=== PATIENT | male | born 1950 | race Caucasian/White ===

== ENCOUNTER 2016-12-11 09:03 | Inpatient (IN) | payer OTHER ==
[~2016-12-11] VITALS: Ht 185.4 cm; Wt 76.2 kg
[2016-12-11] VITALS (10 sets, daily range): BP systolic 154–172; BP diastolic 68–94; PULSE 69–83; TEMP 36.5–36.9; O2SAT 90–96; Ht 185.4 cm; Wt 76.2 kg
[~2016-12-11 09:03] MED LIST: ADVIN50050 INH; ALBUAER19 INH; ALBUAER2 INH; AMLO-114 PO; ASPI81TA25 PO; ATRIN INH; CARV25TA2 PO; CLON0.2T11 PO; CLR10 PO; IPRASOL4 INH; MELA3TAB PO; NITR0.4S SL; OXGN; PRAZ5CAP2 PO; PRED20TA2 PO; TIOTCAP INH; TRAZ100T29 PO
[2016-12-11] MEDS ORDERED: DXP/75 PO (09:18)
[2016-12-11] MEDS ORDERED: PRED10TA PO (09:18)
[2016-12-11] MEDS ORDERED: THEO400T PO (09:18)
[2016-12-11] MEDS ORDERED: DOCU1TAB6 PO (09:18)
[2016-12-11] MEDS ORDERED: SNQ/25 PO (09:18)
[2016-12-11] MEDS ORDERED: FIBER PO (09:18)
[2016-12-11] MEDS ORDERED: FLM4 PO (09:18)
[2016-12-11] MEDS ORDERED: DOXE100C4 PO (09:18)
[2016-12-11] MEDS ORDERED: PROMETHAZINE HCL INJ 12.5 MG in SODIUM CHLORIDE 0.9% 50ML 50 ML IV STA (09:40)
[2016-12-11] MEDS ORDERED: OPTIRAY 320 IV PRN (09:45)
--- NOTE | 2016-12-11 09:49 | EMERGENCY ROOM VISIT NOTE ---
History Report prepared by Soni: [facility] [place] Under the Supervision of: Dr. Dean Woods M.D. First contact with patient: 09:36 Chief Complaint: ABDOMINAL PAIN Stated Complaint: ABD PAIN/ [facility] Nursing Triage Summary: Pt. has not had a bowel movement since . He is nauseated. Today while waiting in the med line at [facility], he had a syncopal episode. He denies injury. He arrives via BLS with guards stating his pain is 9/10. He has some SOB. History of Present Illness The patient is a 66 year old male who presents to the Emergency Room with complaints of worsening generalized abdominal pain that started a couple days ago. The patient came to the ED via ambulance from [facility]. The patient was in the med line at [facility] today when he experienced a syncopal episode. He states that his abdominal pain worsened this morning and then he experienced syncope. The patient states that he has not had a bowel movement for the past 4 days. He states that he has experienced problems with constipation in the past. He is also experiencing abdominal bloating and nausea. The patient denies any other significant abdominal problems beside constipation. He also denies any previous abdominal surgeries. Source of History: patient Onset: a couple days ago Position: abdomen (generalized) Quality: other (abdominal pain) Timing: worsening Associated Symptoms: + LOC, + nausea Note: abdominal bloating Review of Systems All systems have been listed, reviewed, and are negative other than those previously mentioned. Please see Additional Medical History Sheet. Past Medical & Surgical Medical Problems: (1) Colitis (2) Coronary artery disease (3) History of anxiety (4) History of asthma (5) History of BPH (6) History of colon polyps (7) History of COPD (8) History of depression (9) History of hepatitis C (10) History of hypertension (11) History of PTSD (12) Pancreatic lesion (13) Tobacco use Surgical Problems: (1) Status post arthroscopic knee surgery (2) Status post hemorrhoidectomy (3) Status post hernia repair Family History Cancer Heart disease Hypertension Stroke Social History Smoking Status: Former Smoker Alcohol Use: none Housing Status: other Occupation Status: other Current/Historical Medications Scheduled Amlodipine (Norvasc), 10 MG PO DAILY Aspirin (Aspir-Low), 81 MG PO DAILY Carvedilol (Coreg), 50 MG PO BID Clonidine Hcl (Catapres), 0.4 MG PO BID Docusate Sodium (Docusate Sodium), 100 MG PO BID Doxepin (Sinequan), 25 MG PO QAM Doxepin Hcl (Doxepin), 75 MG PO QPM Doxepin Hcl (Doxepin), 100 MG PO QPM Fiber Laxative (Fiber Laxative), 1 TAB PO DAILY Nitroglycerin (Nitrostat), 0.4 MG UT PRN Prednisone Tab (Prednisone), 10 MG PO DIRECTED Tamsulosin HCl (Tamsulosin HCl), 0.4 MG PO HS Theophylline (Theophylline ER), 450 MG PO BID Tiotropium [place] (Spiriva Handihaler), 1 PUFF INH QAM [[id number]], 1 PUFF INH BID Scheduled PRN Albuterol (Ventolin), 2 PUFFS INH QID PRN for Wheezing Allergies Coded Allergies: No Known Allergies (Unverified , 12/11/16) Physical Exam Vital Signs Date Time Temp Pulse Resp B/P (MAP) Pulse Ox O2 Delivery O2 Flow Rate FiO2 12/11/16 12:42 96 Room Air 12/11/16 12:09 85 20 170/101 96 Room Air 12/11/16 10:34 80 16 145/79 98 Room Air 12/11/16 09:06 36.9 85 20 142/93 95 Room Air Physical Exam GENERAL: Patient awake, alert, oriented x 3. Patient follows commands. Patient does not appear toxic. Patient is adequately hydrated and well- nourished. SKIN: No erythema, pallor, cyanosis or rash HEENT: Normal head, pupils equal, reactive to light and accommodation. LUNGS: Clear to auscultation. Patient is tachypneic. No wheezes, no rales, no rhonchi. HEART: No murmurs. No gallops. No rubs ABDOMEN: Marked distention of abdomen. No bowel sounds to auscultation. Generalized abdominal tenderness. No masses, no rebound, no hepatomegaly or splenomegaly. EXTREMITIES: No signs of trauma or infection. RECTAL: External hemorrhoid. No fecal impaction. No masses. Prostate enlarged. NEUROLOGIC: Cranial nerves II-XII within normal limits. No gross motor sensory function deficits. Medical Decision & Procedures ER Provider Diagnostic Interpretation: CT results are interpretations by the radiologist and per my review. CT SCAN OF THE ABDOMEN AND PELVIS WITH IV CONTRAST FINDINGS: Lung bases: The heart is normal in size and there is trace pericardial fluid. Advanced emphysema is present at the lung bases. Foci of scarring versus atelectasis are seen at the right lung base. No airspace consolidation is seen typical for pneumonia and there is no pleural effusion. There is a tiny hiatal hernia. Liver: The contrast-enhanced liver is normal in size, contour, and attenuation. There is no intrahepatic biliary ductal dilatation. The hepatic veins and portal veins are patent. Gallbladder: Unremarkable. Spleen: Normal in size and attenuation. Pancreas: There is moderate glandular atrophy of the pancreas. There are numerous parenchymal calcifications consistent with chronic pancreatitis. There is a 2.0 x 1.8 cm cystic lesion seen in the pancreatic head on axial image #132. Adrenal glands: Unremarkable. Kidneys: The contrast enhanced kidneys are atrophic and without hydronephrosis. The kidneys enhance symmetrically. Renal cysts measure up to 2.9 cm. Additional subcentimeter cortical hypodensities also likely represent cysts but are too small for definitive characterization. Abdominal vasculature: The abdominal aorta is normal in course and caliber noting advanced atherosclerotic calcification. There is high-grade stenosis of the left common iliac artery. Bowel: There is severe constipation. There is wall thickening and pericolonic inflammation seen involving the descending colon and proximal sigmoid consistent with stercoral colitis. The cecum is located in the left lower quadrant and measures up to 9.5 cm in diameter. There is a focal change in caliber of the colon in the proximal sigmoid region on axial image #338. The distal sigmoid is decompressed. The small bowel loops are normal in caliber. The appendix is not identified. Peritoneum: There is no intraperitoneal free air. There is a small amount of free fluid in the left paracolic gutter and pelvis. Lymphadenopathy: None. Pelvic viscera: The prostate gland is enlarged and heterogeneous. This measures up to 5.2 cm in transverse diameter and there is median lobe hypertrophy. The bladder is distended and grossly unremarkable. There is a fat-containing left inguinal hernia. Skeletal structures: The skeletal structures are osteopenic. Mild to moderate lumbosacral spondylosis is observed. A large disc herniation is suggested at L3-L4. No lytic or blastic lesions are seen. IMPRESSION: 1. There is severe constipation, and the colon is markedly distended with stool. There is mild wall thickening and pericolonic inflammation seen involving the descending colon and sigmoid consistent with stercoral colitis. 2. The cecum is located in the left lower quadrant and measures up to 9.5 cm diameter. 3. There is a transition point identified in the proximal sigmoid colon, with the remainder of the rectosigmoid colon decompressed. Although no lesion is identified, a stricture or obstructing mass lesion would be impossible to exclude. Follow-up with colonoscopy when the patient is clinically able is recommended. 4. The small bowel loops are normal in caliber. 5. Advanced emphysema. 6. There is evidence of chronic pancreatitis. 7. There is a 2.0 cm lobulated water attenuation/cystic lesion in the pancreatic head. The appearance is most typical for a large IPMN or mucinous cystic neoplasm. Nonemergent GI follow-up is recommended. Endoscopic ultrasound could be considered for further assessment. A pancreatic protocol CT or MRI is unlikely to provide further information in this case. 8. Advanced atherosclerotic disease with high-grade stenosis of the left common iliac artery. 9. Prostatomegaly. 10. There is a small volume of free fluid in the left paracolic gutter and pelvis, likely on a reactive basis. 11. A large disc herniation is suggested at L3-L4. 12. Additional findings as above. Electronically signed by: Johann Peña M.D. 12/11/2016 10:43 AM Dictated Date/Time: 12/11/2016 10:28 AM Laboratory Results 12/11/16 09:15 Red Blood Count 5.42, Mean Corpuscular Volume 89.9, Mean Corpuscular Hemoglobin 32.7, Mean Corpuscular Hemoglobin Concent 36.3, Mean Platelet Volume 8.9, Neutrophils (%) (Auto) 81.0, Lymphocytes (%) (Auto) 9.7, Monocytes (%) (Auto) 8.1, Eosinophils (%) (Auto) 0.8, Basophils (%) (Auto) 0.0, Neutrophils # (Auto) 17.98, Lymphocytes # (Auto) 2.16, Monocytes # (Auto) 1.80, Eosinophils # (Auto) 0.18, Basophils # (Auto) 0.01 12/11/16 09:15 Test 12/11/16 09:15 12/11/16 10:30 White Blood Count 22.23 K/uL (4.8-10.8) Red Blood Count 5.42 M/uL (4.7-6.1) Hemoglobin 17.7 g/dL (14.0-18.0) Hematocrit 48.7 % (42-52) Mean Corpuscular Volume 89.9 fL (80-100) Mean Corpuscular Hemoglobin 32.7 pg (25-34) Mean Corpuscular Hemoglobin Concent 36.3 g/dl (32-36) Platelet Count 369 K/uL (130-400) Mean Platelet Volume 8.9 fL (7.4-10.4) Neutrophils (%) (Auto) 81.0 % Lymphocytes (%) (Auto) 9.7 % Monocytes (%) (Auto) 8.1 % Eosinophils (%) (Auto) 0.8 % Basophils (%) (Auto) 0.0 % Neutrophils # (Auto) 17.98 K/uL (1.4-6.5) Lymphocytes # (Auto) 2.16 K/uL (1.2-3.4) Monocytes # (Auto) 1.80 K/uL (0.11-0.59) Eosinophils # (Auto) 0.18 K/uL (0-0.5) Basophils # (Auto) 0.01 K/uL (0-0.2) RDW Standard Deviation 45.5 fL (36.4-46.3) RDW Coefficient of Variation 13.8 % (11.5-14.5) Immature Granulocyte % (Auto) 0.4 % Immature Granulocyte # (Auto) 0.10 K/uL (0.00-0.02) Prothrombin Time 10.8 SECONDS (9.0-12.0) Prothromb Time International Ratio 1.0 (0.9-1.1) Activated Partial Thromboplast Time 27.9 SECONDS (21.0-31.0) Partial Thromboplastin Ratio 1.1 Anion Gap 6.0 mmol/L (3-11) Est Creatinine Clear Calc Drug Dose 64.9 ml/min Estimated GFR () 66.8 Estimated GFR (Non- 57.7 BUN/Creatinine Ratio 14.1 (10-20) Calcium Level 8.8 mg/dl (8.5-10.1) Total Bilirubin 0.5 mg/dl (0.2-1) Aspartate Amino Transf (AST/SGOT) 22 U/L (15-37) Alanine Aminotransferase (ALT/SGPT) 35 U/L (12-78) Alkaline Phosphatase 63 U/L (45-117) Troponin I < 0.015 ng/ml (0-0.045) Total Protein 6.7 gm/dl (6.4-8.2) Albumin 3.6 gm/dl (3.4-5.0) Globulin 3.1 gm/dl (2.5-4.0) Albumin/Globulin Ratio 1.2 (0.9-2) Lipase 125 U/L (73-393) Urine Color DK YELLOW Urine Appearance CLEAR (CLEAR) Urine pH 5.5 (4.5-7.5) Urine Specific [place] 1.019 (1.000-1.030) Urine Protein NEG (NEG) Urine Glucose (UA) NEG (NEG) Urine Ketones TRACE (NEG) Urine Occult Blood NEG (NEG) Urine Nitrite NEG (NEG) Urine Bilirubin NEG (NEG) Urine Urobilinogen NEG (NEG) Urine Leukocyte Esterase TRACE (NEG) Urine WBC (Auto) 1-5 /hpf (0-5) Urine RBC (Auto) 0-4 /hpf (0-4) Urine Hyaline Casts (Auto) 1-5 /lpf (0-5) Urine Epithelial Cells (Auto) 5-10 /lpf (0-5) Urine Bacteria (Auto) NEG (NEG) Laboratory results as stated above per my review. Medications Administered Medications (Trade) Dose Ordered Sig/Uma Route Start Time Stop Time Status Last Admin Dose Admin Morphine Sulfate (MoRPHine SULFATE INJ) 8 mg Q1H PRN IV 12/11/16 09:45 12/11/16 13:47 DC 12/11/16 13:03 8 MG Promethazine HCl 12.5 mg/Sodium Chloride 50.5 ml @ 204 mls/hr NOW STAT IV 12/11/16 09:40 12/11/16 09:54 DC 12/11/16 10:02 204 MLS/HR Acetaminophen 100 ml @ 400 mls/hr Q8H PRN IV 12/11/16 12:15 01/10/17 12:14 12/11/16 15:16 400 MLS/HR ECG Indication: syncope Rate (beats per minute): 78 Rhythm: normal sinus Findings: nonspecific-ST abn, no ectopy, other (normal axis) ED Course 0935: Past medical records reviewed. The patient was evaluated in room B12. A complete history and physical examination was performed. 0940: Ordered Promethazine HCl 12.5 mg/Sodium Chloride 50.5 ml @ 204 mls/hr IV 0945: Ordered Morphine Sulfate 8 mg IV 1103: Discussed the patient's case with Dr. Izquierdo - General Surgery. She recommended doing a Gastrografin enema. 1111: Discussed the patient's case with Dr. Peña - Radiology. He felt the Gastrografin enema was not indicated and I explained that I will have him speak directly with Dr. Izquierdo. 1136: Dr. Izquierdo let me know that she evaluated the patient. She also discussed the patient's case with Dr. Peña. The patient had a barium enema in the past that was unremarkable as well as an unremarkable colonoscopy in April. She recommends a soap suds enema and having the patient admitted to medicine until the constipation has resolved. 1139: Dr. Deedee GREWAL was called, but I did not get to discuss the patient's case with him. 1144: Upon reevaluation, the patient is resting comfortably. I discussed today' s findings with him. He verbalized agreement of the treatment plan. The patient will be evaluated for further management. Medical Decision Nurses notes reviewed. Medical history sheet reviewed. Differential diagnosis includes but is not limited to: bowel obstruction, constipation, neoplastic disease. Multiple labs and imaging were obtained. Please see above. The patient is here with no bowel movement for the past 5-6 days. He has marked distention of his abdomen with significant tenderness. There are no bowel sounds auscultated. CT reveals severe constipation with questionable bowel obstruction. Case was discussed with surgery and with radiology. The patient's white count is elevated. Patient will require further evaluation in the hospital. The patient was given a soapsuds enema. Medication Reconciliation: I attest that I have personally reviewed the patient' s current medication list. Consults Time Called: 1059 Consulting Physician: Dr. Izquierdo - General Surgery Returned Call: 1103 Discussed the patient's case with Dr. Izquierdo - General Surgery. She recommended doing a Gastrografin enema. Additional Consults: Time Called: 1111 Consulted Physician: Dr. Peña - Radiology Returned Call: -- Additional Comments: Discussed the patient's case with Dr. Peña - Radiology. He felt the Gastrografin enema was not indicated and I explained that I will have him speak directly with Dr. Izquierdo. Time Called: 1139 Consulted Physician: Dr. Mark - [facility] [place] Impression Primary Impression: Constipation Additional Impressions: Dilatation of colon Leukocytosis Scribe Attestation The scribe's documentation has been prepared under my direction and personally reviewed by me in its entirety. I confirm that the note above accurately reflects all work, treatment, procedures, and medical decision making performed by me. Departure Information Dispostion Being Evaluated By Hospitalist Referrals [facility] (PCP) Patient Instructions My [facility] Problem Qualifiers Primary Impression: Constipation Constipation type: unspecified constipation type Qualified Codes: K59.00 - Constipation, unspecified Additional Impressions: Leukocytosis Leukocytosis type: unspecified Qualified Codes: D72.829 - Elevated white blood cell count, unspecified
[2016-12-11 09:55] LABS: BASO ABS # 0.01 K/uL (0-0.2); COMPLETE YES; EOS % 0.8 %; HEMATOCRIT 48.7 % (42-52); IG% 0.4 %; LYMPH % 9.7 %; LYMPH ABS # 2.16 K/uL (1.2-3.4); MEAN CELL VOLUME 89.9 fL (80-100); MEAN CORPUSCULAR HEMOGLOBIN 32.7 pg (25-34); MEAN CORPUSCULAR HGB CONC 36.3 g/dl (32-36); MEAN PLATELET VOLUME 8.9 fL (7.4-10.4); MONO % 8.1 %; PLATELET COUNT 369 K/uL (130-400); RED BLOOD COUNT 5.42 M/uL (4.7-6.1); WHITE BLOOD COUNT 22.23 K/uL (4.8-10.8)
[2016-12-11] MEDS: MoRPHine SULFATE 10 MG/ML CARP/VIAL IV PRN ×2 (09:57→13:03)
[2016-12-11 10:02] LABS: PARTIAL THROMBOPLASTIN RATIO 1.1; PROTHROMBIN TIME (PATIENT) 10.8 SECONDS (9.0-12.0)
[2016-12-11 10:03] LABS: ALT/SGPT 35 U/L (12-78); AST/SGOT 22 U/L (15-37); BLOOD UREA NITROGEN 18 mg/dl (7-18); BUN/CREATININE RATIO 14.1 (10-20); CALCIUM 8.8 mg/dl (8.5-10.1); CARBON DIOXIDE 28 mmol/L (21-32); CHLORIDE 105 mmol/L (98-107); GLUCOSE 131 mg/dl (70-99); POTASSIUM 3.5 mmol/L (3.5-5.1); SODIUM 139 mmol/L (136-145)
[2016-12-11 10:08] LABS: ALB/GLOB RATIO 1.2 (0.9-2); ALKALINE PHOSPHATASE 63 U/L (45-117)
[2016-12-11 10:42] LABS: URINE APPEARANCE CLEAR (CLEAR); URINE COLOR DK YELLOW; URINE NITRITE NEG (NEG); URINE PH 5.5 (4.5-7.5); URINE SPECIFIC GRAVITY 1.019 (1.000-1.030); UROBILINOGEN NEG (NEG); ZZUR CULT IF INDIC CLEAN CATCH NO
--- NOTE | 2016-12-11 10:44 | DIAGNOSTIC IMAGING REPORT ---
CT SCAN OF THE ABDOMEN AND PELVIS WITH IV CONTRAST CLINICAL HISTORY: Generalized abdominal pain. Constipation. Abdominal distention. COMPARISON STUDY: Barium enema dated 03/28/2016. TECHNIQUE: Following the IV administration of 116 cc of Optiray 320, CT scan of the abdomen and pelvis is performed from the lung bases to the proximal femora. Images are reviewed in the axial, sagittal, and coronal planes. IV contrast was administered without complication. Automated dose control exposure was utilized. CT DOSE: 335.69 mGy.cm FINDINGS: Lung bases: The heart is normal in size and there is trace pericardial fluid. Advanced emphysema is present at the lung bases. Foci of scarring versus atelectasis are seen at the right lung base. No airspace consolidation is seen typical for pneumonia and there is no pleural effusion. There is a tiny hiatal hernia. Liver: The contrast-enhanced liver is normal in size, contour, and attenuation. There is no intrahepatic biliary ductal dilatation. The hepatic veins and portal veins are patent. Gallbladder: Unremarkable. Spleen: Normal in size and attenuation. Pancreas: There is moderate glandular atrophy of the pancreas. There are numerous parenchymal calcifications consistent with chronic pancreatitis. There is a 2.0 x 1.8 cm cystic lesion seen in the pancreatic head on axial image #132. Adrenal glands: Unremarkable. Kidneys: The contrast enhanced kidneys are atrophic and without hydronephrosis. The kidneys enhance symmetrically. Renal cysts measure up to 2.9 cm. Additional subcentimeter cortical hypodensities also likely represent cysts but are too small for definitive characterization. Abdominal vasculature: The abdominal aorta is normal in course and caliber noting advanced atherosclerotic calcification. There is high-grade stenosis of the left common iliac artery. Bowel: There is severe constipation. There is wall thickening and pericolonic inflammation seen involving the descending colon and proximal sigmoid consistent with stercoral colitis. The cecum is located in the left lower quadrant and measures up to 9.5 cm in diameter. There is a focal change in caliber of the colon in the proximal sigmoid region on axial image #338. The distal sigmoid is decompressed. The small bowel loops are normal in caliber. The appendix is not identified. Peritoneum: There is no intraperitoneal free air. There is a small amount of free fluid in the left paracolic gutter and pelvis. Lymphadenopathy: None. Pelvic viscera: The prostate gland is enlarged and heterogeneous. This measures up to 5.2 cm in transverse diameter and there is median lobe hypertrophy. The bladder is distended and grossly unremarkable. There is a fat-containing left inguinal hernia. Skeletal structures: The skeletal structures are osteopenic. Mild to moderate lumbosacral spondylosis is observed. A large disc herniation is suggested at L3-L4. No lytic or blastic lesions are seen. IMPRESSION: 1. There is severe constipation, and the colon is markedly distended with stool. There is mild wall thickening and pericolonic inflammation seen involving the descending colon and sigmoid consistent with stercoral colitis. 2. The cecum is located in the left lower quadrant and measures up to 9.5 cm diameter. 3. There is a transition point identified in the proximal sigmoid colon, with the remainder of the rectosigmoid colon decompressed. Although no lesion is identified, a stricture or obstructing mass lesion would be impossible to exclude. Follow-up with colonoscopy when the patient is clinically able is recommended. 4. The small bowel loops are normal in caliber. 5. Advanced emphysema. 6. There is evidence of chronic pancreatitis. 7. There is a 2.0 cm lobulated water attenuation/cystic lesion in the pancreatic head. The appearance is most typical for a large IPMN or mucinous cystic neoplasm. Nonemergent GI follow-up is recommended. Endoscopic ultrasound could be considered for further assessment. A pancreatic protocol CT or MRI is unlikely to provide further information in this case. 8. Advanced atherosclerotic disease with high-grade stenosis of the left common iliac artery. 9. Prostatomegaly. 10. There is a small volume of free fluid in the left paracolic gutter and pelvis, likely on a reactive basis. 11. A large disc herniation is suggested at L3-L4. 12. Additional findings as above. Electronically signed by: Johann Peña M.D. 12/11/2016 10:43 AM Dictated Date/Time: 12/11/2016 10:28 AM
[2016-12-11 10:53] LABS: MANUAL MICROSCOPIC REQUIRED? NO; REVIEW REQ? NO; URINE BILIRUBIN NEG (NEG)
--- NOTE | 2016-12-11 12:11 | Pre-Operative Consultation ---
History General Date of Service: Dec 11, 2016. Chief Complaint: no bowel movement HPI HPI: The patient is a 66 year old male being seen at the request of Dr. Woods for severe constipation. He is incarcerated at [facility]. Notes that at four to five previous times, he has developed severe constipation similar to this episode which required treatment with laxatives. He has a family history of colon cancer in his father and other paternal relatives (father was diagnosed with metastatic disease when he presented with obstructing colon cancer around age 72 ). He has undergone a colonoscopy in June 2016 but is unsure where this was done. This time, he has been fighting constipation since his incarceration due to decreased cold water availability and his inability to use his typical fiber/ laxative regimen. Since , he has not had a bowel movement or passed flatus. His abdomen has become increasingly distended with waves of 10/10 crampy generalized non radiating abdominal pain. No relieving or exacerbating factors. No vomiting although he has just started to feel nauseated since last night. This was worsened when he was given lactulose last night. This episode feels the most severe to him. CT scan was done and showed stool filled colon with 9.5 cm cecum and a stool ball lodged in left side with stercoral colitis. Historian: patient Risk Assessment Daily beta katty use?: No Medical & Surgical History Past Medical History: Past Medical/Surgical History Medical Problems: (1) Coronary artery disease Status: Chronic (2) History of anxiety Status: Chronic (3) History of asthma Status: Chronic (4) History of BPH Status: Chronic (5) History of colon polyps Permanent Comment: family hx colon Ca + personal history colonic polyps Status: Chronic (6) History of COPD Status: Chronic (7) History of depression Status: Chronic (8) History of hepatitis C Status: Chronic (9) History of hypertension Status: Chronic (10) History of PTSD Status: Chronic (11) Tobacco use Status: Chronic Surgical Problems: (1) Status post arthroscopic knee surgery Status: Resolved (2) Status post hemorrhoidectomy Status: Resolved (3) Status post hernia repair Status: Resolved . . Past Surgical History: hernia repair (right groin), other (hemorrhoidectomy and arthroscopic surgery) Family History Family History: Family History Mother- hypertension, stroke. Father- colon Ca, [place]. Paternal grandfather and paternal aunt had colon cancer. Social History Hx Tobacco Use In Past Year?: Yes (QUIT FEB 2012) Smoking Status: Former Smoker Alcohol: none Housing status: other (incarcerated at [facility]) Occupation status: other Immunizations Have You Had Influenza Vaccine: No Have You Had Tetanus Vaccine: UTD History of Pneumococcal: Unknown History Hepatitis B Vaccine: Unknown Allergies Allergies: Coded Allergies: No Known Allergies (Unverified , 12/11/16) Medications Current Inpatient Medications Current Inpatient Medications Medications (Trade) Dose Ordered Sig/Uma Route Start Time Stop Time Status Last Admin Dose Admin Morphine Sulfate (MoRPHine SULFATE INJ) 8 mg Q1H PRN IV 12/11/16 09:45 12/25/16 09:44 12/11/16 09:57 8 MG Ioversol (Optiray 320) 100 ml UD PRN IV 12/11/16 09:45 12/15/16 09:44 Review of Systems Review of Systems Constitutional: no symptoms reported Eyes: reports: no symptoms ENT: reports: no symptoms reported Cardiovascular: reports: no symptoms reported Respiratory: reports: no symptoms reported Gastrointestinal: see HPI, other (pos for hemorrhoids) Genitourinary - Male: reports: no symptoms, other (h/o testicular surgery) Musculoskeletal: no symptoms reported Integumentary: no symptoms reported Neurologic: reports: no symptoms Endocrine: no symptoms Physical Exam Physical Exam General Appearance: + WD/WN, No distress Ears, Nose, Throat: + normal ENT inspection Neck: No abnormal inspection, No limited range of motion Respiratory: No chest tenderness, No accessory muscle use, No decreased breath sounds Cardiovascular: No abnormal rate, No diastolic murmur, No abnormal rhythm, No systolic murmur Abdomen: + abnormal bowel sounds (absent), + tenderness (diffuse, mild, no peritoneal signs), + distension (moderate), No guarding, No mass Extremities: No edema, No slow capillary refill Neurologic/Psychiatric: No decreased LOC, No motor deficit/weakness Skin Characteristics: No abnormal color Diagnostics Labs Labs Results Past 24 Hours Test 12/11/16 09:15 12/11/16 10:30 Range/Units White Blood Count 22.23 4.8-10.8 K/uL Red Blood Count 5.42 4.7-6.1 M/uL Hemoglobin 17.7 14.0-18.0 g/dL Hematocrit 48.7 42-52 % Mean Corpuscular Volume 89.9 80-100 fL Mean Corpuscular Hemoglobin 32.7 25-34 pg Mean Corpuscular Hemoglobin Concent 36.3 32-36 g/dl Platelet Count 369 130-400 K/uL Mean Platelet Volume 8.9 7.4-10.4 fL Neutrophils (%) (Auto) 81.0 % Lymphocytes (%) (Auto) 9.7 % Monocytes (%) (Auto) 8.1 % Eosinophils (%) (Auto) 0.8 % Basophils (%) (Auto) 0.0 % Neutrophils # (Auto) 17.98 1.4-6.5 K/uL Lymphocytes # (Auto) 2.16 1.2-3.4 K/uL Monocytes # (Auto) 1.80 0.11-0.59 K/uL Eosinophils # (Auto) 0.18 0-0.5 K/uL Basophils # (Auto) 0.01 0-0.2 K/uL RDW Standard Deviation 45.5 36.4-46.3 fL RDW Coefficient of Variation 13.8 11.5-14.5 % Immature Granulocyte % (Auto) 0.4 % Immature Granulocyte # (Auto) 0.10 0.00-0.02 K/uL Prothrombin Time 10.8 9.0-12.0 SECONDS Prothromb Time International Ratio 1.0 0.9-1.1 Activated Partial Thromboplast Time 27.9 21.0-31.0 SECONDS Partial Thromboplastin Ratio 1.1 Sodium Level 139 136-145 mmol/L Potassium Level 3.5 3.5-5.1 mmol/L Chloride Level 105 98-107 mmol/L Carbon Dioxide Level 28 21-32 mmol/L Anion Gap 6.0 3-11 mmol/L Blood Urea Nitrogen 18 7-18 mg/dl Creatinine 1.30 0.60-1.40 mg/dl Est Creatinine Clear Calc Drug Dose 64.9 ml/min Estimated GFR () 66.8 Estimated GFR (Non- 57.7 BUN/Creatinine Ratio 14.1 10-20 Random Glucose 131 70-99 mg/dl Calcium Level 8.8 8.5-10.1 mg/dl Total Bilirubin 0.5 0.2-1 mg/dl Aspartate Amino Transf (AST/SGOT) 22 15-37 U/L Alanine Aminotransferase (ALT/SGPT) 35 12-78 U/L Alkaline Phosphatase 63 45-117 U/L Troponin I < 0.015 0-0.045 ng/ml Total Protein 6.7 6.4-8.2 gm/dl Albumin 3.6 3.4-5.0 gm/dl Globulin 3.1 2.5-4.0 gm/dl Albumin/Globulin Ratio 1.2 0.9-2 Lipase 125 73-393 U/L Urine Color DK YELLOW Urine Appearance CLEAR CLEAR Urine pH 5.5 4.5-7.5 Urine Specific [place] 1.019 1.000-1.030 Urine Protein NEG NEG Urine Glucose (UA) NEG NEG Urine Ketones TRACE NEG Urine Occult Blood NEG NEG Urine Nitrite NEG NEG Urine Bilirubin NEG NEG Urine Urobilinogen NEG NEG Urine Leukocyte Esterase TRACE NEG Urine WBC (Auto) 1-5 0-5 /hpf Urine RBC (Auto) 0-4 0-4 /hpf Urine Hyaline Casts (Auto) 1-5 0-5 /lpf Urine Epithelial Cells (Auto) 5-10 0-5 /lpf Urine Bacteria (Auto) NEG NEG Lab Interpretation Lab Interpretation: labs were reviewed Diagnostic Radiology Diagnostic Radiology CT scan personally reviewed. Impression Assessment and Plan Assessment and Plan 66 yr old man with severe constipation due to stool ball lodged in left colon and stercoral colitis. Will need laxative/ enema regimen to help clean out his bowels. CT report mentions possible transition point - discussed with Dr. Peña of radiology who feels that this is due to a stool ball as opposed to a stricture (prior negative barium enema in March 2016, neg cscope by pt's report in Jun 2016, no mucosal finding on CT). Thus, it should be safe to try laxatives from above in addition to enemas. Would treat with IV abx given the stercoral colitis. NPO until able to clear the stool. All questions answered. Will follow.
[2016-12-11] MEDS ORDERED: ONDANSETRON INJ 2 MG/ML 2 ML VIAL IV PRN (12:15)
[2016-12-11] MEDS ORDERED: LEVALBUTEROL/IPRATROPIUM NEB INH PRN (12:15)
[2016-12-11] MEDS ORDERED: NITROGLYCERIN 0.4 MG SL PER TAB CHARGE UT PRN (12:15)
[2016-12-11] MEDS ORDERED: ACETAMINOPHEN IV 100 ML IV PRN (12:15)
[2016-12-11] MEDS ORDERED: ALBUTEROL HFA 8 GM INHALER INH PRN (12:15)
--- NOTE | 2016-12-11 12:41 | History and Physical ---
History & Physical Date & Time of Service: Dec 11, 2016 at 12:22 Chief Complaint: Abd Pain/ [facility] Primary Care Physician: Paresh LINDSEY History of Present Illness Source: patient, hospital records The patient is a 66-year-old male inmate of [facility] who presents to the emergency department after syncopal episode while on the medication line. He reports has not had a bowel movement in about 4-5 days, and began experiencing significant pain about 2 days ago. He says his syncopal episode occurred when his abdominal pain worsened suddenly. He has had issues with constipation past but nothing to this extent. His abdominal pain is accompanied by bloating and nausea but he has not vomited. He does not have any history of abdominal surgeries. Past Medical/Surgical History Medical Problems: (1) Coronary artery disease Status: Chronic (2) History of anxiety Status: Chronic (3) History of asthma Status: Chronic (4) History of BPH Status: Chronic (5) History of colon polyps Permanent Comment: family hx colon Ca + personal history colonic polyps Status: Chronic (6) History of COPD Status: Chronic (7) History of depression Status: Chronic (8) History of hepatitis C Status: Chronic (9) History of hypertension Status: Chronic (10) History of PTSD Status: Chronic (11) Tobacco use Status: Chronic Surgical Problems: (1) Status post arthroscopic knee surgery Status: Resolved (2) Status post hemorrhoidectomy Status: Resolved (3) Status post hernia repair Status: Resolved Family History Cancer Heart disease Hypertension Stroke Social History Smoking Status: Former Smoker Smokeless Tobacco Use: No Alcohol Use: none Housing status: other (incarcerated at [facility]) Occupational Status: other Immunizations History of Influenza Vaccine: No History of Tetanus Vaccine?: UTD History of Pneumococcal: Unknown History of Hepatitis B Vaccine: Unknown Multi-Drug Resistant Organisms History of MDRO: No Allergies Coded Allergies: No Known Allergies (Unverified , 12/11/16) Home Medications Scheduled Amlodipine (Norvasc), 10 MG PO DAILY Aspirin (Aspir-Low), 81 MG PO DAILY Carvedilol (Coreg), 50 MG PO BID Clonidine Hcl (Catapres), 0.4 MG PO BID Docusate Sodium (Docusate Sodium), 100 MG PO BID Doxepin (Sinequan), 25 MG PO QAM Doxepin Hcl (Doxepin), 75 MG PO QPM Doxepin Hcl (Doxepin), 100 MG PO QPM Fiber Laxative (Fiber Laxative), 1 TAB PO DAILY Nitroglycerin (Nitrostat), 0.4 MG UT PRN Prednisone Tab (Prednisone), 10 MG PO DIRECTED Tamsulosin HCl (Tamsulosin HCl), 0.4 MG PO HS Theophylline (Theophylline ER), 450 MG PO BID Tiotropium Mico (Spiriva Handihaler), 1 PUFF INH QAM [[id number]], 1 PUFF INH BID Scheduled PRN Albuterol (Ventolin), 2 PUFFS INH QID PRN for Wheezing Review of Systems The patient denies chest pain, palpitations, cough, lower extremity swelling, sore throat, fevers, chills, sweats, weight change, fatigue, vomiting, blood in urine or stool, dysuria, urinary frequency or urgency, memory loss, rash, abnormal bruising or bleeding, imbalance, focal or generalized weakness, numbness or tingling in arms or legs, arthralgias or myalgias, night sweats, or allergy symptoms. The review of systems is otherwise negative other than for that already noted above, and at least 10 systems have been reviewed. Physical Exam Vital Signs Date Time Temp Pulse Resp B/P (MAP) Pulse Ox O2 Delivery O2 Flow Rate FiO2 12/11/16 12:09 85 20 170/101 96 Room Air 12/11/16 10:34 80 16 145/79 98 Room Air 12/11/16 09:06 36.9 85 20 142/93 95 Room Air The patient is awake, alert and oriented 3, normocephalic and atraumatic, lying in bed and in no acute distress. HEENT--PERRL, EOMI, mucous membranes and oropharynx dry. Neck--supple, no JVD or bruits, thyroid normal, trachea midline, no adenopathy. Heart--normal S1 and S2, no extra beats, no murmurs, rubs or gallops. Lungs--few crackles at the bases bilaterally, no respiratory distress, no accessory muscle use. Abdomen--decreased bowel sounds, firm and distended, generalized tenderness. Extremities--no cyanosis, clubbing or edema. There are good distal pulses b/l. Dermatologic--normal skin turgor, normal color, warm and dry, no abnormal lymph nodes, no rash. Neurologic--cranial nerves II through XII grossly intact, motor and sensory examination normal. Rheumatologic--normal range of motion of joints. Psychiatric--normal affect. Diagnostics Laboratory Results Results Past 24 Hours Test 12/11/16 09:15 12/11/16 10:30 Range/Units White Blood Count 22.23 4.8-10.8 K/uL Red Blood Count 5.42 4.7-6.1 M/uL Hemoglobin 17.7 14.0-18.0 g/dL Hematocrit 48.7 42-52 % Mean Corpuscular Volume 89.9 80-100 fL Mean Corpuscular Hemoglobin 32.7 25-34 pg Mean Corpuscular Hemoglobin Concent 36.3 32-36 g/dl Platelet Count 369 130-400 K/uL Mean Platelet Volume 8.9 7.4-10.4 fL Neutrophils (%) (Auto) 81.0 % Lymphocytes (%) (Auto) 9.7 % Monocytes (%) (Auto) 8.1 % Eosinophils (%) (Auto) 0.8 % Basophils (%) (Auto) 0.0 % Neutrophils # (Auto) 17.98 1.4-6.5 K/uL Lymphocytes # (Auto) 2.16 1.2-3.4 K/uL Monocytes # (Auto) 1.80 0.11-0.59 K/uL Eosinophils # (Auto) 0.18 0-0.5 K/uL Basophils # (Auto) 0.01 0-0.2 K/uL RDW Standard Deviation 45.5 36.4-46.3 fL RDW Coefficient of Variation 13.8 11.5-14.5 % Immature Granulocyte % (Auto) 0.4 % Immature Granulocyte # (Auto) 0.10 0.00-0.02 K/uL Prothrombin Time 10.8 9.0-12.0 SECONDS Prothromb Time International Ratio 1.0 0.9-1.1 Activated Partial Thromboplast Time 27.9 21.0-31.0 SECONDS Partial Thromboplastin Ratio 1.1 Sodium Level 139 136-145 mmol/L Potassium Level 3.5 3.5-5.1 mmol/L Chloride Level 105 98-107 mmol/L Carbon Dioxide Level 28 21-32 mmol/L Anion Gap 6.0 3-11 mmol/L Blood Urea Nitrogen 18 7-18 mg/dl Creatinine 1.30 0.60-1.40 mg/dl Est Creatinine Clear Calc Drug Dose 64.9 ml/min Estimated GFR () 66.8 Estimated GFR (Non- 57.7 BUN/Creatinine Ratio 14.1 10-20 Random Glucose 131 70-99 mg/dl Calcium Level 8.8 8.5-10.1 mg/dl Total Bilirubin 0.5 0.2-1 mg/dl Aspartate Amino Transf (AST/SGOT) 22 15-37 U/L Alanine Aminotransferase (ALT/SGPT) 35 12-78 U/L Alkaline Phosphatase 63 45-117 U/L Troponin I < 0.015 0-0.045 ng/ml Total Protein 6.7 6.4-8.2 gm/dl Albumin 3.6 3.4-5.0 gm/dl Globulin 3.1 2.5-4.0 gm/dl Albumin/Globulin Ratio 1.2 0.9-2 Lipase 125 73-393 U/L Urine Color DK YELLOW Urine Appearance CLEAR CLEAR Urine pH 5.5 4.5-7.5 Urine Specific [place] 1.019 1.000-1.030 Urine Protein NEG NEG Urine Glucose (UA) NEG NEG Urine Ketones TRACE NEG Urine Occult Blood NEG NEG Urine Nitrite NEG NEG Urine Bilirubin NEG NEG Urine Urobilinogen NEG NEG Urine Leukocyte Esterase TRACE NEG Urine WBC (Auto) 1-5 0-5 /hpf Urine RBC (Auto) 0-4 0-4 /hpf Urine Hyaline Casts (Auto) 1-5 0-5 /lpf Urine Epithelial Cells (Auto) 5-10 0-5 /lpf Urine Bacteria (Auto) NEG NEG Diagnostic Radiology Patient Name: TUCKER BUREDN [id number] Unit Number : [id number] Dictated: 12/11/161027 Transcribed: 12/11/161027 EV Printed Date/Time: [~ rep prt dt]/[~ rep prt tm] [~ rep ct labl] - [~ rep ct ivnm] [facility] [place] [address] Dictated: 12/11/161027 Transcribed: 12/11/161027 EV Printed Date/Time: [~ rep prt dt]/[~ rep prt tm] [~ rep ct labl] - [~ rep ct ivnm] CT SCAN OF THE ABDOMEN AND PELVIS WITH IV CONTRAST CLINICAL HISTORY: Generalized abdominal pain. Constipation. Abdominal distention. COMPARISON STUDY: Barium enema dated 03/28/2016. TECHNIQUE: Following the IV administration of 116 cc of Optiray 320, CT scan of the abdomen and pelvis is performed from the lung bases to the proximal femora. Images are reviewed in the axial, sagittal, and coronal planes. IV contrast was administered without complication. Automated dose control exposure was utilized. CT DOSE: 335.69 mGy.cm FINDINGS: Lung bases: The heart is normal in size and there is trace pericardial fluid. Advanced emphysema is present at the lung bases. Foci of scarring versus atelectasis are seen at the right lung base. No airspace consolidation is seen typical for pneumonia and there is no pleural effusion. There is a tiny hiatal hernia. Liver: The contrast-enhanced liver is normal in size, contour, and attenuation. There is no intrahepatic biliary ductal dilatation. The hepatic veins and portal veins are patent. Gallbladder: Unremarkable. Spleen: Normal in size and attenuation. Pancreas: There is moderate glandular atrophy of the pancreas. There are numerous parenchymal calcifications consistent with chronic pancreatitis. There is a 2.0 x 1.8 cm cystic lesion seen in the pancreatic head on axial image #132. Adrenal glands: Unremarkable. Kidneys: The contrast enhanced kidneys are atrophic and without hydronephrosis. The kidneys enhance symmetrically. Renal cysts measure up to 2.9 cm. Additional subcentimeter cortical hypodensities also likely represent cysts but are too small for definitive characterization. Abdominal vasculature: The abdominal aorta is normal in course and caliber noting advanced atherosclerotic calcification. There is high-grade stenosis of the left common iliac artery. Bowel: There is severe constipation. There is wall thickening and pericolonic inflammation seen involving the descending colon and proximal sigmoid consistent with stercoral colitis. The cecum is located in the left lower quadrant and measures up to 9.5 cm in diameter. There is a focal change in caliber of the colon in the proximal sigmoid region on axial image #338. The distal sigmoid is decompressed. The small bowel loops are normal in caliber. The appendix is not identified. Peritoneum: There is no intraperitoneal free air. There is a small amount of free fluid in the left paracolic gutter and pelvis. Lymphadenopathy: None. Pelvic viscera: The prostate gland is enlarged and heterogeneous. This measures up to 5.2 cm in transverse diameter and there is median lobe hypertrophy. The bladder is distended and grossly unremarkable. There is a fat-containing left inguinal hernia. Skeletal structures: The skeletal structures are osteopenic. Mild to moderate lumbosacral spondylosis is observed. A large disc herniation is suggested at L3-L4. No lytic or blastic lesions are seen. IMPRESSION: 1. There is severe constipation, and the colon is markedly distended with stool. There is mild wall thickening and pericolonic inflammation seen involving the descending colon and sigmoid consistent with stercoral colitis. 2. The cecum is located in the left lower quadrant and measures up to 9.5 cm diameter. 3. There is a transition point identified in the proximal sigmoid colon, with the remainder of the rectosigmoid colon decompressed. Although no lesion is identified, a stricture or obstructing mass lesion would be impossible to exclude. Follow-up with colonoscopy when the patient is clinically able is recommended. 4. The small bowel loops are normal in caliber. 5. Advanced emphysema. 6. There is evidence of chronic pancreatitis. 7. There is a 2.0 cm lobulated water attenuation/cystic lesion in the pancreatic head. The appearance is most typical for a large IPMN or mucinous cystic neoplasm. Nonemergent GI follow-up is recommended. Endoscopic ultrasound could be considered for further assessment. A pancreatic protocol CT or MRI is unlikely to provide further information in this case. 8. Advanced atherosclerotic disease with high-grade stenosis of the left common iliac artery. 9. Prostatomegaly. 10. There is a small volume of free fluid in the left paracolic gutter and pelvis, likely on a reactive basis. 11. A large disc herniation is suggested at L3-L4. 12. Additional findings as above. Electronically signed by: Johann Peña M.D. 12/11/2016 10:43 AM Dictated Date/Time: 12/11/2016 10:28 AM The status of this report is Signed. Draft = Not yet reviewed or approved by Radiologist. Signed = Reviewed and approved by Radiologist. <AttendingPhy></AttendingPhy> <FamilyPhy>SCIParesh</FamilyPhy> <PrimaryPhy> SCIParesh</PrimaryPhy> <UnitNumber>[id number]</UnitNumber> <VisitNumber> [id number]</VisitNumber> <PatientName>TUCKER BURDEN [id number]</PatientName> < DateOfBirth>1950</DateOfBirth> <Location>C.EDB</Location> <ServiceDate>09/24</ServiceDate> <MNE>ESINDI</MNE> <OrderingPhy>Dean Woods M.D.</ OrderingPhy> <OrderingPhyMNE>f rep ord dr isidro</OrderingPhyMNE> <DictatingPhyMNE> f rep dict dr isidro</DictatingPhyMNE> <CCListMNE>f rep ct sanna</CCListMNE> < AdmittingPhyMNE>f pt admit dr isidro</AdmittingPhyMNE> <AttendingPhyMNE>f pt attend dr isidro</AttendingPhyMNE> <ConsultingPhyMNE>f pt consult dr isidro</ConsultingPhyMNE> <FamilyPhyMNE>f pt fam dr isidro</FamilyPhyMNE> <OtherPhyMNE>f pt other dr isidro</OtherPhyMNE> < PrimaryPhyMNE>f pt prim care dr isidro</PrimaryPhyMNE> <ReferringPhyMNE>f pt referring dr isidro</ReferringPhyMNE> EKG EKG shows normal sinus rhythm at 78 bpm, nonspecific ST changes inferiorly, diffuse nonspecific T-wave changes. Impression Assessment and Plan Stercoral colitis--the patient will be admitted to the hospital. He is receiving enema emergency department due to a functional obstruction likely due to a fecal ball in the proximal sigmoid colon. He will be placed on Zosyn 3.375 mg IV every 6 hours. Nothing by mouth status. Normal saline with KCl 20 mEq at 125 ML's per hour. He is been seen by Dr. Britany Izquierdo in the emergency department and will be consulted. CAD/hypertension--since patient will be nothing by mouth, he will be admitted to telemetry to administer IV medications. We will hold amlodipine 10 mg by mouth daily, aspirin 81 mg by mouth daily, carvedilol 50 mg by mouth twice a day , and clonidine 0.4 mg by mouth twice a day. We'll place him on Lopressor 5 mg IV every 4 hours, and Cardizem 10 mg IV every 4 hours when necessary systolic blood pressure greater than 150 after Lopressor IV and given. 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 BPH--hold tamsulosin 0.4 mg by mouth at bedtime. Orders for bladder scan and straight cath rhythm. COPD--continue Spiriva HandiHaler 1 puff every morning, and Advair discus 500/ 50 one inhalation twice a day. We'll have available Xopenex/Atrovent nebulizer every 2 hours when necessary. PTSD-old doxepin while nothing by mouth, will have IV Ativan 0.5 mg to 4 hours when necessary available. High-grade left common iliac artery stenosis--noted incidentally on CT, we will order lower extremity arterial Dopplers for further investigation. Fat-containing left inguinal hernia--noted, no symptoms. Level of Care Telemetry Advanced Directives Existing Advance Directive: No Existing Living Will: No Existing Power of Application Packaging Specialist: No Resuscitation Status FULL RESUSCITATION VTE Prophylaxis VTE Risk Assessment Done? Y/N: Yes Risk Level: Moderate Given or contraindicated: SCD's
[2016-12-11] MEDS ORDERED: PIPERACILL/TAZOBAC IV 3.375 GM in DEXTROSE 5% 100ML IV STA (13:02)
[2016-12-11] MEDS ORDERED: PIPERACILL/TAZOBAC CONSULT ACTIVE PRN (13:15)
[2016-12-11] MEDS ORDERED: LEVALBUTEROL 1.25MG/0.5ML NEB INH PRN (14:00)
[2016-12-11] MEDS ORDERED: IPRATROPIUM BROMIDE NEB SOLN 0.02% 2.5 ML VIAL INH PRN (14:00)
[2016-12-11] MEDS: NSS + 20MEQ KCL 1000ML 1,000 ML IV SCH ×2 (14:07→22:17)
[2016-12-11] MEDS: NITROGLYCERIN OINT 2% 1GM PACKET EXT SCH ×2 (15:17→20:08)
[2016-12-11] MEDS: METOPROLOL TARTRATE 1 MG/ML VIAL IV. SCH ×2 (15:58→20:08)
[2016-12-11] MEDS: DILTIAZEM HCL 5 MG/ML 5 ML VIAL IV PRN ×2 (17:44→23:08)
[2016-12-11] MEDS: KETOROLAC TROMETHAMINE 30 MG/ML VIAL IV PRN (18:07)
[2016-12-11] MEDS: FAMOTIDINE IV INJ 20 MG in DEXTROSE 5% 100ML 100 ML IV SCH (18:17)
[2016-12-11] MEDS: PIPERACILL/TAZOBAC IV 3.375 GM in DEXTROSE 5% 100ML 100 ML IV SCH (18:59)
[2016-12-11] MEDS: FLUTICASONE/SALMETEROL (ADVAIR) 500/50 INH 14 PUFF INH SCH (22:05)
--- NOTE | 2016-12-11 22:22 | DIAGNOSTIC IMAGING REPORT ---
ULTRASOUND BILATERAL LOWER EXTREMITY ARTERIAL; ANKLE-BRACHIAL INDICES CLINICAL HISTORY: Left iliac artery stenosis seen by CT. COMPARISON STUDY: Abdominal CT performed the same day 12/11/2016. TECHNIQUE: Real-time, grayscale, and color Doppler sonography of the arteries of the right and left lower extremity is performed from the inguinal crease to the foot. Ankle-brachial indices are calculated. FINDINGS: Ankle-brachial indices: Right brachial pressure measures 157. Pressures in the right posterior tibial artery measure 171 for an DELIA of 1.09 and pressures in the right dorsalis pedis artery measure 161 for an DELIA of 1.03. Left brachial pressure measures 156. Pressures in the left posterior tibial artery measure 165 for an DELIA of 1.02, and pressures in the left dorsalis pedis measure 140 for an DELIA of 0.89. Right lower extremity: There is atherosclerotic calcification and plaque seen throughout the arteries of the right lower extremity. There are triphasic arterial waveforms in the right common femoral artery with velocities measuring 149 cm/s. The right profundus femoris artery is patent with velocities measuring up to 80 cm/s. There are biphasic to triphasic waveforms seen in the superficial femoral artery with velocities measuring up to 138 cm/s. There are biphasic arterial waveforms in the popliteal artery with velocities measuring up to 74 cm/s. There is three-vessel runoff to the foot. Velocities within the calf vessels measure up to 80 cm/s. The dorsalis pedis artery is patent with velocities measuring up to 55 cm/s. Left lower extremity: There is atherosclerotic calcification and plaque seen throughout the arteries of the left lower extremity. There are triphasic arterial waveforms in the left common femoral artery with velocities measuring 153 cm/s. The left profundus femoris artery is patent with velocities measuring up to 138 cm/s. There are biphasic to triphasic waveforms seen in the superficial femoral artery with velocities measuring up to 158 cm/s. There are biphasic arterial waveforms in the popliteal artery with velocities measuring up to 58 cm/s. There is three-vessel runoff to the foot. Velocities within the calf vessels measure up to 75 cm/s. The dorsalis pedis artery is patent with velocities measuring up to 66 cm/s. IMPRESSION: 1. Atherosclerotic plaque with no sonographic evidence of high-grade stenosis or focal vessel cut off seen throughout the arteries of the right or left lower extremity 2. Ankle brachial indices as above. Electronically signed by: Johann Peña M.D. 12/11/2016 10:20 PM Dictated Date/Time: 12/11/2016 10:15 PM
[2016-12-12] VITALS (14 sets, daily range): BP systolic 122–191; BP diastolic 70–105; PULSE 73–92; TEMP 36.5–37; O2SAT 90–96
[2016-12-12] MEDS: METOPROLOL TARTRATE 1 MG/ML VIAL IV. SCH ×4 (00:11→12:02)
[2016-12-12] MEDS: KETOROLAC TROMETHAMINE 30 MG/ML VIAL IV PRN ×2 (00:11→07:01)
[2016-12-12] MEDS: PIPERACILL/TAZOBAC IV 3.375 GM in DEXTROSE 5% 100ML 100 ML IV SCH ×3 (02:03→18:05)
[2016-12-12] MEDS: NITROGLYCERIN OINT 2% 1GM PACKET EXT SCH ×4 (02:04→20:00)
[2016-12-12] MEDS: DILTIAZEM HCL 5 MG/ML 5 ML VIAL IV PRN ×2 (04:09→13:05)
[2016-12-12] MEDS: FAMOTIDINE IV INJ 20 MG in DEXTROSE 5% 100ML 100 ML IV SCH ×2 (05:45→17:28)
[2016-12-12] MEDS: NSS + 20MEQ KCL 1000ML 1,000 ML IV SCH ×2 (05:45→14:09)
[2016-12-12] MEDS: POLYETHYLENE (MIRALAX) 17 GM PACK PO SCH (07:43)
[2016-12-12] MEDS: FLUTICASONE/SALMETEROL (ADVAIR) 500/50 INH 14 PUFF INH SCH ×2 (07:56→20:02)
[2016-12-12] MEDS: TIOTROPIUM BROMIDE 5 PUFF/90 MCG INH INH SCH (07:57)
[2016-12-12] MEDS: MINERAL OIL ENEMA 133 ML BTL PR SCH (08:02)
[2016-12-12 08:31] LABS: BASO % 0.1 %; BASO ABS # 0.01 K/uL (0-0.2); COMPLETE YES; HEMATOCRIT 43.5 % (42-52); IG% 0.3 %; LYMPH % 8.8 %; LYMPH ABS # 1.32 K/uL (1.2-3.4); MEAN CELL VOLUME 90.4 fL (80-100); MEAN CORPUSCULAR HEMOGLOBIN 32.4 pg (25-34); MEAN CORPUSCULAR HGB CONC 35.9 g/dl (32-36); MEAN PLATELET VOLUME 8.2 fL (7.4-10.4); MONO % 6.1 %; NEUT % 81.7 %; PLATELET COUNT 257 K/uL (130-400); RED BLOOD COUNT 4.81 M/uL (4.7-6.1); WHITE BLOOD COUNT 15.01 K/uL (4.8-10.8)
[2016-12-12 09:03] LABS: BUN/CREATININE RATIO 18.5 (10-20); CALCIUM 8.3 mg/dl (8.5-10.1); CREATININE 0.92 mg/dl (0.60-1.40); MAGNESIUM 1.9 mg/dl (1.8-2.4); POTASSIUM 3.7 mmol/L (3.5-5.1)
--- NOTE | 2016-12-12 10:34 | Hospitalist Progress Note ---
Hospitalist Progress Note Date of Service Dec 12, 2016. (Swapna Bautista PA-C) Subjective Pt evaluation today including: conversation w/ patient, physical exam, chart review, lab review, review of studies Pain: Mild lower abd pain Voiding: no voiding problems The patient was seen and examined this morning. Pt reports lower abdominal soreness this morning but that he feels significantly improved compared to earlier. He had 3 large bowel movements with aggressive regimen to help remove sigmoid fecal ball. Pt denies nausea, vomiting, and is requesting a diet. Pt reports being seen by gen surg and they are agreeable to clears. Constitutional: No fever, No chills, No sweats Eyes: No diplopia ENT: No nasal symptoms, No trouble swallowing Respiratory: No wheezing, No shortness of breath, No dyspnea on exertion, No dyspnea at rest Cardiovascular: No chest pain, No palpitations Abdomen: + see HPI Musculoskeletal: No muscle pain, No swelling Male : + problem reported (hard to start stream) Neurologic: No weakness, No numbness/tingling Endo: No fatigue Skin: No rash, No itch (Swapna Bautista PA-C) Objective Vital Signs Date Time Temp Pulse Resp B/P (MAP) Pulse Ox O2 Delivery O2 Flow Rate FiO2 12/12/16 09:17 36.5 83 18 151/87 (108) 96 Room Air 12/12/16 08:45 Room Air 12/12/16 07:56 79 161/85 12/12/16 07:07 36.8 79 20 161/85 (110) 94 Room Air 12/12/16 04:19 75 16 174/90 (118) 12/12/16 04:14 73 17 165/87 (113) 12/12/16 04:10 73 16 179/95 (123) 12/12/16 04:00 Room Air 12/12/16 03:44 73 180/88 12/12/16 02:07 73 16 171/85 (113) 12/12/16 00:11 73 162/79 12/12/16 00:00 Room Air 12/11/16 23:29 36.7 72 18 172/94 (120) 90 Room Air 12/11/16 23:19 69 18 171/79 (109) 90 Room Air 12/11/16 23:14 75 162/76 (104) 90 Room Air 12/11/16 23:10 72 18 163/81 (108) 90 Room Air 12/11/16 20:20 36.9 73 18 156/68 (97) 94 Room Air 12/11/16 20:08 71 162/86 12/11/16 20:00 Room Air 12/11/16 17:10 74 168/80 (109) 12/11/16 16:00 Room Air 12/11/16 15:58 77 168/89 12/11/16 15:47 36.9 79 18 167/71 (103) 91 Room Air 12/11/16 15:26 78 16 92 Room Air 12/11/16 14:00 36.5 83 20 154/90 (111) 92 Room Air 12/11/16 13:02 84 20 172/101 96 Room Air 12/11/16 12:42 96 Room Air 12/11/16 12:09 85 20 170/101 96 Room Air 12/11/16 10:34 80 16 145/79 98 Room Air (Swapna Bautista PA-C) Physical Exam General Appearance: WD/WN, no apparent distress, + pertinent finding Eyes: PERRL, EOMI ENT: hearing grossly normal, pharynx normal Neck: supple, no JVD Respiratory/Chest: lungs clear, normal breath sounds, no respiratory distress, no accessory muscle use Cardiovascular: regular rate, rhythm, no edema, no murmur Abdomen: normal bowel sounds, non tender, soft, no organomegaly Extremities: non-tender, no pedal edema, no calf tenderness Neurologic/Psychiatric: alert, normal mood/affect, oriented x 3 Skin: normal color, warm/dry (Swapna Bautista, PA-C) Laboratory Results Last 24 Hours Test 12/11/16 10:30 12/12/16 08:13 Urine Color DK YELLOW Urine Appearance CLEAR Urine pH 5.5 Urine Specific [place] 1.019 Urine Protein NEG Urine Glucose (UA) NEG Urine Ketones TRACE Urine Occult Blood NEG Urine Nitrite NEG Urine Bilirubin NEG Urine Urobilinogen NEG Urine Leukocyte Esterase TRACE Urine WBC (Auto) 1-5 /hpf Urine RBC (Auto) 0-4 /hpf Urine Hyaline Casts (Auto) 1-5 /lpf Urine Epithelial Cells (Auto) 5-10 /lpf Urine Bacteria (Auto) NEG White Blood Count 15.01 K/uL Red Blood Count 4.81 M/uL Hemoglobin 15.6 g/dL Hematocrit 43.5 % Mean Corpuscular Volume 90.4 fL Mean Corpuscular Hemoglobin 32.4 pg Mean Corpuscular Hemoglobin Concent 35.9 g/dl Platelet Count 257 K/uL Mean Platelet Volume 8.2 fL Neutrophils (%) (Auto) 81.7 % Lymphocytes (%) (Auto) 8.8 % Monocytes (%) (Auto) 6.1 % Eosinophils (%) (Auto) 3.0 % Basophils (%) (Auto) 0.1 % Neutrophils # (Auto) 12.28 K/uL Lymphocytes # (Auto) 1.32 K/uL Monocytes # (Auto) 0.91 K/uL Eosinophils # (Auto) 0.45 K/uL Basophils # (Auto) 0.01 K/uL RDW Standard Deviation 46.0 fL RDW Coefficient of Variation 13.9 % Immature Granulocyte % (Auto) 0.3 % Immature Granulocyte # (Auto) 0.04 K/uL Sodium Level 139 mmol/L Potassium Level 3.7 mmol/L Chloride Level 106 mmol/L Carbon Dioxide Level 26 mmol/L Anion Gap 7.0 mmol/L Blood Urea Nitrogen 17 mg/dl Creatinine 0.92 mg/dl Est Creatinine Clear Calc Drug Dose 90.2 ml/min Estimated GFR () 101.5 Estimated GFR (Non- 87.6 BUN/Creatinine Ratio 18.5 Random Glucose 82 mg/dl Calcium Level 8.3 mg/dl Magnesium Level 1.9 mg/dl (Swapna Bautista, PA-C) Assessment and Plan Stercoral colitis - functional obstruction likely due to a fecal ball in the proximal sigmoid colon. - Cont Zosyn 3.375 mg IV every 6 hours. - Transitioned to clears, advance as tolerated - Can stop IVFs with NSS + Kcl at 125 ml/hr if pt tolerating a diet - Gen surg on board- appreciate recs: Dr. Britany Izquierdo saw in the ER yesterday - Will consult GI, PSH - pt had colonoscopy in Jun 2016 with no tumor or stricture seen per Dr. Del Rio. recommending EUS of the panc cyst as an outpatient. CAD/hypertension- - Restart amlodipine 10 mg by mouth daily, aspirin 81 mg by mouth daily, carvedilol 50 mg by mouth twice a day, and clonidine 0.4 mg by mouth twice a day. - Lopressor 5 mg IV every 4 hours, and Cardizem 10 mg IV every 4 hours when necessary systolic blood pressure greater than 150 after Lopressor IV and given. 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 BPH- - resume tamsulosin 0.4 mg QHS - pt has enlarged prostate on imaging. - Orders for bladder scan and straight cath prn - he has not required COPD- - continue Spiriva HandiHaler 1 puff QAM and Advair discus 500/50 one inhalation BID - Cont Xopenex/Atrovent nebulizer Q2H prn PTSD - resume doxepin now - will have IV Ativan 0.5 mg to 4 hours when necessary available. High-grade left common iliac artery stenosis- -noted incidentally on CT, we will order lower extremity arterial Dopplers for further investigation. - U/S completed 1. Atherosclerotic plaque with no sonographic evidence of high-grade stenosis or focal vessel cut off seen throughout the arteries of the right or left lower extremity 2. Ankle brachial indices as above. Ankle-brachial indices: Right brachial pressure measures 157. Pressures in the right posterior tibial artery measure 171 for an DELIA of 1.09 and pressures in the right dorsalis pedis artery measure 161 for an DELIA of 1.03. Left brachial pressure measures 156. Pressures in the left posterior tibial artery measure 165 for an DELIA of 1.02, and pressures in the left dorsalis pedis measure 140 for an DELIA of 0.89. - Vascular surgery consulted for stenosis Fat-containing left inguinal hernia--noted, no symptoms. DVT ppx: FULL CODE STATUS: FULL CODE Disposition: From [facility], planned release from [facility] in 1.5 years, possible discharge tomorrow. 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 Discussed with DENISE Bauitsta and agree with findings and plan as documented in the note. Any exceptions or clarifications are listed here: Pt feeling much better. Has had several BMs since admission. VSS, hypertensive RRR no mge Lungs with scattered rhonchi, diminished BS throughout, no wheezes or crackles Abd +BS, soft, NT ND Ext no mar[place],a 66 yo male with severe constipation and stercoral colitis, leukocytosis, now improving -recommend continuing daily Miralax upon discharge along with colace bid -EUS for pancreatic cyst as outpt -Vascular SUrgery opinion on left common iliac high grade stenosis appreciated. DELIA abnormal left dorsalis pedis -likely discharge tomorrow Documented By: Elizabeth Pepper (Elizabeth Pepper MD)
--- NOTE | 2016-12-12 11:39 | Surgery Progress Note ---
Surgery Progress Note Date of Service Dec 12, 2016. Subjective Post OP Day: HD # + feeling well abdominal pain improved + bowel movement and passing gas feeling better Objective Vital Signs: Date Time Temp Pulse Resp B/P (MAP) Pulse Ox O2 Delivery O2 Flow Rate FiO2 12/12/16 09:17 36.5 83 18 151/87 (108) 96 Room Air 12/12/16 08:45 Room Air 12/12/16 07:56 79 161/85 12/12/16 07:07 36.8 79 20 161/85 (110) 94 Room Air 12/12/16 04:19 75 16 174/90 (118) 12/12/16 04:14 73 17 165/87 (113) 12/12/16 04:10 73 16 179/95 (123) 12/12/16 04:00 Room Air 12/12/16 03:44 73 180/88 12/12/16 02:07 73 16 171/85 (113) 12/12/16 00:11 73 162/79 12/12/16 00:00 Room Air 12/11/16 23:29 36.7 72 18 172/94 (120) 90 Room Air 12/11/16 23:19 69 18 171/79 (109) 90 Room Air 12/11/16 23:14 75 162/76 (104) 90 Room Air 12/11/16 23:10 72 18 163/81 (108) 90 Room Air 12/11/16 20:20 36.9 73 18 156/68 (97) 94 Room Air 12/11/16 20:08 71 162/86 12/11/16 20:00 Room Air 12/11/16 17:10 74 168/80 (109) 12/11/16 16:00 Room Air 12/11/16 15:58 77 168/89 12/11/16 15:47 36.9 79 18 167/71 (103) 91 Room Air 12/11/16 15:26 78 16 92 Room Air 12/11/16 14:00 36.5 83 20 154/90 (111) 92 Room Air 12/11/16 13:02 84 20 172/101 96 Room Air 12/11/16 12:42 96 Room Air 12/11/16 12:09 85 20 170/101 96 Room Air General Appearance: WD/WN, no apparent distress Head: normocephalic, atraumatic Neck: trachea midline Respiratory/Chest: no respiratory distress, no accessory muscle use Abdomen: non tender, soft, + distended Laboratory Results: Results Past 24 Hours Test 12/12/16 08:13 Range/Units White Blood Count 15.01 4.8-10.8 K/uL Red Blood Count 4.81 4.7-6.1 M/uL Hemoglobin 15.6 14.0-18.0 g/dL Hematocrit 43.5 42-52 % Mean Corpuscular Volume 90.4 80-100 fL Mean Corpuscular Hemoglobin 32.4 25-34 pg Mean Corpuscular Hemoglobin Concent 35.9 32-36 g/dl Platelet Count 257 130-400 K/uL Mean Platelet Volume 8.2 7.4-10.4 fL Neutrophils (%) (Auto) 81.7 % Lymphocytes (%) (Auto) 8.8 % Monocytes (%) (Auto) 6.1 % Eosinophils (%) (Auto) 3.0 % Basophils (%) (Auto) 0.1 % Neutrophils # (Auto) 12.28 1.4-6.5 K/uL Lymphocytes # (Auto) 1.32 1.2-3.4 K/uL Monocytes # (Auto) 0.91 0.11-0.59 K/uL Eosinophils # (Auto) 0.45 0-0.5 K/uL Basophils # (Auto) 0.01 0-0.2 K/uL RDW Standard Deviation 46.0 36.4-46.3 fL RDW Coefficient of Variation 13.9 11.5-14.5 % Immature Granulocyte % (Auto) 0.3 % Immature Granulocyte # (Auto) 0.04 0.00-0.02 K/uL Sodium Level 139 136-145 mmol/L Potassium Level 3.7 3.5-5.1 mmol/L Chloride Level 106 98-107 mmol/L Carbon Dioxide Level 26 21-32 mmol/L Anion Gap 7.0 3-11 mmol/L Blood Urea Nitrogen 17 7-18 mg/dl Creatinine 0.92 0.60-1.40 mg/dl Est Creatinine Clear Calc Drug Dose 90.2 ml/min Estimated GFR () 101.5 Estimated GFR (Non- 87.6 BUN/Creatinine Ratio 18.5 10-20 Random Glucose 82 70-99 mg/dl Calcium Level 8.3 8.5-10.1 mg/dl Magnesium Level 1.9 1.8-2.4 mg/dl Assessment & Plan Severe Constipation with Cecal Dilatation and Stercoral Colitis of sigmoid colon - vitals stable - Leukocytosis improved to 15k today - abdomen soft, still distended, pain improved per patient - + bowel movement Plan: Advance diet to clears Recommend GI consultation , sigmoidoscopy vs colonoscopy? No surgical intervention is required at this time continue medical management continue IV antibiotics repeat am labs will follow along Dr. Cesar has seen and examined patient , agrees with above
--- NOTE | 2016-12-12 14:25 | Gastrointestinal Consultation ---
Gastrointestinal Consultation Date of Consultation: Dec 12, 2016 Attending Physician: Michele Consulting Physician: Quang Reason for Consultation: Constipation, panc cyst History of Present Illness Patient is a 66 year old male with 4 days of constipation and a panc cyst on CT. Past Medical/Surgical History Medical Problems: (1) Constipation Status: Acute (2) Dilatation of colon Status: Acute (3) Leukocytosis Status: Acute Family History Cancer Heart disease Hypertension Stroke Social History Smoking Status: Former Smoker Alcohol Use: none Housing Status: other Occupation Status: other Allergies Coded Allergies: No Known Allergies (Unverified , 12/11/16) Current Medications Home Meds and Scripts Medications Dose Route/Sig Max Daily Dose Days Date Category Theophylline ER (Theophylline) 400 Mg Tabcr 450 Mg PO BID 12/11/16 Reported Tamsulosin HCl 0.4 Mg Cap 0.4 Mg PO HS 12/11/16 Reported Prednisone 10 Mg Tab 10 Mg PO DIRECTED 12/11/16 Reported Fiber Laxative (Fiber) Ea 1 Tab PO DAILY 12/11/16 Reported [place] (Doxepin HCl) 25 Mg Cap 25 Mg PO QAM 12/11/16 Reported Doxepin (Doxepin Hcl) 100 Mg Cap 100 Mg PO QPM 12/11/16 Reported Doxepin (Doxepin Hcl) 75 Mg Cap 75 Mg PO QPM 12/11/16 Reported Docusate Sodium 100 Mg Tab 100 Mg PO BID 12/11/16 Reported Spiriva Handihaler (Tiotropium [place]) 18 Mcg/ Aerp 1 Puff INH QAM 30 06/29/13 Rx [[id number]] 14 PUFF/1 INHALER Inh 1 Puff INH BID 30 06/29/13 Rx Ventolin (Albuterol) Inh 2 Puffs INH QID PRN 5 06/22/13 Reported Nitrostat (Nitroglycerin) 0.4 Mg Sub 0.4 Mg UT PRN 06/22/13 Reported Catapres (Clonidine Hcl) 0.2 Mg Tab 0.4 Mg PO BID 06/22/13 Reported Coreg (Carvedilol) 25 Mg Tab 50 Mg PO BID 06/22/13 Reported Aspir-Low (Aspirin) 81 Mg Tab 81 Mg PO DAILY 06/22/13 Reported Norvasc (Amlodipine Besylate) 10 Mg Tab 10 Mg PO DAILY 06/22/13 Reported Physical Exam Date Time Temp Pulse Resp B/P (MAP) Pulse Ox O2 Delivery O2 Flow Rate FiO2 12/12/16 14:04 87 169/81 (110) 12/12/16 12:57 37.0 86 18 173/90 (117) 92 Room Air 12/12/16 12:30 Room Air 12/12/16 12:02 92 191/105 12/12/16 11:57 92 191/105 (133) 12/12/16 09:17 36.5 83 18 151/87 (108) 96 Room Air 12/12/16 08:45 Room Air 12/12/16 07:56 79 161/85 12/12/16 07:07 36.8 79 20 161/85 (110) 94 Room Air 12/12/16 04:19 75 16 174/90 (118) 12/12/16 04:14 73 17 165/87 (113) 12/12/16 04:10 73 16 179/95 (123) 12/12/16 04:00 Room Air 12/12/16 03:44 73 180/88 12/12/16 02:07 73 16 171/85 (113) 12/12/16 00:11 73 162/79 12/12/16 00:00 Room Air 12/11/16 23:29 36.7 72 18 172/94 (120) 90 Room Air 12/11/16 23:19 69 18 171/79 (109) 90 Room Air 12/11/16 23:14 75 162/76 (104) 90 Room Air 12/11/16 23:10 72 18 163/81 (108) 90 Room Air 12/11/16 20:20 36.9 73 18 156/68 (97) 94 Room Air 12/11/16 20:08 71 162/86 12/11/16 20:00 Room Air 12/11/16 17:10 74 168/80 (109) 12/11/16 16:00 Room Air 12/11/16 15:58 77 168/89 12/11/16 15:47 36.9 79 18 167/71 (103) 91 Room Air 12/11/16 15:26 78 16 92 Room Air General Appearance: no apparent distress Eyes: normal inspection ENT: normal ENT inspection Abdomen: normal bowel sounds, non tender, + pertinent finding (Right inguinal scar) Skin: normal color Laboratory Results Last 24 Hours Test 12/12/16 08:13 White Blood Count 15.01 K/uL Red Blood Count 4.81 M/uL Hemoglobin 15.6 g/dL Hematocrit 43.5 % Mean Corpuscular Volume 90.4 fL Mean Corpuscular Hemoglobin 32.4 pg Mean Corpuscular Hemoglobin Concent 35.9 g/dl Platelet Count 257 K/uL Mean Platelet Volume 8.2 fL Neutrophils (%) (Auto) 81.7 % Lymphocytes (%) (Auto) 8.8 % Monocytes (%) (Auto) 6.1 % Eosinophils (%) (Auto) 3.0 % Basophils (%) (Auto) 0.1 % Neutrophils # (Auto) 12.28 K/uL Lymphocytes # (Auto) 1.32 K/uL Monocytes # (Auto) 0.91 K/uL Eosinophils # (Auto) 0.45 K/uL Basophils # (Auto) 0.01 K/uL RDW Standard Deviation 46.0 fL RDW Coefficient of Variation 13.9 % Immature Granulocyte % (Auto) 0.3 % Immature Granulocyte # (Auto) 0.04 K/uL Sodium Level 139 mmol/L Potassium Level 3.7 mmol/L Chloride Level 106 mmol/L Carbon Dioxide Level 26 mmol/L Anion Gap 7.0 mmol/L Blood Urea Nitrogen 17 mg/dl Creatinine 0.92 mg/dl Est Creatinine Clear Calc Drug Dose 90.2 ml/min Estimated GFR () 101.5 Estimated GFR (Non- 87.6 BUN/Creatinine Ratio 18.5 Random Glucose 82 mg/dl Calcium Level 8.3 mg/dl Magnesium Level 1.9 mg/dl Impression Patient is a 66 year old male with multiple BM since admission. Currently on Miralax. He had a colonoscopy 6 months ago at an outside facility with no tumor or stricture seen. He will need an EUS of the panc cyst as an outpatient. Plan Cont Miralax. EUS as an outpt
[2016-12-12] MEDS ORDERED: THEO1TAB14 PO (15:51)
[2016-12-12] MEDS ORDERED: NURSING VERBAL MED ORDER ONE ×2 (16:00→17:15)
[2016-12-12] MEDS ORDERED: METOPROLOL TARTRATE 1 MG/ML VIAL IV PRN (16:00)
[2016-12-12] MEDS: CARVEDILOL 25 MG TAB PO SCH (20:03)
[2016-12-12] MEDS: CLONIDINE HCL 0.1 MG TAB PO SCH (20:04)
[2016-12-12] MEDS: THEOPHYLLINE 300MG EXTENDED REL TAB PO SCH (20:08)
[2016-12-12] MEDS ORDERED: TAMSULOSIN HCL 0.4 MG CAP PO SCH (21:00)
[2016-12-12] MEDS ORDERED: DOXEPIN HCL 75 MG CAP PO SCH (21:00)
[2016-12-12] MEDS ORDERED: DOXEPIN HCL 50 MG CAP PO SCH (21:00)
[2016-12-13] MEDS: NITROGLYCERIN OINT 2% 1GM PACKET EXT SCH ×3 (01:59→13:40)
[2016-12-13] MEDS: PIPERACILL/TAZOBAC IV 3.375 GM in DEXTROSE 5% 100ML 100 ML IV SCH ×3 (02:02→17:56)
[2016-12-13 04:00] VITALS: BP 146/73; PULSE 75; TEMP 36.9; O2SAT 93
[2016-12-13] MEDS: FAMOTIDINE IV INJ 20 MG in DEXTROSE 5% 100ML 100 ML IV SCH ×2 (06:23→17:56)
[2016-12-13 07:58] LABS: BASO % 0.1 %; BASO ABS # 0.01 K/uL (0-0.2); COMPLETE YES; EOS % 4.1 %; HEMATOCRIT 39.6 % (42-52); IG% 0.2 %; LYMPH % 12.8 %; LYMPH ABS # 1.09 K/uL (1.2-3.4); MEAN CORPUSCULAR HEMOGLOBIN 32.5 pg (25-34); MEAN CORPUSCULAR HGB CONC 36.1 g/dl (32-36); MEAN PLATELET VOLUME 8.3 fL (7.4-10.4); MONO % 7.8 %; PLATELET COUNT 217 K/uL (130-400); WHITE BLOOD COUNT 8.49 K/uL (4.8-10.8)
[2016-12-13 08:05] VITALS: BP 150/81; PULSE 71; TEMP 36.8; O2SAT 95
[2016-12-13] MEDS: FLUTICASONE/SALMETEROL (ADVAIR) 500/50 INH 14 PUFF INH SCH (08:11)
[2016-12-13] MEDS: TIOTROPIUM BROMIDE 5 PUFF/90 MCG INH INH SCH (08:11)
[2016-12-13] MEDS: CLONIDINE HCL 0.1 MG TAB PO SCH (08:12)
[2016-12-13] MEDS: THEOPHYLLINE 300MG EXTENDED REL TAB PO SCH (08:12)
[2016-12-13] MEDS: MINERAL OIL ENEMA 133 ML BTL PR SCH (08:13)
[2016-12-13] MEDS: POLYETHYLENE (MIRALAX) 17 GM PACK PO SCH (08:13)
[2016-12-13] MEDS: CARVEDILOL 25 MG TAB PO SCH (08:14)
[2016-12-13 08:17] LABS: BUN/CREATININE RATIO 12.7 (10-20); CALCIUM 8.2 mg/dl (8.5-10.1); POTASSIUM 3.2 mmol/L (3.5-5.1)
[2016-12-13] MEDS ORDERED: ASPIRIN 81 MG ECTAB PO SCH (09:00)
[2016-12-13] MEDS ORDERED: AMLODIPINE BESYLATE 5 MG TAB PO SCH (09:00)
[2016-12-13] MEDS ORDERED: DOXEPIN HCL 25 MG CAP PO SCH (09:00)
--- NOTE | 2016-12-13 09:54 | Surgery Progress Note ---
Surgery Progress Note Date of Service Dec 13, 2016. Subjective Post OP Day: HD # 2 + feeling well, + bowel movement, + flatus, + pain controlled, + diet (soft diet ), No complaints, No nausea, No vomiting Objective Vital Signs: Date Time Temp Pulse Resp B/P (MAP) Pulse Ox O2 Delivery O2 Flow Rate FiO2 12/13/16 08:05 36.8 71 18 150/81 (104) 95 Room Air 12/13/16 04:00 36.9 75 16 146/73 (97) 93 Room Air 12/13/16 04:00 Room Air 12/13/16 00:00 Room Air 12/12/16 23:47 36.6 89 18 122/72 (89) 90 Room Air 12/12/16 21:51 123/70 (87) 12/12/16 20:07 36.8 80 20 169/79 (109) 92 Room Air 12/12/16 20:00 Room Air 12/12/16 16:56 160/82 (108) 12/12/16 16:07 77 175/94 12/12/16 16:00 Room Air 12/12/16 15:41 36.9 77 20 175/94 (121) 94 Room Air 12/12/16 14:04 87 169/81 (110) 12/12/16 12:57 37.0 86 18 173/90 (117) 92 Room Air 12/12/16 12:30 Room Air 12/12/16 12:02 92 191/105 12/12/16 11:57 92 191/105 (133) General Appearance: WD/WN, no apparent distress Head: normocephalic, atraumatic Neck: trachea midline Respiratory/Chest: lungs clear, normal breath sounds, no respiratory distress, no accessory muscle use, + crackles Cardiovascular: regular rate, rhythm Abdomen: normal bowel sounds, non tender (no rebound, rigidity, guarding, or peritonitis), soft, + distended (mild distention) Laboratory Results: Results Past 24 Hours Test 12/13/16 07:35 Range/Units White Blood Count 8.49 4.8-10.8 K/uL Red Blood Count 4.40 4.7-6.1 M/uL Hemoglobin 14.3 14.0-18.0 g/dL Hematocrit 39.6 42-52 % Mean Corpuscular Volume 90.0 80-100 fL Mean Corpuscular Hemoglobin 32.5 25-34 pg Mean Corpuscular Hemoglobin Concent 36.1 32-36 g/dl Platelet Count 217 130-400 K/uL Mean Platelet Volume 8.3 7.4-10.4 fL Neutrophils (%) (Auto) 75.0 % Lymphocytes (%) (Auto) 12.8 % Monocytes (%) (Auto) 7.8 % Eosinophils (%) (Auto) 4.1 % Basophils (%) (Auto) 0.1 % Neutrophils # (Auto) 6.36 1.4-6.5 K/uL Lymphocytes # (Auto) 1.09 1.2-3.4 K/uL Monocytes # (Auto) 0.66 0.11-0.59 K/uL Eosinophils # (Auto) 0.35 0-0.5 K/uL Basophils # (Auto) 0.01 0-0.2 K/uL RDW Standard Deviation 45.6 36.4-46.3 fL RDW Coefficient of Variation 13.9 11.5-14.5 % Immature Granulocyte % (Auto) 0.2 % Immature Granulocyte # (Auto) 0.02 0.00-0.02 K/uL Sodium Level 142 136-145 mmol/L Potassium Level 3.2 3.5-5.1 mmol/L Chloride Level 108 98-107 mmol/L Carbon Dioxide Level 27 21-32 mmol/L Anion Gap 7.0 3-11 mmol/L Blood Urea Nitrogen 13 7-18 mg/dl Creatinine 1.00 0.60-1.40 mg/dl Est Creatinine Clear Calc Drug Dose 80.4 ml/min Estimated GFR () 91.8 Estimated GFR (Non- 79.2 BUN/Creatinine Ratio 12.7 10-20 Random Glucose 98 70-99 mg/dl Calcium Level 8.2 8.5-10.1 mg/dl Magnesium Level 2.0 1.8-2.4 mg/dl Assessment & Plan Severe Constipation with Cecal Dilatation and Stercoral Colitis of sigmoid colon - vitals stable - Leukocytosis resolved - abdomen soft, still distended, pain resolved per patient - + bowel movement and flatus - tolerating soft diet Plan: advance diet as tolerated Gi consult- recommend Miralax and EUS as an outpatient for pancreatic pseudocyst evaluation No surgical intervention is required at this time Continue bowel regimen continue medical management may switch to oral antibiotics since tolerating PO intake our services signing off, please call with any questions
[2016-12-13] MEDS: POTASSIUM CHLORIDE 10 MEQ TABCR PO SCH ×2 (09:56→11:21)
[2016-12-13] MEDS ORDERED: POLY335019 PO (10:06)
[2016-12-13] MEDS ORDERED: AMOX875T PO (10:06)
--- NOTE | 2016-12-13 10:14 | Discharge Instructions ---
Discharge Instructions Date of Service Dec 13, 2016. Admission Reason for Admission: Colitis,Pancreatic Lesion Discharge Discharge Diagnosis / Problem: Stercoral colitis Discharge Goals Goal(s): Decrease discomfort, Improve function, Increase independence, Improve disease control, Diagnostic testing Activity Recommendations Activity Limitations: resume your previous activity Lifting Limitations: none Shower/Bathe: no limitations . Instructions / Follow-Up Instructions / Follow-Up You were admitted to [facility] with abdominal pain and constipation and diagnosed with Stercoral colitis. During your stay here you were treated with fleets enema and an aggressive bowel regimen to move your bowels which was quite successful Imaging studies which were completed include CT of the abdomen and pelvis, and were abnormal: A mucinous cyst was found incidentally on the pancreatic head - This needs to be evaluated as an outpatient with an Endoscopic Ultrasound ( EUS). - [facility] should schedule an outpatient appointment with Gastroenterology with Dr. Del Rio within 2-4 weeks for evaluation. - The prostate was enlarged on CT as well - this should be followed up with PCP/[facility] for possible evaluation. You were also found to have narrowing of one of the arteries that supplies blood to your left lower extremity. This is not causing you any symptoms. You were seen by the Vascular Surgeon and no treatment is indicated at this time. Medications: Continue taking miralax daily to help with constipation Follow up: Please follow up with GI as an outpatient Follow up with PCP within [address] [facility] Diet Patient's current hospital diet: Low Fiber Diet Discharge Diet Recommended Diet: AHA Diet (Heart Healthy) Procedures Procedures Performed: CT abdomen/pelvis Arterial ultrasound of lower extremities Pending Studies Studies pending at discharge: no Medical Emergencies . Who to Call and When: Medical Emergencies: If at any time you feel your situation is an emergency, please call 911 immediately. . Non-Emergent Contact Non-Emergency issues call your: Primary Care Provider Call Non-Emergent contact if: you have a fever, temperature is above 100.5, your pain is not controlled, your pain is worsening, your pain is unusual for you, your pain is concerning you, you have any medication questions Chest pain, shortness of breath, abdominal pain, constipation, nausea, vomiting , diarrhea, lightheadedness, dizziness or if you have other concerns with your health. . Past History Medical & Surgical History: (1) stercoral colitis (2) Colitis (3) Pancreatic lesion (4) Constipation (5) COPD exacerbation (6) History of hypertension (7) History of BPH (8) History of hepatitis C (9) History of COPD (10) History of asthma . "Provider Documentation" section prepared by Cassandra Bautista. . VTE Core Measure Inpt VTE Proph given/why not?: Tay Moise, [facility]
[2016-12-13 11:26] VITALS: BP 114/71; PULSE 63; TEMP 36.6; O2SAT 90
--- NOTE | 2016-12-13 14:48 | Discharge Summary ---
Discharge Summary Date of Service Dec 13, 2016. 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 Constipation. Abdominal distention. COMPARISON STUDY: Barium enema dated 03/28/2016. TECHNIQUE: Following the IV administration of 116 cc of Optiray 320, CT scan of the abdomen and pelvis is performed from the lung bases to the proximal femora. Images are reviewed in the axial, sagittal, and coronal planes. IV contrast was administered without complication. Automated dose control exposure was utilized. CT DOSE: 335.69 mGy.cm FINDINGS: Lung bases: The heart is normal in size and there is trace pericardial fluid. Advanced emphysema is present at the lung bases. Foci of scarring versus atelectasis are seen at the right lung base. No airspace consolidation is seen typical for pneumonia and there is no pleural effusion. There is a tiny hiatal hernia. Liver: The contrast-enhanced liver is normal in size, contour, and attenuation. There is no intrahepatic biliary ductal dilatation. The hepatic veins and portal veins are patent. Gallbladder: Unremarkable. Spleen: Normal in size and attenuation. Pancreas: There is moderate glandular atrophy of the pancreas. There are numerous parenchymal calcifications consistent with chronic pancreatitis. There is a 2.0 x 1.8 cm cystic lesion seen in the pancreatic head on axial image #132. Adrenal glands: Unremarkable. Kidneys: The contrast enhanced kidneys are atrophic and without hydronephrosis. The kidneys enhance symmetrically. Renal cysts measure up to 2.9 cm. Additional subcentimeter cortical hypodensities also likely represent cysts but are too small for definitive characterization. Abdominal vasculature: The abdominal aorta is normal in course and caliber noting advanced atherosclerotic calcification. There is high-grade stenosis of the left common iliac artery. Bowel: There is severe constipation. There is wall thickening and pericolonic inflammation seen involving the descending colon and proximal sigmoid consistent with stercoral colitis. The cecum is located in the left lower quadrant and measures up to 9.5 cm in diameter. There is a focal change in caliber of the colon in the proximal sigmoid region on axial image #338. The distal sigmoid is decompressed. The small bowel loops are normal in caliber. The appendix is not identified. Peritoneum: There is no intraperitoneal free air. There is a small amount of free fluid in the left paracolic gutter and pelvis. Lymphadenopathy: None. Pelvic viscera: The prostate gland is enlarged and heterogeneous. This measures up to 5.2 cm in transverse diameter and there is median lobe hypertrophy. The bladder is distended and grossly unremarkable. There is a fat-containing left inguinal hernia. Skeletal structures: The skeletal structures are osteopenic. Mild to moderate lumbosacral spondylosis is observed. A large disc herniation is suggested at L3-L4. No lytic or blastic lesions are seen. IMPRESSION: 1. There is severe constipation, and the colon is markedly distended with stool. There is mild wall thickening and pericolonic inflammation seen involving the descending colon and sigmoid consistent with stercoral colitis. 2. The cecum is located in the left lower quadrant and measures up to 9.5 cm diameter. 3. There is a transition point identified in the proximal sigmoid colon, with the remainder of the rectosigmoid colon decompressed. Although no lesion is identified, a stricture or obstructing mass lesion would be impossible to exclude. Follow-up with colonoscopy when the patient is clinically able is recommended. 4. The small bowel loops are normal in caliber. 5. Advanced emphysema. 6. There is evidence of chronic pancreatitis. 7. There is a 2.0 cm lobulated water attenuation/cystic lesion in the pancreatic head. The appearance is most typical for a large IPMN or mucinous cystic neoplasm. Nonemergent GI follow-up is recommended. Endoscopic ultrasound could be considered for further assessment. A pancreatic protocol CT or MRI is unlikely to provide further information in this case. 8. Advanced atherosclerotic disease with high-grade stenosis of the left common iliac artery. 9. Prostatomegaly. 10. There is a small volume of free fluid in the left paracolic gutter and pelvis, likely on a reactive basis. 11. A large disc herniation is suggested at L3-L4. 12. Additional findings as above. Electronically signed by: Johann Peña M.D. 12/11/2016 10:43 AM Dictated Date/Time: 12/11/2016 10:28 AM The status of this report is Signed. ULTRASOUND BILATERAL LOWER EXTREMITY ARTERIAL; ANKLE-BRACHIAL INDICES CLINICAL HISTORY: Left iliac artery stenosis seen by CT. COMPARISON STUDY: Abdominal CT performed the same day 12/11/2016. TECHNIQUE: Real-time, grayscale, and color Doppler sonography of the arteries of the right and left lower extremity is performed from the inguinal crease to the foot. Ankle-brachial indices are calculated. FINDINGS: Ankle-brachial indices: Right brachial pressure measures 157. Pressures in the right posterior tibial artery measure 171 for an DELIA of 1.09 and pressures in the right dorsalis pedis artery measure 161 for an DELIA of 1.03. Left brachial pressure measures 156. Pressures in the left posterior tibial artery measure 165 for an DELIA of 1.02, and pressures in the left dorsalis pedis measure 140 for an DELIA of 0.89. Right lower extremity: There is atherosclerotic calcification and plaque seen throughout the arteries of the right lower extremity. There are triphasic arterial waveforms in the right common femoral artery with velocities measuring 149 cm/s. The right profundus femoris artery is patent with velocities measuring up to 80 cm/s. There are biphasic to triphasic waveforms seen in the superficial femoral artery with velocities measuring up to 138 cm/s. There are biphasic arterial waveforms in the popliteal artery with velocities measuring up to 74 cm/s. There is three-vessel runoff to the foot. Velocities within the calf vessels measure up to 80 cm/s. The dorsalis pedis artery is patent with velocities measuring up to 55 cm/s. Left lower extremity: There is atherosclerotic calcification and plaque seen throughout the arteries of the left lower extremity. There are triphasic arterial waveforms in the left common femoral artery with velocities measuring 153 cm/s. The left profundus femoris artery is patent with velocities measuring up to 138 cm/s. There are biphasic to triphasic waveforms seen in the superficial femoral artery with velocities measuring up to 158 cm/s. There are biphasic arterial waveforms in the popliteal artery with velocities measuring up to 58 cm/s. There is three-vessel runoff to the foot. Velocities within the calf vessels measure up to 75 cm/s. The dorsalis pedis artery is patent with velocities measuring up to 66 cm/s. IMPRESSION: 1. Atherosclerotic plaque with no sonographic evidence of high-grade stenosis or focal vessel cut off seen throughout the arteries of the right or left lower extremity 2. Ankle brachial indices as above. Electronically signed by: Johann Peña M.D. 12/11/2016 10:20 PM Dictated Date/Time: 12/11/2016 10:15 PM The status of this report is Signed. Consultations: Vascular Gastroenterology (Swapna Bautista PA-C) Problems/Secondary Diagnoses: Severe constipation (Elizabeth Pepper MD) Medication Reconciliation New Medications: Amoxicillin & Pot Clavulanate (Augmentin 875-125 mg) 1 Tab Tab 1 TAB PO BID for 4 Days, #8 TAB Polyethylene Glycol 3350 (Miralax) 1 Pow Pow 17 GM PO DAILY for 30 Days, #30 DOSE Continued Medications: Albuterol (Ventolin) Inh 2 PUFFS INH QID PRN for Wheezing for 5 Days, INHALER Amlodipine (Norvasc) 10 Mg Tab 10 MG PO DAILY, TAB Aspirin (Aspir-Low) 81 Mg Tab 81 MG PO DAILY Carvedilol (Coreg) 25 Mg Tab 50 MG PO BID, TAB Clonidine Hcl (Catapres) 0.2 Mg Tab 0.4 MG PO BID, TAB Docusate Sodium (Docusate Sodium) 100 Mg Tab 100 MG PO BID Doxepin (Sinequan) 25 Mg Cap 25 MG PO QAM, CAP Doxepin Hcl (Doxepin) 75 Mg Cap 75 MG PO QPM, CAP Doxepin Hcl (Doxepin) 100 Mg Cap 100 MG PO QPM, CAP Nitroglycerin (Nitrostat) 0.4 Mg Sub 0.4 MG UT PRN, BTL Tamsulosin HCl (Tamsulosin HCl) 0.4 Mg Cap 0.4 MG PO HS Theophylline (Theophylline ER) 400 Mg Tabcr 450 MG PO BID Tiotropium [place] (Spiriva Handihaler) 18 Mcg/ Aerp 1 PUFF INH QAM for 30 Days [[id number]] () 14 PUFF/1 INHALER INH 1 PUFF INH BID for 30 Days, INH Discontinued Medications: Fiber Laxative (Fiber Laxative) Ea 1 TAB PO DAILY Prednisone Tab (Prednisone) 10 Mg Tab 10 MG PO DIRECTED, TAB Discharge Exam The patient was seen and examined this morning. Patient reports feeling well. He has had multiple bowel movements since yesterday morning, even more than 5. He reports his abdominal pain is mostly resolved, but still has some residual soreness. He denies any distention, nausea, vomiting, acute abdominal pain. He has been tolerating a low fiber diet without any difficulty. The patient denies any other acute complaints including chest pain, shortness of breath, fever, chills, sweats, lightheadedness, dizziness. ROS: Constitutional: No fever, sweats or chills Eyes: No diplopia, no worsening or blurred vision ENT: normal hearing, no trouble swallowing Respiratory: No cough, sputum, dyspnea at rest or on exertion Cardiovascular: No chest pain, tightness or palpitations Abdomen: No pain, nausea, vomiting, diarrhea or constipation Musculoskeletal: No joint pain, calf pain, swelling Neurologic: No weakness, numbness/tingling, or balance problems Psychiatric: No anxiety or depression Skin: No rash or itch PE: General: awake, alert, no apparent distress Head: Normocephalic, atraumatic ENT: PERRL, EOMI, no pharyngeal exudate, mucous membranes moist Chest: Clear to auscultation, on room air, no adventitious breath sounds Cardiac: Regular rate and rhythm, no murmur, no JVD, normal peripheral pulses, good capillary refill Abdominal: NABS x 4 quadrants, soft, nontender to palpation, no rebound, guarding or tenderness Extremities: Normal inspection, no peripheral edema or erythema, calfs nontender to palpation Psych: Normal mood and affect Neuro: AAO x 3, strength intact bilaterally and related 5/5, no motor deficits, speech is clear, no peripheral sensory deficits (Swapna Bautista PA-C) Hospital Course H&P per Rishi Mark M.D. History of Present Illness Source: patient, hospital records The patient is a 66-year-old male inmate of [facility] who presents to the emergency department after syncopal episode while on the medication line. He reports has not had a bowel movement in about 4-5 days, and began experiencing significant pain about 2 days ago. He says his syncopal episode occurred when his abdominal pain worsened suddenly. He has had issues with constipation past but nothing to this extent. His abdominal pain is accompanied by bloating and nausea but he has not vomited. He does not have any history of abdominal surgeries. Physical Exam Vital Signs Date Time Temp Pulse Resp B/P (MAP) Pulse Ox O2 Delivery O2 Flow Rate FiO2 12/11/16 12:09 85 20 170/101 96 Room Air 12/11/16 10:34 80 16 145/79 98 Room Air 12/11/16 09:06 36.9 85 20 142/93 95 Room Air The patient is awake, alert and oriented 3, normocephalic and atraumatic, lying in bed and in no acute distress. HEENT--PERRL, EOMI, mucous membranes and oropharynx dry. Neck--supple, no JVD or bruits, thyroid normal, trachea midline, no adenopathy. Heart--normal S1 and S2, no extra beats, no murmurs, rubs or gallops. Lungs--few crackles at the bases bilaterally, no respiratory distress, no accessory muscle use. Abdomen--decreased bowel sounds, firm and distended, generalized tenderness. Extremities--no cyanosis, clubbing or edema. There are good distal pulses b/l. Dermatologic--normal skin turgor, normal color, warm and dry, no abnormal lymph nodes, no rash. Neurologic--cranial nerves II through XII grossly intact, motor and sensory examination normal. Rheumatologic--normal range of motion of joints. Psychiatric--normal affect. Hospital course: Stercoral colitis - functional obstruction due to a fecal ball in the proximal sigmoid colon. - Pt was on Zosyn 3.375 mg IV every 6 hours while admitted x 3 days, he will continue Augmentin 875 mg twice a day 4 more days to complete a seven-day course. - Transitioned to low fiber diet, transitioned back to regular upon discharge. - IVF's were stopped as the patient was tolerating an oral intake. - Gen surg on board- appreciate recs: Dr. Britany Izquierdo saw in the ER yesterday - Gi consulted - pt had colonoscopy in Jun 2016 with no tumor or stricture seen per Dr. Del Rio. - Appreciate recommendations recommending EUS of the panc cyst as an outpatient- discharge instructions have information regarding the need to see GI within 1 month after discharge for biopsy of the pancreatic cyst. CAD/hypertension- - Restart amlodipine 10 mg by mouth daily, aspirin 81 mg by mouth daily, carvedilol 50 mg by mouth twice a day, and clonidine 0.4 mg by mouth twice a day. - Lopressor 5 mg IV every 4 hours, and Cardizem 10 mg IV every 4 hours when necessary systolic blood pressure greater than 150 after Lopressor IV and given. 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 BPH- - resume tamsulosin 0.4 mg QHS - pt has enlarged prostate on imaging. - Orders for bladder scan and straight cath prn - he has not required COPD- - continue Spiriva HandiHaler 1 puff QAM and Advair discus 500/50 one inhalation BID - Cont Xopenex/Atrovent nebulizer Q2H prn PTSD - resume doxepin now - will have IV Ativan 0.5 mg to 4 hours when necessary available. High-grade left common iliac artery stenosis- -noted incidentally on CT, we will order lower extremity arterial Dopplers for further investigation. - U/S completed 1. Atherosclerotic plaque with no sonographic evidence of high-grade stenosis or focal vessel cut off seen throughout the arteries of the right or left lower extremity 2. Ankle brachial indices as above. Ankle-brachial indices: Right brachial pressure measures 157. Pressures in the right posterior tibial artery measure 171 for an DELIA of 1.09 and pressures in the right dorsalis pedis artery measure 161 for an DELIA of 1.03. Left brachial pressure measures 156. Pressures in the left posterior tibial artery measure 165 for an DELIA of 1.02, and pressures in the left dorsalis pedis measure 140 for an DELIA of 0.89. - Vascular surgery consulted for stenosis - no acute intervention required Fat-containing left inguinal hernia--noted, no symptoms. DVT ppx: FULL CODE STATUS: FULL CODE Disposition: From [facility], planned release from [facility] in 1.5 years, discharge back to [facility] today Total Time Spent: Greater than 30 minutes This includes examination of the patient, discharge planning, medication reconciliation, and communication with other providers. (Swapna Bautista PA-C) Discharge Instructions Please refer to the electronic Patient Visit Report (Discharge Instructions) for additional information. (Swapna Bautista PA-C) Follow-Up Follow-up with PCP within 24-48 hours [facility] Follow-up with GI within 1 month for outpatient EUS/ERCP for biopsy of pancreatic cyst. 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 Discussed with DENISE Bautista and agree with findings and plan as documented in the note. Any exceptions or clarifications are listed here: Pt has no complaints, no abd pain , is moving bowels multiple times since admission. VSS, hypertensive RRR no mge Lungs with diminished BS throughout, no wcr Abd +BS, soft, NT ND Ext no edema 66 yo male with severe constipation and stercoral colitis, leukocytosis, now improving -recommend continuing daily Miralax upon discharge along with colace bid -EUS for pancreatic cyst as outpt -Vascular SUrgery opinion on left common iliac high grade stenosis appreciated. DELIA abnormal left dorsalis pedis--> asymptomatic so no Surgery needed at this time -discharge to home Documented By: Elizabeth Pepper (Elizabeth Pepper MD)
[2016-12-13 15:17] VITALS: BP 130/73; PULSE 64; TEMP 36.8; O2SAT 94
--- NOTE | 2016-12-13 16:15 | Surgery Consultation ---
Consultation Date of Service Dec 13, 2016. 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 Pt states no prior knowledge. Denies hip or calf claudication, rest pain , ulcerations. Admits ZUNIGA d/t COPD, which limits his ambulation. Denies CHISHOLM, fever, chills, chest pain, abd pain, N/V, other complaints. Arterial US demonstrates triphasic femoral art flow and good runoff. Vitals Vital Signs Past 12 Hours Date Time Temp Pulse Resp B/P (MAP) Pulse Ox O2 Delivery O2 Flow Rate FiO2 12/13/16 15:36 Room Air 12/13/16 15:17 36.8 64 18 130/73 (92) 94 Room Air 12/13/16 12:00 Room Air 12/13/16 11:26 36.6 63 15 114/71 (85) 90 Room Air 12/13/16 08:05 36.8 71 18 150/81 (104) 95 Room Air 12/13/16 08:00 Room Air Allergies Coded Allergies: No Known Allergies (Unverified , 12/11/16) Home Medications Scheduled Amlodipine (Norvasc), 10 MG PO DAILY Amoxicillin & Pot Clavulanate (Augmentin 875-125 mg), 1 TAB PO BID Aspirin (Aspir-Low), 81 MG PO DAILY Carvedilol (Coreg), 50 MG PO BID Clonidine Hcl (Catapres), 0.4 MG PO BID Docusate Sodium (Docusate Sodium), 100 MG PO BID Doxepin (Sinequan), 25 MG PO QAM Doxepin Hcl (Doxepin), 75 MG PO QPM Doxepin Hcl (Doxepin), 100 MG PO QPM Fiber Laxative (Fiber Laxative), 1 TAB PO DAILY Nitroglycerin (Nitrostat), 0.4 MG UT PRN Polyethylene Glycol 3350 (Miralax), 17 GM PO DAILY Prednisone Tab (Prednisone), 10 MG PO DIRECTED Tamsulosin HCl (Tamsulosin HCl), 0.4 MG PO HS Theophylline (Theophylline ER), 450 MG PO BID Tiotropium [place] (Spiriva Handihaler), 1 PUFF INH QAM [[id number]], 1 PUFF INH BID Scheduled PRN Albuterol (Ventolin), 2 PUFFS INH QID PRN for Wheezing Problem List Medical Problems: (1) Colitis (2) Coronary artery disease (3) History of anxiety (4) History of asthma (5) History of BPH (6) History of colon polyps (7) History of COPD (8) History of depression (9) History of hepatitis C (10) History of hypertension (11) History of PTSD (12) Pancreatic lesion (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 (14) Tobacco use Surgical Problems: (1) Status post arthroscopic knee surgery (2) Status post hemorrhoidectomy (3) Status post hernia repair Surgical / Medical History Hx Cardiac Surgery: No Hx Abdominal Surgery: Yes (HERNIA) Hx Cancer Surgery: No Hx Thoracic Surgery: Yes (COLLAPSED RT LUNG) Hx Orthopedic: Yes (BOTH KNEES ARTHROSCOPY) Hx Urinary Tract Surgery: No HX Other Surgery: No Past Medical/Surgical History: COPD, Hypertension Family History Cancer Heart disease Hypertension Stroke Social History Smoking Status: Former Smoker Hx Tobacco Use In Past Year?: Yes (QUIT FEB 2012) Hx Alcohol Use - Type & Amnt: No Hx Substance Use -Type & Amnt: No Review of Systems Constitutional: No chills, No fever, No malaise Skin: No change in color Eyes: No visual changes ENMT: No sore throat Respiratory: + cough, + ZUNIGA, No hemoptysis, No orthopnea, No short of breath Cardiovascular: No chest pain, No palpitations, No syncope, No edema, No intermittent claudication Gastrointestinal: No abdominal pain, No nausea, No vomiting Neurologic: No dizziness, No headache, No lethargy, No numbness, No tingling Physical Exam Constitutional: General Apperance: well-nourished, well-developed Level of Distress: NAD, chronically ill Psychiatric: Mental Status: active & alert, normal mood, normal affect Orientation: oriented except where noted, to time, to place, to person Memory: recent memory normal, remote memory normal Head: normocephalic, atraumatic Eyes: EOM: EOMI ENMT: normal ENT inspection, hearing grossly normal Neck: supple, trachea midline Lungs: Respiratory effort: no dyspnea Auscultation: no rhonchi, decreased breath sounds, expiratory wheezing Cardiovascular: Apical Impulse: not displaced Heart Auscultation: RRR, no murmurs, no rubs, no gallops Peripheral Pulses: Pulses: full and equal, in all extremities except if noted Bruits: none appreciated Carotid Pulse: normal on the left, normal on the right Brachial Pulses: normal on the left, normal on the right Radial Pulse: normal on the left, normal on the right Femoral Pulse: normal on the right, decreased on the left Posterior Tibialis Pulse: pertinent finding (+2 LLE, +2 RLE) Dorsalis Pedis Pulse: pertinent finding (+2LLE, +1 RLE) Abdomen: Bowel Sounds: normal Inspection & Palpation: soft, non-distended, no tenderness, guarding & rebound Musculoskeletal: normal strength (5/5 throughout), normal tone Extremities: Upper Right: no cyanosis, no edema, no varicosities Upper Left: no cyanosis, no edema, no varicosities Lower Right: no cyanosis, no edema, no varicosities, pertinent finding (of note, significant hair growth to BLE feet/toes present) Lower Left: no cyanosis, no edema, no varicosities Neurologic: Cranial Nerves: grossly intact Sensation: grossly intact Assessment and Plan ASSESSMENT and PLAN: L GINA stenosis, asymptomatic Pt asymptomatic from L GINA stenosis. No vascular surgical intervention warranted at this time. Pt advised on sx of claudication, ulcerations, or rest pain. Will be happy to see pt in f/u if any of these sx develop.
[2016-12-13 18:01] VITALS: BP 130/73; PULSE 64; TEMP 36.8; O2SAT 94
[2016-12-20] MEDS ORDERED: ADVIN50/60 INH (15:37)
[2016-12-20] MEDS ORDERED: SPRIN/30 INH (15:43)
[2016-12-20] MEDS ORDERED: CALC625T PO (15:43)
[2016-12-20] MEDS ORDERED: POLY335019 PO (15:43)
[2016-12-20] MEDS ORDERED: IPRASOL4 INH (15:46)
== END 2016-12-13 18:57 | DRG 392 ==
LOC: EDBD 09:03 → C.EDB 09:06 → ENRESERV 12:29 → CANRESERV 12:29 → CANBEDREQ 12:45 → C.MED 12:45 → ENRESERV 13:16
PROVIDERS: ADMIT Hospitalist; ATTEND Family Medicine
DX: K52.89 Other specified noninfective gastroenteritis and colitis (principal); K86.2 Cyst of pancreas; K40.90 Unilateral inguinal hernia, without obstruction or gangrene, not specified as recurrent; B18.2 Chronic viral hepatitis C; I77.1 Stricture of artery; F43.10 Post-traumatic stress disorder, unspecified; I25.10 Atherosclerotic heart disease of native coronary artery without angina pectoris; F41.9 Anxiety disorder, unspecified; N40.0 Benign prostatic hyperplasia without lower urinary tract symptoms; Z86.010 Personal history of colon polyps; F32.9 Major depressive disorder, single episode, unspecified; I10 Essential (primary) hypertension; J44.9 Chronic obstructive pulmonary disease, unspecified; Z79.82 Long term (current) use of aspirin; Z79.899 Other long term (current) drug therapy; Z79.52 Long term (current) use of systemic steroids; Z80.9 Family history of malignant neoplasm, unspecified; Z82.49 Family history of ischemic heart disease and other diseases of the circulatory system; Z87.891 Personal history of nicotine dependence; Z82.3 Family history of stroke

== ENCOUNTER 2016-12-28 09:49 | Day surgery (SDC) | payer OTHER ==
[2016-12-20 15:59] VITALS: BMI 24.0
[2016-12-20 16:16] VITALS: Ht 185.4 cm; Wt 83.1 kg
[~2016-12-28] VITALS: Ht 185.4 cm; Wt 83.1 kg
[~2016-12-28 09:49] MED LIST changes: +ADVIN50/60 INH; -ADVIN50050 INH; -ALBUAER19 INH; -ATRIN INH; +CALC625T PO; -CLR10 PO; +DEXAMETHASONE SOD INJ 4 MG/ML VIAL ONE; +DOCU1TAB6 PO; +DOXE100C4 PO; +DXP/75 PO; +FENTANYL CITRATE INJ 50 MCG/1 ML 2 ML VIAL ONE; +FLM4 PO; +GLYCOPYRROLATE INJ 0.2 MG/ML VIAL ONE; +LACTATED RINGER'S 1000ML 1,000 ML IV SCH; +LIDOCAINE HCL 2% 2 ML VIAL (20MG/ML) ONE; -MELA3TAB PO; +MIDAZOLAM HCL 1 MG/ML 2ML VIAL ONE; +NEOSTIGMINE METHYLSULFATE 5 MG/5 ML SYR ONE; +ONDANSETRON INJ 2 MG/ML 2 ML VIAL ONE; -OXGN; +POLY335019 PO; -PRAZ5CAP2 PO; -PRED20TA2 PO; +PROPOFOL IV EMULSION 10 MG/ML 20 ML VIAL IV ONE; +ROCURONIUM BROMIDE 10 MG/ML 5 ML VIAL ONE; +SNQ/25 PO; +SPRIN/30 INH; +THEO400T PO; -TIOTCAP INH; -TRAZ100T29 PO
[2016-12-28 10:18] VITALS: BP 147/67; PULSE 69; TEMP 36.5; O2SAT 98
[2016-12-28] MEDS ORDERED: MIDAZOLAM HCL 1 MG/ML 2ML VIAL ONE (11:14)
[2016-12-28] MEDS ORDERED: FENTANYL CITRATE INJ 50 MCG/1 ML 2 ML VIAL ONE (11:14)
[2016-12-28] MEDS ORDERED: PROPOFOL IV EMULSION 10 MG/ML 20 ML VIAL IV ONE (11:14)
[2016-12-28] MEDS ORDERED: ROCURONIUM BROMIDE 10 MG/ML 5 ML VIAL ONE (11:14)
[2016-12-28] MEDS ORDERED: LIDOCAINE HCL 2% 2 ML VIAL (20MG/ML) ONE (11:14)
[2016-12-28] MEDS ORDERED: ONDANSETRON INJ 2 MG/ML 2 ML VIAL ONE (11:14)
--- NOTE | 2016-12-28 11:38 | Endo History and Physical ---
History & Physical Date of Service: Dec 28, 2016. Chief Complaint: cyst on pancreas; chronic pancreatitis for EUS possible FNA Referring Physician: History of Present Illness incidential finding on recet inpt CT scan. No prior hx of pancreatitis Past Surgical History Hx Cardiac Surgery: Yes (CARDIAC CATH 2012 STENT) Hx Abdominal Surgery: Yes (HERNIA) Hx Post-Op Nausea and Vomiting: No Hx Cancer Surgery: No Hx Thoracic Surgery: Yes (COLLAPSED RT LUNG) Hx Orthopedic: Yes (BOTH KNEES ARTHROSCOPY) Hx Urinary Tract Surgery: No Social History Smoking Status: Former Smoker Hx Substance Use: No Hx Alcohol Use: No Allergies Coded Allergies: No Known Allergies (Unverified , 12/28/16) Current Medications Reported Home Medications Medications Dose Route/Sig Max Daily Dose Days Date Category Dose Instructions Duoneb (Ipratropium-Albuterol) 3 Ml Nebu 1 Treatment INH QID PRN 12/20/16 Reported Spiriva Handihaler (Tiotropium [place]) 30 Puff/540 Mcg Aerp 1 Cap INH QAM 12/20/16 Reported Miralax (Polyethylene Glycol 3350) 1 Pow Pow 17 Gm PO QAM 12/20/16 Reported Fibercon (Calcium Polycarbophil) 625 Mg Tab 625 Mg PO QAM 12/20/16 Reported Advair Diskus 500/50 60 Dose (Fluticasone Prop/Salmeterol) 1 Ea Aerp 1 Puff INH BID 12/20/16 Reported Theophylline ER (Theophylline) 400 Mg Tabcr 450 Mg PO BID 12/11/16 Reported Tamsulosin HCl 0.4 Mg Cap 0.4 Mg PO QPM 12/11/16 Reported Sinequan (Doxepin HCl) 25 Mg Cap 25 Mg PO QAM 12/11/16 Reported Doxepin (Doxepin Hcl) 100 Mg Cap 100 Mg PO QPM 12/11/16 Reported TAKE WITH 75 MG TAB Doxepin (Doxepin Hcl) 75 Mg Cap 75 Mg PO QPM 12/11/16 Reported TAKE WITH 100 MG TAB Docusate Sodium 100 Mg Tab 100 Mg PO BID 12/11/16 Reported Ventolin (Albuterol) Inh 2 Puffs INH QID PRN 5 06/22/13 Reported Nitrostat (Nitroglycerin) 0.4 Mg Sub 0.4 Mg SL PRN 06/22/13 Reported Catapres (Clonidine Hcl) 0.2 Mg Tab 0.4 Mg PO BID 1/13/14 Reported Coreg (Carvedilol) 25 Mg Tab 50 Mg PO BID 06/22/13 Reported Aspir-Low (Aspirin) 81 Mg Tab 81 Mg PO QAM 06/22/13 Reported Norvasc (Amlodipine Besylate) 10 Mg Tab 10 Mg PO QAM 06/22/13 Reported Vital Signs Weight (Kilograms): 83.10 Height (Feet): 6 Height (Inches): 1 Date Time Temp Pulse Resp B/P (MAP) Pulse Ox O2 Delivery O2 Flow Rate FiO2 12/28/16 10:18 36.5 69 22 147/67 (93) 98 Room Air Physical Exam AAOx3 Nl s1s2 lungs CTA Abd soft NT/ND + BS - CCe CT reviewed Assessment and Plan EUS with possible FNA /cyst aspiration. no allergies to antibiotics per pt consent obtain after risks/benefits alternatives discussed with pt including bit not limited to pancreatitis(5%), bleeding, infection and perforation; pt agrees to proceed. All questions answered hamlet
[2016-12-28] MEDS ORDERED: ONDANSETRON INJ 2 MG/ML 2 ML VIAL IV PRN (12:45)
[2016-12-28] MEDS ORDERED: FENTANYL CITRATE INJ 50 MCG/1 ML 2 ML VIAL IV PRN (12:45)
[2016-12-28] MEDS ORDERED: ATROPINE SULFATE 0.1 MG/ML 5ML SYR IV PRN (12:45)
[2016-12-28] MEDS ORDERED: CIPROFLOXACIN 400MG / 200ML D5W ONE (13:14)
--- NOTE | 2016-12-28 14:11 | GI REPORT ---
Procedure Date: 12/28/2016 11:54 AM Procedure: Upper EUS Indications: Dilated pancreatic duct on CT scan, Pancreatic cyst on CT scan, Abnormal abdominal/pelvic CT scan Medicines: General Anesthesia, Cipro 400 mg IV Complications: No immediate complications. Estimated blood loss: None. Estimated Blood Loss: Estimated blood loss: none. Procedure: Pre-Anesthesia Assessment: - Prior to the procedure, a History and Physical was performed, and patient medications and allergies were reviewed. The patient's tolerance of previous anesthesia was also reviewed. The risks and benefits of the procedure and the sedation options and risks were discussed with the patient. All questions were answered, and informed consent was obtained. Prior Anticoagulants: The patient has taken no previous anticoagulant or antiplatelet agents. ASA Grade Assessment: III - A patient with severe systemic disease. After reviewing the risks and benefits, the patient was deemed in satisfactory condition to undergo the procedure. After obtaining informed consent, the endoscope was passed under direct vision. Throughout the procedure, the patient's blood pressure, pulse, and oxygen saturations were monitored continuously. The Endosonoscope was introduced through the mouth, and advanced to the third part of duodenum. The upper EUS was accomplished without difficulty. The patient tolerated the procedure well. Findings: Endoscopic Finding : The examined esophagus was normal. The entire examined stomach was normal. The examined duodenum was normal. Radial scope insertion: 12:11pm / removal 12:41PM Linear scope insertion: 12:55 PM- removal 1:35 PM Endosonographic Finding : The esophagus, stomach and duodenum and adjacent structures were visualized endosonographically. There was no sign of significant endosonographic abnormality in the esophagus. No pathologic lymphadenopathy was identified. Endosonographic images of the stomach were unremarkable. No pathologic lymphadenopathy was identified. There was no sign of significant endosonographic abnormality in the area of major papilla, within the duodenum and in the examined duodenum. No pathologic lymphadenopathy and no masses were identified. One stone was visualized endosonographically in the gallbladder body. The stone was oval. It was hyperechoic and characterized by shadowing. There was no sign of significant endosonographic abnormality in the common bile duct. The maximum diameter of the duct was 3 mm. No biliary sludge and ducts of normal caliber were identified. There was no sign of significant endosonographic abnormality in the visualized portion of the liver. Homogeneous parenchyma, no focal pathology and no pathologic lymphadenopathy were identified. Endosonographic imaging of the pancreas showed sonographic changes indicative of mild-moderate chronic pancreatitis in the entire pancreas. The parenchyma had calcifications, hyperechoic strands and shadowing foci. The pancreatic duct had duct dilation, intraductal stones and a tortuous/ectatic appearance. The pancreatic duct measured up to 4 mm in diameter. An anechoic lesion suggestive of a cyst was identified in the pancreatic head. It communicates with the pancreatic duct. The lesion measured 18 mm by 15 mm in maximal cross-sectional diameter. There was a single compartment without septae. The outer wall of the lesion was thin. There was no associated mass. There was internal debris within the fluid-filled cavity. Diagnostic and therapeutic needle aspiration for fluid was performed. Color Doppler imaging was utilized prior to needle puncture to confirm a lack of significant vascular structures within the needle path. One pass was made with the 25 gauge needle using a transduodenal approach. No stylet was used. The amount of fluid collected was 2 mL. The fluid was clear and watery. Sample(s) were sent for amylase concentration, cytology and CEA. Pancreatic parenchymal abnormalities were noted in the pancreatic head. These consisted of diffuse echogenicity. Fine needle aspiration for cytology was performed. Color Doppler imaging was utilized prior to needle puncture to confirm a lack of significant vascular structures within the needle path. One pass was made with the 25 gauge needle using a transduodenal approach. A stylet was used. A client services director was present to evaluate the adequacy of the specimen. The cellularity of the specimen was adequate. Final cytology results are pending. There was no sign of significant endosonographic abnormality in the left adrenal gland. No abnormal echogenicity was identified. An anechoic lesion suggestive of a cyst was identified in the lower pole of the left kidney. There was a single compartment without septae. The outer wall of the lesion was thin. There was no associated mass. There was no internal debris within the fluid-filled cavity. Impression: - Normal esophagus. - Normal stomach. - Normal examined duodenum. - There was no sign of significant pathology in the esophagus. - Endosonographic images of the stomach were unremarkable. - There was no sign of significant pathology in the area of major papilla, within the duodenum and in the examined duodenum. - One stone was visualized endosonographically in the gallbladder body. - There was no sign of significant pathology in the common bile duct. - There was no evidence of significant pathology in the visualized portion of the liver. - Endosonographic imaging of the pancreas showed sonographic changes consistent with mild-moderate chronic pancreatitis. - A cystic lesion was seen in the pancreatic head. Fine needle aspiration for fluid performed. - Pancreatic parenchymal abnormalities consisting of diffuse echogenicity were noted in the pancreatic head. Fine needle aspiration performed. - Endosonographic images of the left adrenal gland were unremarkable. - A cystic lesion was identified in the left kidney. Recommendation: - Discharge patient to home (ambulatory). - Advance diet as tolerated. - Continue present medications. - Cipro (ciprofloxacin) 500 mg PO BID for 5 days. - Await cytology results and await tumor markers. - Return to GI clinic in 2 months. MD Laron Iqbal MD 12/28/2016 2:10:32 PM This report has been signed electronically. Note Initiated On: 12/28/2016 11:54 AM I attest to the content of the Intraoperative Record and orders documented therein, exceptions below
--- NOTE | 2016-12-28 14:17 | Discharge Instructions ---
Endoscopy Patient Instructions Date / Procedure(s) Performed Dec 28, 2016. Other Allergy Information Coded Allergies: No Known Allergies (Unverified , 12/28/16) Discharge Date / Findings Dec 28, 2016. changes of chronic pancreatitis pancreatic cyst aspirated Medication Instructions Restart Stopped Medication(s): Reported Home Medications Medications Dose Route/Sig Max Daily Dose Days Date Category Dose Instructions Duoneb (Ipratropium-Albuterol) 3 Ml Nebu 1 Treatment INH QID PRN 12/20/16 Reported Spiriva Handihaler (Tiotropium [place]) 30 Puff/540 Mcg Aerp 1 Cap INH QAM 12/20/16 Reported Miralax (Polyethylene Glycol 3350) 1 Pow Pow 17 Gm PO QAM 12/20/16 Reported Fibercon (Calcium Polycarbophil) 625 Mg Tab 625 Mg PO QAM 12/20/16 Reported Advair Diskus 500/50 60 Dose (Fluticasone Prop/Salmeterol) 1 Ea Aerp 1 Puff INH BID 12/20/16 Reported Theophylline ER (Theophylline) 400 Mg Tabcr 450 Mg PO BID 12/11/16 Reported Tamsulosin HCl 0.4 Mg Cap 0.4 Mg PO QPM 12/11/16 Reported Sinequan (Doxepin HCl) 25 Mg Cap 25 Mg PO QAM 12/11/16 Reported Doxepin (Doxepin Hcl) 100 Mg Cap 100 Mg PO QPM 12/11/16 Reported TAKE WITH 75 MG TAB Doxepin (Doxepin Hcl) 75 Mg Cap 75 Mg PO QPM 12/11/16 Reported TAKE WITH 100 MG TAB Docusate Sodium 100 Mg Tab 100 Mg PO BID 12/11/16 Reported Ventolin (Albuterol) Inh 2 Puffs INH QID PRN 5 06/22/13 Reported Nitrostat (Nitroglycerin) 0.4 Mg Sub 0.4 Mg SL PRN 06/22/13 Reported Catapres (Clonidine Hcl) 0.2 Mg Tab 0.4 Mg PO BID 06/22/13 Reported Coreg (Carvedilol) 25 Mg Tab 50 Mg PO BID 06/22/13 Reported Aspir-Low (Aspirin) 81 Mg Tab 81 Mg PO QAM 06/22/13 Reported Norvasc (Amlodipine Besylate) 10 Mg Tab 10 Mg PO QAM 06/22/13 Reported Cipro 500mg twice daily for 5 days- finish meds Reported Home Medications Medications Dose Route/Sig Max Daily Dose Days Date Category Dose Instructions Duoneb (Ipratropium-Albuterol) 3 Ml Nebu 1 Treatment INH QID PRN 12/20/16 Reported Spiriva Handihaler (Tiotropium [place]) 30 Puff/540 Mcg Aerp 1 Cap INH QAM 12/20/16 Reported Miralax (Polyethylene Glycol 3350) 1 Pow Pow 17 Gm PO QAM 12/20/16 Reported Fibercon (Calcium Polycarbophil) 625 Mg Tab 625 Mg PO QAM 12/20/16 Reported Advair Diskus 500/50 60 Dose (Fluticasone Prop/Salmeterol) 1 Ea Aerp 1 Puff INH BID 12/20/16 Reported Theophylline ER (Theophylline) 400 Mg Tabcr 450 Mg PO BID 12/11/16 Reported Tamsulosin HCl 0.4 Mg Cap 0.4 Mg PO QPM 12/11/16 Reported Sinequan (Doxepin HCl) 25 Mg Cap 25 Mg PO QAM 12/11/16 Reported Doxepin (Doxepin Hcl) 100 Mg Cap 100 Mg PO QPM 12/11/16 Reported TAKE WITH 75 MG TAB Doxepin (Doxepin Hcl) 75 Mg Cap 75 Mg PO QPM 12/11/16 Reported TAKE WITH 100 MG TAB Docusate Sodium 100 Mg Tab 100 Mg PO BID 12/11/16 Reported Ventolin (Albuterol) Inh 2 Puffs INH QID PRN 5 06/22/13 Reported Nitrostat (Nitroglycerin) 0.4 Mg Sub 0.4 Mg SL PRN 06/22/13 Reported Catapres (Clonidine Hcl) 0.2 Mg Tab 0.4 Mg PO BID 06/22/13 Reported Coreg (Carvedilol) 25 Mg Tab 50 Mg PO BID 06/22/13 Reported Aspir-Low (Aspirin) 81 Mg Tab 81 Mg PO QAM 06/22/13 Reported Norvasc (Amlodipine Besylate) 10 Mg Tab 10 Mg PO QAM 06/22/13 Reported Cipro 500mg twice daily for 5 days- finish meds Provider Instructions Activity Restrictions - No exercising or heavy lifting for 24 hours. - Do not drink alcohol the day of the procedure. - Do not drive a car or operate machinery until the day after the procedure. - Do not make any important decisions or sign important papers in 24 hours after the procedure. Following Day: - Return to full activity which may include returning to work/school. Diet Start your diet with liquids and light foods (jello, soup, juice, toast). Then eat your usual diet if not nauseated. Treatment For Common After Affects For mild abdominal pain, bloating, or excessive gas: - Rest - Eat lightly - Lie on right side Follow-Up Information Follow-up with as scheduled Anesthesia Information What You Should Know You have had a procedure that required some medicine to reduce anxiety and discomfort. This treatment is called moderate sedation. After receiving the treatment, you may be sleepy, but you will be able to breathe on your own. The effects of the treatment may last for several hours. Follow these instructions along with Activity/Diet recommendations noted above: * Do NOT do anything where dizziness or clumsiness would be dangerous. * Rest quietly at home today, then you can be up and about tomorrow. * Have a responsible person stay with you the rest of today. * You may have had an I.V. today. If so, you may take the dressing off later today. Recommendations Call your doctor if: * Trouble breathing * Continuous vomiting for more than 24 hours * Temperature above 101 degrees * Severe abdominal pain or bloating * Pain not relieved by pain medicine ordered * There is increased drainage or redness from any incision * A large amount of rectal bleeding greater than 2-3 tablespoons. (If you had a polyp/s removed or have hemorrhoids, a small amount of blood - from the rectum is to be expected.) * You have any unanswered questions or concerns. IN THE EVENT OF A SERIOUS EMERGENCY, GO TO THE NEAREST EMERGENCY ROOM Your discharge instructions were prepared by provider Laron Trinh. Patient Instructions Signature Page Thien Lawrence Patient (or Guardian) Signature/Date: I have read and understand the instructions given to me by my caregivers. Caregiver/RN/Doctor Signature/Date: The above-named patient and/or guardian has received patient instructions on this date. + Original Patient Signature Page (only) stays with chart. Please make copy for patient.
--- NOTE | 2016-12-28 14:26 | Anesthesiology Progress Note ---
Anesthesia Post Op Note Date & Time Dec 28, 2016 at 14:26 Vital Signs Pain Intensity: 0 Vital Signs Past 12 Hours Date Time Temp Pulse Resp B/P (MAP) Pulse Ox O2 Delivery O2 Flow Rate FiO2 12/28/16 14:17 65 15 100 12/28/16 14:17 66 15 12/28/16 14:16 145/87 12/28/16 14:12 36.6 65 22 145/87 (100) 100 Room Air 12/28/16 14:12 66 15 100 12/28/16 14:12 66 15 12/28/16 14:11 141/84 12/28/16 14:07 67 17 100 12/28/16 14:07 67 17 12/28/16 14:06 152/85 12/28/16 14:05 67 17 12/28/16 14:05 67 17 100 12/28/16 14:01 145/82 12/28/16 14:00 68 18 100 12/28/16 14:00 68 18 12/28/16 13:57 36.2 71 18 157/94 100 Mask 10 12/28/16 13:56 152/82 12/28/16 13:55 70 21 100 12/28/16 13:55 70 21 12/28/16 13:50 71 157/94 100 12/28/16 13:50 71 12/28/16 10:18 36.5 69 22 147/67 (93) 98 Room Air Notes Mental Status: alert / awake / arousable, participated in evaluation Pt Amnestic to Procedure: Yes Nausea / Vomiting: adequately controlled Pain: adequately controlled Airway Patency, RR, SpO2: stable & adequate BP & HR: stable & adequate Hydration State: stable & adequate Anesthetic Complications: no major complications apparent
[2016-12-28 14:30] VITALS: BP 150/79; PULSE 68; TEMP 36.8; O2SAT 94
[2016-12-28 15:00] VITALS: BP 162/86; PULSE 76; O2SAT 95
[2016-12-28 15:30] VITALS: BP 140/80; PULSE 70; TEMP 36.6; O2SAT 96
== END 2016-12-28 15:35 | disposition home or self-care (01) ==
LOC: C.ACU 09:49
PROVIDERS: ATTEND Internal Medicine Gastroenterology
DX: K86.2 Cyst of pancreas (principal); K86.89 Other specified diseases of pancreas; N28.1 Cyst of kidney, acquired; Z87.891 Personal history of nicotine dependence; Z79.899 Other long term (current) drug therapy

== ENCOUNTER 2017-04-08 08:23 | Emergency (ER) | payer OTHER ==
[~2017-04-08] VITALS: Ht 185.4 cm; Wt 81.8 kg
[~2017-04-08 08:23] MED LIST changes: -DEXAMETHASONE SOD INJ 4 MG/ML VIAL ONE; -FENTANYL CITRATE INJ 50 MCG/1 ML 2 ML VIAL ONE; -GLYCOPYRROLATE INJ 0.2 MG/ML VIAL ONE; -LACTATED RINGER'S 1000ML 1,000 ML IV SCH; -LIDOCAINE HCL 2% 2 ML VIAL (20MG/ML) ONE; -MIDAZOLAM HCL 1 MG/ML 2ML VIAL ONE; -NEOSTIGMINE METHYLSULFATE 5 MG/5 ML SYR ONE; -ONDANSETRON INJ 2 MG/ML 2 ML VIAL ONE; -PROPOFOL IV EMULSION 10 MG/ML 20 ML VIAL IV ONE; -ROCURONIUM BROMIDE 10 MG/ML 5 ML VIAL ONE
[2017-04-08 08:32] VITALS: TEMP 36.8; O2SAT 97; Ht 185.4 cm; Wt 81.8 kg
--- NOTE | 2017-04-08 09:21 | EMERGENCY ROOM VISIT NOTE ---
History Report prepared by Soni: Anaya Bailon Under the Supervision of: Dr. Shelley Dawson M.D. First contact with patient: 08:50 Chief Complaint: SHORTNESS OF BREATH Stated Complaint: SOB Nursing Triage Summary: Patient presents via ALS ambulance to [facility] from [facility] with c/o SOB Patient reports that onset was sudden while walking this morning Pulse oximetry on room air at [facility] was reported at 80% Patient reported chest pain with the shortness of breath, was given 2 SL nitroglycerin at [facility] with relief of symptoms He received one duoneb nebulizer treatment at [facility] He now reports "I felt like I was drowning" History of Present Illness The patient is a 67 year old male who presents to the Emergency Room with complaints of persistent shortness of breath that began this morning prior to arrival. He currently rates his discomfort as a 2/10 in severity. The patient states that he was walking to breakfast this morning when he became short of breath and states that he could not make it to breakfast and states that he went to medical. Per nursing notes, the patient had an oxygen saturation of 80 % at [facility]. Nursing notes report that the patient was given 2 sublingual nitroglycerin for his chest pain and shortness of breath that alleviated his symptoms. Nursing notes report that the patient was given a DuoNeb nebulizer treatment prior to arrival as well. The patient denies wearing nasal cannula oxygen at home. He states that he is a previous smoker of 40-50 years, but states that he quit three years ago. The patient denies any fever but states that he has been feeling chilled. He denies any history of COPD. Source of History: patient Onset: this morning prior to arrival Position: other (global) Symptom Intensity: 2/10 Quality: other (shortness of breath) Timing: other (persistent) Associated Symptoms: + chills, + chest pain, No fevers Review of Systems See HPI for pertinent positives & negatives. A total of 10 systems reviewed and were otherwise negative. 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 (14) Tobacco use Surgical Problems: (1) Status post arthroscopic knee surgery (2) Status post hemorrhoidectomy (3) Status post hernia repair Family History Cancer Heart disease Hypertension Stroke Social History Smoking Status: Former Smoker Alcohol Use: none Housing Status: other Occupation Status: other Current/Historical Medications Scheduled Amlodipine (Norvasc), 10 MG PO QAM Aspirin (Aspir-Low), 81 MG PO QAM Calcium Polycarbophil (Fibercon), 625 MG PO QAM Carvedilol (Coreg), 50 MG PO BID Clonidine Hcl (Catapres), 0.4 MG PO BID Docusate Sodium (Docusate Sodium), 100 MG PO BID Doxepin (Sinequan), 25 MG PO QAM Doxepin Hcl (Doxepin), 75 MG PO QPM Doxepin Hcl (Doxepin), 100 MG PO QPM Fluticasone Prop/Salmeterol (Advair Diskus 500/50 60 Dose), 1 PUFF INH BID Nitroglycerin (Nitrostat), 0.4 MG SL PRN Prednisone (Prednisone), 20 MG PO DAILY Tamsulosin HCl (Tamsulosin HCl), 0.4 MG PO QPM Theophylline (Theophylline ER), 450 MG PO BID Umeclidinium [place] (Incruse Ellipta), 1 PUFF PO DAILY Scheduled PRN Albuterol Hfa (Ventolin Hfa), 2 PUFFS INH Q6H PRN for SOB/Wheezing Ipratropium-Albuterol (Duoneb), 1 TREATMENT INH QID PRN for RN Allergies Coded Allergies: No Known Allergies (Unverified , 04/08/17) Physical Exam Vital Signs Date Time Temp Pulse Resp B/P (MAP) Pulse Ox O2 Delivery O2 Flow Rate FiO2 04/08/17 12:48 97 24 172/95 92 04/08/17 12:02 110 04/08/17 11:29 90 20 166/88 92 Nasal Cannula 2.0 04/08/17 10:01 90 24 183/99 92 Nebulizer 04/08/17 09:44 87 24 93 Room Air 04/08/17 08:32 97 Nasal Cannula 04/08/17 08:32 97 Nasal Cannula 2.0 04/08/17 08:32 36.8 89 28 153/93 97 Nasal Cannula 2.0 04/08/17 08:32 93 Room Air 04/08/17 08:29 94 Physical Exam Vital signs reviewed. General: Well-appearing male, in no significant distress. HEENT: No scleral icterus, PERRLA, neck supple. Atraumatic. Cardiovascular: Regular rate and rhythm, no extra sounds. Pulmonary: Coarse breath sounds bilaterally, increased work of breathing, moist cough. Abdomen: Soft, nontender, nondistended, positive bowel sounds. Musculoskeletal: Atraumatic, no peripheral edema. Neurologic: Patient awake alert and oriented x 3 Skin: Warm, dry, no rash Medical Decision & Procedures ER Provider Diagnostic Interpretation: X-ray results as stated below per interpretation by me and the radiologist: CHEST ONE VIEW PORTABLE CLINICAL HISTORY: COPD COMPARISON STUDY: 06/22/2013 FINDINGS: There is severe pulmonary emphysema. There is an ill-defined 3 cm right lower lung zone airspace opacity, equivocally present on the prior June 2013 study. There are small bilateral pleural effusions.[ IMPRESSION: 1. Indeterminate 3 cm right lower lung zone airspace opacity 2. Pulmonary emphysema 3. Suspected small pleural effusions Electronically signed by: Antonio Hallman M.D. 04/08/2017 10:08 AM Dictated Date/Time: 04/08/2017 10:05 AM Laboratory Results 04/08/17 09:42 Red Blood Count 4.93, Mean Corpuscular Volume 90.9, Mean Corpuscular Hemoglobin 31.8, Mean Corpuscular Hemoglobin Concent 35.0, Mean Platelet Volume 8.7, Neutrophils (%) (Auto) 88.2, Lymphocytes (%) (Auto) 6.1, Monocytes (%) (Auto) 4.4, Eosinophils (%) (Auto) 0.9, Basophils (%) (Auto) 0.1, Neutrophils # (Auto) 13.80, Lymphocytes # (Auto) 0.95, Monocytes # (Auto) 0.68, Eosinophils # (Auto) 0.14, Basophils # (Auto) 0.01 04/08/17 09:42 Test 04/08/17 09:35 04/08/17 09:42 04/08/17 09:59 Influenza Type A (RT-PCR) Neg for Influ A (NEG) Influenza Type A Antigen Neg for Influ A (NEG) Influenza Type B Antigen Neg for Influ B (NEG) Influenza Type B (RT-PCR) Neg for Influ B (NEG) White Blood Count 15.62 K/uL (4.8-10.8) Red Blood Count 4.93 M/uL (4.7-6.1) Hemoglobin 15.7 g/dL (14.0-18.0) Hematocrit 44.8 % (42-52) Mean Corpuscular Volume 90.9 fL (80-100) Mean Corpuscular Hemoglobin 31.8 pg (25-34) Mean Corpuscular Hemoglobin Concent 35.0 g/dl (32-36) Platelet Count 219 K/uL (130-400) Mean Platelet Volume 8.7 fL (7.4-10.4) Neutrophils (%) (Auto) 88.2 % Lymphocytes (%) (Auto) 6.1 % Monocytes (%) (Auto) 4.4 % Eosinophils (%) (Auto) 0.9 % Basophils (%) (Auto) 0.1 % Neutrophils # (Auto) 13.80 K/uL (1.4-6.5) Lymphocytes # (Auto) 0.95 K/uL (1.2-3.4) Monocytes # (Auto) 0.68 K/uL (0.11-0.59) Eosinophils # (Auto) 0.14 K/uL (0-0.5) Basophils # (Auto) 0.01 K/uL (0-0.2) RDW Standard Deviation 45.9 fL (36.4-46.3) RDW Coefficient of Variation 13.9 % (11.5-14.5) Immature Granulocyte % (Auto) 0.3 % Immature Granulocyte # (Auto) 0.04 K/uL (0.00-0.02) Anion Gap 7.0 mmol/L (3-11) Est Creatinine Clear Calc Drug Dose 81.6 ml/min Estimated GFR () 89.0 Estimated GFR (Non- 76.8 BUN/Creatinine Ratio 10.8 (10-20) Calcium Level 9.2 mg/dl (8.5-10.1) Total Bilirubin 0.5 mg/dl (0.2-1) Direct Bilirubin 0.2 mg/dl (0-0.2) Aspartate Amino Transf (AST/SGOT) 23 U/L (15-37) Alanine Aminotransferase (ALT/SGPT) 33 U/L (12-78) Alkaline Phosphatase 59 U/L (45-117) Total Protein 6.7 gm/dl (6.4-8.2) Albumin 3.5 gm/dl (3.4-5.0) Bedside Troponin I 0.030 ng/ml (0-0.045) Laboratory results per my review. Medications Administered Medications (Trade) Dose Ordered Sig/Uma Route Start Time Stop Time Status Last Admin Dose Admin Albuterol/ Ipratropium (Duoneb) 12 ml ONE ONCE INH 04/08/17 09:30 04/08/17 09:31 DC 04/08/17 09:42 12 ML Levofloxacin (Levaquin / D5W) 750 mg NOW STAT IV 04/08/17 10:07 04/08/17 10:08 DC 04/08/17 10:36 750 MG Amlodipine Besylate (Norvasc Tab) 10 mg NOW ONCE PO 04/08/17 11:00 04/08/17 11:01 DC 04/08/17 12:11 10 MG Carvedilol (Coreg Tab) 50 mg NOW ONCE PO 04/08/17 11:00 04/08/17 11:01 DC 04/08/17 12:14 50 MG Clonidine HCl (Catapres Tab) 0.4 mg NOW ONCE PO 04/08/17 11:00 04/08/17 11:01 DC 04/08/17 12:13 0.4 MG Doxepin HCl (Sinequan Cap) 25 mg NOW STAT PO 04/08/17 10:50 04/08/17 10:53 DC 04/08/17 12:14 25 MG Theophylline (Uniphyl Controlled Rel 24hr Tab) 400 mg NOW STAT PO 04/08/17 10:53 04/08/17 10:54 DC 04/08/17 12:15 400 MG ECG Indication: chest pain, SOB/dyspnea Rate (beats per minute): 92 Rhythm: normal sinus Findings: nonspecific-ST abn (Inferior), no ectopy, other (poor quality baseline for interpreation, previous septal infarct) Comparison ECG Date: 12/13/16 Change: no significant change ED Course 0916: Past medical records reviewed. The patient was evaluated in room B6. A complete history and physical examination was performed. 0930: Ordered DuoNeb 12 ml INH. 1007: Ordered Levofloxacin 750 mg IV. 1050: Ordered Doxepin HCl 25 mg PO. 1053: Ordered Theophylline 400 mg PO. 1100: Ordered Clonidine HCl 0.4 mg PO, Carvedilol 50 mg PO, Norvasc Tab 10 mg PO. 1213: I reevaluated the patient and he is resting comfortably. I discussed the exam findings with him and I discussed the treatment plan. He verbalized complete understanding and agreement. He is ready for discharge shortly. Medical Decision Differential diagnosis: Etiologies such as infections, reactive airway disease, pneumonia, pneumothorax , COPD, CHF, cardiac ischemia, pulmonary embolism, musculoskeletal, gastrointestinal, as well as others were entertained. This patient was evaluated and appeared to be in no significant distress. The patient has a borderline oxygenation but has a history of severe emphysema. Patient has been given 2 DuoNeb times in route and was given one more here in the ER. He was given IV site and Medrol. Chest x-ray was performed and reveals a right lower lung field opacity that has been visualized previously. I suspect the patient is suffering from a COPD exacerbation/bronchitis. He was given IV Levaquin. His oxygenation has improved. Patient will be discharged with a prednisone taper and Levaquin 6 more days. He will continue the nebulizer treatments at skilled nursing. Patient will return to the ER for worsening of symptoms or any medical concerns. Medication Reconcilliation Current Medication List: was personally reviewed by me Impression Primary Impression: COPD with acute exacerbation Additional Impression: Acute bronchitis Scribe Attestation The scribe's documentation has been prepared under my direction and personally reviewed by me in its entirety. I confirm that the note above accurately reflects all work, treatment, procedures, and medical decision making performed by me. Departure Information Dispostion Home / Self-Care Referrals Omar De Luna M.D. (PCP) [facility] Forms HOME CARE DOCUMENTATION FORM, IMPORTANT VISIT INFORMATION Patient Instructions My [facility] Additional Instructions Diagnosis: Bronchitis, COPD exacerbation Continue nebulizers every 4 hours as needed for wheezing, cough Prednisone 40 mg for 4 days, 30 mg for 3 days, 20 mg for 2 days, 10 mg for 2 days. Start tomorrow. Levaquin 750 mg daily for 6 more days, start tomorrow. Follow up with skilled nursing medical staff this week for reevaluation. Return to the ED for worsening of symptoms or any medical concerns. Problem Qualifiers
[2017-04-08] MEDS ORDERED: ALBUT/IPRATROP 3MG/0.5MG NEB 3 ML VIAL INH ONE (09:30)
[2017-04-08] MEDS ORDERED: UMEC1INH PO (09:41)
[2017-04-08] MEDS ORDERED: PRED10TA PO (09:42)
[2017-04-08 09:44] VITALS: PULSE 87; O2SAT 93
[2017-04-08] MEDS ORDERED: VNTHFA/IN INH (09:44)
[2017-04-08 10:03] LABS: BASO % 0.1 %; BASO ABS # 0.01 K/uL (0-0.2); COMPLETE YES; EOS % 0.9 %; HEMATOCRIT 44.8 % (42-52); IG% 0.3 %; LYMPH % 6.1 %; LYMPH ABS # 0.95 K/uL (1.2-3.4); MEAN CELL VOLUME 90.9 fL (80-100); MEAN CORPUSCULAR HEMOGLOBIN 31.8 pg (25-34); MEAN PLATELET VOLUME 8.7 fL (7.4-10.4); MONO % 4.4 %; NEUT % 88.2 %; PLATELET COUNT 219 K/uL (130-400); RED BLOOD COUNT 4.93 M/uL (4.7-6.1); WHITE BLOOD COUNT 15.62 K/uL (4.8-10.8)
[2017-04-08] MEDS ORDERED: LEVAQUIN 750MG / 150ML D5W IV STA (10:07)
--- NOTE | 2017-04-08 10:09 | DIAGNOSTIC IMAGING REPORT ---
CHEST ONE VIEW PORTABLE CLINICAL HISTORY: COPD COMPARISON STUDY: 06/22/2013 FINDINGS: There is severe pulmonary emphysema. There is an ill-defined 3 cm right lower lung zone airspace opacity, equivocally present on the prior June 2013 study. There are small bilateral pleural effusions.[ IMPRESSION: 1. Indeterminate 3 cm right lower lung zone airspace opacity 2. Pulmonary emphysema 3. Suspected small pleural effusions Electronically signed by: Antonio Hallman M.D. 04/08/2017 10:08 AM Dictated Date/Time: 04/08/2017 10:05 AM
[2017-04-08 10:24] LABS: BUN/CREATININE RATIO 10.8 (10-20); CALCIUM 9.2 mg/dl (8.5-10.1); CREATININE 1.02 mg/dl (0.60-1.40); POTASSIUM 3.5 mmol/L (3.5-5.1)
[2017-04-08] MEDS ORDERED: DOXEPIN HCL 25 MG CAP PO STA (10:50)
[2017-04-08] MEDS ORDERED: THEOPHYLLINE 400MG CONTROLLED REL TAB PO STA (10:53)
[2017-04-08] MEDS ORDERED: CLONIDINE HCL 0.1 MG TAB PO ONE (11:00)
[2017-04-08] MEDS ORDERED: AMLODIPINE BESYLATE 5 MG TAB PO ONE (11:00)
[2017-04-08] MEDS ORDERED: CARVEDILOL 25 MG TAB PO ONE (11:00)
[2017-04-08 11:56] LABS: INFLUENZA A PCR Neg for Influ A (NEG); INFLUENZA B PCR Neg for Influ B (NEG)
[2017-04-08 12:48] VITALS: BP 172/95; PULSE 97; O2SAT 92
== END 2017-04-08 12:48 | disposition home or self-care (01) ==
LOC: EDBD 08:23 → C.EDB 08:24
DX: J44.1 Chronic obstructive pulmonary disease with (acute) exacerbation (principal); J20.9 Acute bronchitis, unspecified; R06.02 Shortness of breath; Z79.899 Other long term (current) drug therapy; I25.10 Atherosclerotic heart disease of native coronary artery without angina pectoris; F17.210 Nicotine dependence, cigarettes, uncomplicated

== ENCOUNTER 2017-05-07 14:32 | Inpatient (IN) | payer OTHER ==
[~2017-05-07] VITALS: Ht 185.4 cm; Wt 78.0 kg
[~2017-05-07 14:32] MED LIST changes: -ALBUAER2 INH; -POLY335019 PO; +PRED10TA PO; -SPRIN/30 INH; +UMEC1INH PO; +VNTHFA/IN INH
[2017-05-07] MEDS ORDERED: ONDANSETRON INJ 2 MG/ML 2 ML VIAL IV STA (14:53)
[2017-05-07] MEDS ORDERED: MoRPHine SULFATE 10 MG/ML CARP/VIAL IV STA (14:53)
[2017-05-07] MEDS ORDERED: OPTIRAY 320 IV PRN (15:00)
[2017-05-07] MEDS ORDERED: PRED20TA PO (15:22)
[2017-05-07] MEDS ORDERED: AMOX875T PO (15:22)
[2017-05-07 15:39] LABS: BASO % 0.1 %; BASO ABS # 0.01 K/uL (0-0.2); COMPLETE YES; HEMATOCRIT 46.6 % (42-52); IG% 0.3 %; LYMPH % 6.7 %; LYMPH ABS # 0.86 K/uL (1.2-3.4); MEAN CELL VOLUME 90.3 fL (80-100); MEAN CORPUSCULAR HGB CONC 34.3 g/dl (32-36); MEAN PLATELET VOLUME 8.5 fL (7.4-10.4); MONO % 2.1 %; NEUT % 90.8 %; PLATELET COUNT 420 K/uL (130-400); RED BLOOD COUNT 5.16 M/uL (4.7-6.1)
[2017-05-07 15:50] LABS: BUN/CREATININE RATIO 17.2 (10-20); CALCIUM 9.3 mg/dl (8.5-10.1); CREATININE 1.41 mg/dl (0.60-1.40); POTASSIUM 4.4 mmol/L (3.5-5.1)
--- NOTE | 2017-05-07 16:15 | DIAGNOSTIC IMAGING REPORT ---
ABD/PELVIS IV CONTRAST ONLY CLINICAL HISTORY: 67 years-old Male presenting with abd pain ? sbo, bloating, decreased bowel sounds. TECHNIQUE: Multidetector CT of the abdomen and pelvis was performed after the administration of intravenous contrast. IV contrast: 95 mL of Optiray 320. A dose lowering technique was used consistent with the principles of ALARA (as low as reasonably achievable). COMPARISON: 12/11/2016. CT DOSE (mGy.cm): The estimated cumulative dose is 280.68 mGy.cm. FINDINGS: Inpatient Services Director topogram: Marked gaseous distention of colon as on prior exam. Lung bases: Emphysema. Bandlike opacities at the right lung base likely scarring. Solid 4 mm nodule at the right lower lobe (series 3 image 7). Multifocal subsegmental bronchial filling defects likely mucous plugging. Normal heart size. No pericardial or pleural effusion. Liver: Normal morphology. No liver lesion. Patent hepatic vasculature. Biliary: Mild diffuse intrahepatic biliary ductal dilatation similar to prior exam, which affects the right lobe to the greatest degree. No convincing evidence of extrahepatic biliary ductal dilatation. Normal gallbladder. Pancreas: Multifocal coarse parenchymal calcifications suggest a history of chronic pancreatitis. Mild pancreatic ductal dilatation unchanged from prior. Focal cystic lesion in the uncinate process/pancreatic head now measures 1.8 x 1.4 cm, previously 2.0 x 1.8 cm, essentially unchanged from prior. Spleen: Normal. Adrenal glands: Normal. Kidneys and ureters: Multiple hypodensities in the kidneys bilaterally likely simple cysts. No hydronephrosis. Renal vascular calcification noted. No nephrolithiasis. Ureters normal. Bladder: Normal. Pelvic organs: Prostate enlargement likely secondary to benign prostatic hyperplasia. Bowel: Marked distention of colon with gas and stool similar to prior exam. This primarily affects the cecum through the transverse colon. Wall thickening of the splenic flexure extends through the sigmoid colon. This is associated with mild pericolonic inflammatory change. This is fairly similar to the prior exam although this segment of colon is not as distended as on prior. Small bowel unremarkable. Peritoneal cavity: Small amount of free fluid in the pelvis. No free intraperitoneal gas. Lymph nodes: No enlarged lymph nodes in the abdomen or pelvis. Vasculature: Atherosclerosis of the normal caliber abdominal aorta. IVC patent. Abdominal wall: Fat-containing left inguinal hernia. Postsurgical changes of right inguinal hernia repair. Musculoskeletal: Degenerative changes of the spine. IMPRESSION: 1. Colonic wall thickening and mild pericolonic inflammatory changes extending from the splenic flexure through the sigmoid colon most consistent with stercoral colitis. Chronic marked distention of cecum through the transverse colon with gas and stool. 2. Emphysema. 3. Solid 4 mm pulmonary nodule in the right lower lobe. Follow-up per [place] [employer] 2017 recommendations. 4. 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 Persistent mild hepatic ductal dilatation. One-year follow-up MRI is recommended to ensure stability of this lesion. 5. Stable mild intrahepatic biliary ductal dilatation, which may be secondary to the presence of the pancreatic head lesion. 6. Small amount of pelvic ascites may be reactive to the patient's presumed stercoral colitis. Please refer to below summary of Fleischner Society 2017 recommendations for follow-up of incidental CT nodules (Sima Garcia et al. Guidelines for management of incidental pulmonary nodules detected on CT images: From the Fleischner Society 2017. Radiology 2017; 284: 228-243.) SOLID NODULES Single nodule; size < 6 mm * Low risk patients: No routine follow-up * High risk patients: Optional CT at 12 months Single nodule; size 6-8 mm * Low risk patients: CT at 6-12 months, then consider CT at 18-24 months * High risk patients: CT at 6-12 months, then at 18-24 months Single nodule; size > 8 mm * Either low or high risk patients: Considered CT at 3 months, PET/CT, or tissue sampling Multiple nodules; size < 6 mm * Low risk patients: No routine follow up * High risk patients: Optional CT at 12 months Multiple nodules; size 6-8 mm * Low risk patients: CT at 3-6 months, then consider CT at 18-24 months * High risk patients: CT at 3-6 months, then at 18-24 months Multiple nodules; size > 8 mm * Low risk patients: CT at 3-6 months, then consider at 18-24 months * High risk patients: CT at 3-6 months, then at 18-24 months Note: These guidelines apply to incidental nodules. These guidelines do not apply to patients younger than 35 years, immunocompromised patients, or patients with cancer. * Low risk patients: Minimal or absent history of smoking and/or other known risk factors * High risk patients: History of smoking, exposure to other carcinogens, emphysema, fibrosis, upper lobe location, family history of lung cancer, etc. * If a nodule up to 8 mm is partly solid or is ground glass, further follow-up is required after 24 months to exclude possible slow growing adenocarcinoma. SUBSOLID NODULES Single ground-glass nodule * Nodule size < 6 mm: No routine follow-up * Nodule size > or = 6 mm: CT at 6-12 months to confirm persistence, then CT every 2 years until 5 years Single part-solid nodule * Nodule size < 6 mm: No routine follow-up * Nodules size > or = 6 mm: CT at 3-6 months to confirm persistence. If unchanged and solid component remains < 6 mm, annual CT should be performed for 5 years Multiple nodules * Nodule size < 6 mm: CT at 3-6 months. If stable, consider CT at 2 and 4 years. * Nodules size > or = 6 mm: CT at 3-6 months. Subsequent management based on the most suspicious nodule(s) Electronically signed by: Darius Cade M.D. 05/07/2017 4:14 PM Dictated Date/Time: 05/07/2017 4:03 PM
[2017-05-07 16:26] LABS: MANUAL MICROSCOPIC REQUIRED? NO; REVIEW REQ? YES; URINE APPEARANCE CLEAR (CLEAR); URINE COLOR DK YELLOW; URINE EPITHELIAL CELL AUTO 0-5 /lpf (0-5); URINE NITRITE NEG (NEG); URINE PH 5.5 (4.5-7.5); URINE SPECIFIC GRAVITY 1.024 (1.000-1.030); UROBILINOGEN NEG (NEG); ZZUR CULT IF INDIC CLEAN CATCH NO
[2017-05-07 16:28] LABS: URINE BILIRUBIN NEG (NEG)
[2017-05-07 16:42] LABS: ISTAT CREATININE 1.3 mg/dl (0.6-1.3); ISTAT HEMOGLOBIN 15.3 g/dl (14.0-18.0); ISTAT IONIZED CALCIUM 1.19 mmol/l (1.12-1.32)
[2017-05-07 16:44] VITALS: O2SAT 95
--- NOTE | 2017-05-07 17:25 | EMERGENCY ROOM VISIT NOTE ---
History Report prepared by Soni: Marsha Shrestha Under the Supervision of: Dr. Richard Mendez D.O. First contact with patient: 14:41 Chief Complaint: ABDOMINAL PAIN Stated Complaint: ABD. PAIN, BLOATING, DECREASED BOWEL SOUNDS Nursing Triage Summary: pt to the ED with c/o nausea, constipation, abd pain and difficulty voiding pt sent in from nursing home History of Present Illness The patient is a 67 year old male who presents to the Emergency Room with complaints of worsening diffuse abdominal pain for the past few days. The patient has not had a bowel movement for the past 4 days. He reports that he is no longer able to pass gas. He has a history of multiple bowel obstructions and states that his current symptoms feel similar to his previous obstructions. The patient rates his current pain as a 10/10 in severity. He is also complaining of nausea and abdominal distention. He denies any previous abdominal surgeries. Pt denies headache, change in vision, fevers, cough, chest pain, shortness of breath, vomiting, diarrhea, urinary symptoms, and melena. 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 No BM or gas in 4 days. Review of Systems See HPI for pertinent positives & negatives. A total of 10 systems reviewed and were otherwise negative. 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 (14) Tobacco use Surgical Problems: (1) Status post arthroscopic knee surgery (2) Status post hemorrhoidectomy (3) Status post hernia repair Family History Cancer Heart disease Hypertension Stroke Social History Smoking Status: Current Every Day Smoker Alcohol Use: none Housing Status: other (incarcerated) Occupation Status: other (incarcerated) Current/Historical Medications Scheduled Amlodipine (Norvasc), 10 MG PO QAM Amoxicillin & Pot Clavulanate (Augmentin 875-125 mg), 1 TAB PO BID Aspirin (Aspir-Low), 81 MG PO QAM Calcium Polycarbophil (Fibercon), 625 MG PO QAM Carvedilol (Coreg), 50 MG PO BID Clonidine Hcl (Catapres), 0.4 MG PO BID Docusate Sodium (Docusate Sodium), 100 MG PO BID Doxepin (Sinequan), 25 MG PO QAM Doxepin Hcl (Doxepin), 75 MG PO QPM Doxepin Hcl (Doxepin), 100 MG PO QPM Fluticasone Prop/Salmeterol (Advair Diskus 500/50 60 Dose), 1 PUFF INH BID Nitroglycerin (Nitrostat), 0.4 MG SL PRN Prednisone (Prednisone), 2 TAB PO DAILY Tamsulosin HCl (Tamsulosin HCl), 0.4 MG PO QPM Theophylline (Theophylline ER), 450 MG PO BID Umeclidinium [place] (Incruse Ellipta), 1 PUFF PO DAILY Scheduled PRN Albuterol Hfa (Ventolin Hfa), 2 PUFFS INH Q6H PRN for SOB/Wheezing Ipratropium-Albuterol (Duoneb), 1 TREATMENT INH QID PRN for RN Allergies Coded Allergies: No Known Allergies (Unverified , 05/07/17) Physical Exam Vital Signs Date Time Temp Pulse Resp B/P (MAP) Pulse Ox O2 Delivery O2 Flow Rate FiO2 05/07/17 16:44 76 18 162/94 95 Room Air 05/07/17 14:35 36.3 87 20 141/84 96 Room Air Physical Exam GENERAL: Sitting up in bed, alert, well nourished, in moderate distress, holding abdomen, non-toxic EYE EXAM: normal conjunctiva. OROPHARYNX: no exudate, no erythema, lips, buccal mucosa, and tongue normal and mucous membranes are moist NECK: supple, no nuchal rigidity, no adenopathy, non-tender LUNGS: Diffuse wheezing bilaterally. Normal chest wall mechanics HEART: no murmurs, S1 normal and S2 normal ABDOMEN: abdomen distended, tender, hypoactive bowel sounds, no masses, no rebound or guarding. BACK: Back is symmetrical on inspection and there is no deformity, no midline tenderness, no CVA tenderness. SKIN: no rashes and no bruising UPPER EXTREMITIES: upper extremities are grossly normal. LOWER EXTREMITIES: No pitting edema. NEURO EXAM: Normal sensorium, cranial nerves II-XII grossly intact, normal speech, no gross weakness of arms, no gross weakness of legs. Medical Decision & Procedures ER Provider Diagnostic Interpretation: Radiology results as stated below per my review and the radiologist's interpretation: ABD/PELVIS IV CONTRAST ONLY CLINICAL HISTORY: 67 years-old Male presenting with abd pain ? sbo, bloating, decreased bowel sounds. TECHNIQUE: Multidetector CT of the abdomen and pelvis was performed after the administration of intravenous contrast. IV contrast: 95 mL of Optiray 320. A dose lowering technique was used consistent with the principles of ALARA (as low as reasonably achievable). COMPARISON: 12/11/2016. CT DOSE (mGy.cm): The estimated cumulative dose is 280.68 mGy.cm. 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 Lung bases: Emphysema. Bandlike opacities at the right lung base likely scarring. Solid 4 mm nodule at the right lower lobe (series 3 image 7). Multifocal subsegmental bronchial filling defects likely mucous plugging. Normal heart size. No pericardial or pleural effusion. Liver: Normal morphology. No liver lesion. Patent hepatic vasculature. Biliary: Mild diffuse intrahepatic biliary ductal dilatation similar to prior exam, which affects the right lobe to the greatest degree. No convincing evidence of extrahepatic biliary ductal dilatation. Normal gallbladder. Pancreas: Multifocal coarse parenchymal calcifications suggest a history of chronic pancreatitis. Mild pancreatic ductal dilatation unchanged from prior. Focal cystic lesion in the uncinate process/pancreatic head now measures 1.8 x 1.4 cm, previously 2.0 x 1.8 cm, essentially unchanged from prior. Spleen: Normal. Adrenal glands: Normal. Kidneys and ureters: Multiple hypodensities in the kidneys bilaterally likely simple cysts. No hydronephrosis. Renal vascular calcification noted. No nephrolithiasis. Ureters normal. Bladder: Normal. Pelvic organs: Prostate enlargement likely secondary to benign prostatic hyperplasia. Bowel: Marked distention of colon with gas and stool similar to prior exam. This primarily affects the cecum through the transverse colon. Wall thickening of the splenic flexure extends through the sigmoid colon. This is associated with mild pericolonic inflammatory change. This is fairly similar to the prior exam although this segment of colon is not as distended as on prior. Small bowel unremarkable. Peritoneal cavity: Small amount of free fluid in the pelvis. No free intraperitoneal gas. Lymph nodes: No enlarged lymph nodes in the abdomen or pelvis. Vasculature: Atherosclerosis of the normal caliber abdominal aorta. IVC patent. Abdominal wall: Fat-containing left inguinal hernia. Postsurgical changes of right inguinal hernia repair. Musculoskeletal: Degenerative changes of the spine. IMPRESSION: 1. Colonic wall thickening and mild pericolonic inflammatory changes extending from the splenic flexure through the sigmoid colon most consistent with stercoral colitis. Chronic marked distention of cecum through the transverse colon with gas and stool. 2. Emphysema. 3. Solid 4 mm pulmonary nodule in the right lower lobe. Follow-up per [place] Society 2017 recommendations. 4. 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 Persistent mild hepatic ductal dilatation. One-year follow-up MRI is recommended to ensure stability of this lesion. 5. Stable mild intrahepatic biliary ductal dilatation, which may be secondary to the presence of the pancreatic head lesion. 6. Small amount of pelvic ascites may be reactive to the patient's presumed stercoral colitis. Please refer to below summary of Fleischner Society 2017 recommendations for follow-up of incidental CT nodules (H Radha et al. Guidelines for management of incidental pulmonary nodules detected on CT images: From the Fleischner Society 2017. Radiology 2017; 284: 228-243.) SOLID NODULES Single nodule; size < 6 mm * Low risk patients: No routine follow-up * High risk patients: Optional CT at 12 months Single nodule; size 6-8 mm * Low risk patients: CT at 6-12 months, then consider CT at 18-24 months * High risk patients: CT at 6-12 months, then at 18-24 months Single nodule; size > 8 mm * Either low or high risk patients: Considered CT at 3 months, PET/CT, or tissue sampling Multiple nodules; size < 6 mm * Low risk patients: No routine follow up * High risk patients: Optional CT at 12 months Multiple nodules; size 6-8 mm * Low risk patients: CT at 3-6 months, then consider CT at 18-24 months * High risk patients: CT at 3-6 months, then at 18-24 months Multiple nodules; size > 8 mm * Low risk patients: CT at 3-6 months, then consider at 18-24 months * High risk patients: CT at 3-6 months, then at 18-24 months Note: These guidelines apply to incidental nodules. These guidelines do not apply to patients younger than 35 years, immunocompromised patients, or patients with cancer. * Low risk patients: Minimal or absent history of smoking and/or other known risk factors * High risk patients: History of smoking, exposure to other carcinogens, emphysema, fibrosis, upper lobe location, family history of lung cancer, etc. * If a nodule up to 8 mm is partly solid or is ground glass, further follow-up is required after 24 months to exclude possible slow growing adenocarcinoma. SUBSOLID NODULES Single ground-glass nodule * Nodule size < 6 mm: No routine follow-up * Nodule size > or = 6 mm: CT at 6-12 months to confirm persistence, then CT every 2 years until 5 years Single part-solid nodule * Nodule size < 6 mm: No routine follow-up * Nodules size > or = 6 mm: CT at 3-6 months to confirm persistence. If unchanged and solid component remains < 6 mm, annual CT should be performed for 5 years Multiple nodules * Nodule size < 6 mm: CT at 3-6 months. If stable, consider CT at 2 and 4 years. * Nodules size > or = 6 mm: CT at 3-6 months. Subsequent management based on the most suspicious nodule(s) Electronically signed by: Darius Cade M.D. 05/07/2017 4:14 PM Dictated Date/Time: 05/07/2017 4:03 PM Laboratory Results 05/07/17 15:10 Red Blood Count 5.16, Mean Corpuscular Volume 90.3, Mean Corpuscular Hemoglobin 31.0, Mean Corpuscular Hemoglobin Concent 34.3, Mean Platelet Volume 8.5, Neutrophils (%) (Auto) 90.8, Lymphocytes (%) (Auto) 6.7, Monocytes (%) (Auto) 2.1, Eosinophils (%) (Auto) 0.0, Basophils (%) (Auto) 0.1, Neutrophils # (Auto) 11.72, Lymphocytes # (Auto) 0.86, Monocytes # (Auto) 0.27, Eosinophils # (Auto) 0.00, Basophils # (Auto) 0.01 05/07/17 15:10 Test 05/07/17 15:10 05/07/17 15:21 05/07/17 15:45 White Blood Count 12.90 K/uL (4.8-10.8) Red Blood Count 5.16 M/uL (4.7-6.1) Hemoglobin 16.0 g/dL (14.0-18.0) Hematocrit 46.6 % (42-52) Mean Corpuscular Volume 90.3 fL (80-100) Mean Corpuscular Hemoglobin 31.0 pg (25-34) Mean Corpuscular Hemoglobin Concent 34.3 g/dl (32-36) Platelet Count 420 K/uL (130-400) Mean Platelet Volume 8.5 fL (7.4-10.4) Neutrophils (%) (Auto) 90.8 % Lymphocytes (%) (Auto) 6.7 % Monocytes (%) (Auto) 2.1 % Eosinophils (%) (Auto) 0.0 % Basophils (%) (Auto) 0.1 % Neutrophils # (Auto) 11.72 K/uL (1.4-6.5) Lymphocytes # (Auto) 0.86 K/uL (1.2-3.4) Monocytes # (Auto) 0.27 K/uL (0.11-0.59) Eosinophils # (Auto) 0.00 K/uL (0-0.5) Basophils # (Auto) 0.01 K/uL (0-0.2) RDW Standard Deviation 44.6 fL (36.4-46.3) RDW Coefficient of Variation 13.5 % (11.5-14.5) Immature Granulocyte % (Auto) 0.3 % Immature Granulocyte # (Auto) 0.04 K/uL (0.00-0.02) Est Creatinine Clear Calc Drug Dose 57.6 ml/min Estimated GFR () 60.2 Estimated GFR (Non- 51.9 BUN/Creatinine Ratio 17.2 (10-20) Calcium Level 9.3 mg/dl (8.5-10.1) Total Bilirubin 0.7 mg/dl (0.2-1) Direct Bilirubin 0.2 mg/dl (0-0.2) Aspartate Amino Transf (AST/SGOT) 22 U/L (15-37) Alanine Aminotransferase (ALT/SGPT) 32 U/L (12-78) Alkaline Phosphatase 76 U/L (45-117) Total Protein 7.2 gm/dl (6.4-8.2) Albumin 3.5 gm/dl (3.4-5.0) Lipase 440 U/L (73-393) Bedside Hemoglobin 15.3 g/dl (14.0-18.0) Bedside Hematocrit 45 % (42-52) Bedside Sodium 137 mEq/L (135-144) Bedside Potassium 4.4 mEq/L (3.3-5.0) Bedside Chloride 100 mEq/L (101-112) Bedside Total CO2 26 mEq/l (24-31) Anion Gap 17.0 mmol/L (16-25) Bedside Blood Urea Nitrogen 25 mg/dl (7-18) Bedside Creatinine 1.3 mg/dl (0.6-1.3) Bedside Glucose (other) 155 mg/dl (70-99) Bedside Ionized Calcium (Alize) 1.19 mmol/l (1.12-1.32) Urine Color DK YELLOW Urine Appearance CLEAR (CLEAR) Urine pH 5.5 (4.5-7.5) Urine Specific [place] 1.024 (1.000-1.030) Urine Protein NEG (NEG) Urine Glucose (UA) NEG (NEG) Urine Ketones TRACE (NEG) Urine Occult Blood NEG (NEG) Urine Nitrite NEG (NEG) Urine Bilirubin NEG (NEG) Urine Urobilinogen NEG (NEG) Urine Leukocyte Esterase TRACE (NEG) Urine WBC (Auto) 0 /hpf (0-5) Urine RBC (Auto) 0-4 /hpf (0-4) Urine Hyaline Casts (Auto) 0 /lpf (0-5) Urine Epithelial Cells (Auto) 0-5 /lpf (0-5) Urine Bacteria (Auto) NEG (NEG) Urine Crystals CALCIUM OXALATE (NONE Laboratory results per my review. Medications Administered Medications (Trade) Dose Ordered Sig/Uma Route Start Time Stop Time Status Last Admin Dose Admin Morphine Sulfate (MoRPHine SULFATE INJ) 6 mg NOW STAT IV 05/07/17 14:53 05/07/17 14:54 DC 05/07/17 15:40 6 MG Ondansetron HCl (Zofran Inj) 4 mg NOW STAT IV 05/07/17 14:53 05/07/17 14:54 DC 05/07/17 15:39 4 MG ED Course ED COURSE: Vital signs were reviewed and showed hypertensive. The patients medical record was reviewed The above diagnostic studies were performed and reviewed. ED treatments and interventions as stated above. 1441: The patient was evaluated in room B6. A complete history and physical examination was performed. 1453: Zofran 4 mg IV, Morphine sulfate 6 mg IV 1525: The patient is feeling better after pain medications. 1624: I spoke with Dr. Anderson of general surgery. We discussed the patient' s case and he recommended having the hospitalist evaluate for further management. 1633: I spoke with Dr. Sanchez. We discussed the patient's case. The patient will be evaluated by the [facility] for further management. 1636: Upon reevaluation, the patient is resting comfortably. I discussed my findings with the patient and he understands and agrees with the treatment plan. Based on the patients age, coexisting illnesses, exam and lab findings the decision to treat as an inpatient was made. The patient remained stable while under my care. The patient will be evaluated for further management. Medical Decision Differential diagnoses includes but is not limited to gastritis, peptic ulcer disease, GERD, gallbladder disease, pancreatitis, small bowel obstruction, acute coronary syndrome, pericarditis, ischemic bowel, irritable bowel disease, irritable bowel syndrome, appendicitis, diverticulitis, malignancy, hernia, urinary tract infection, torsion, perforation, trauma, infectious. Patient is a 67-year-old male with no previous abdominal surgeries that presents to ER for abdominal pain associated with bloating. He has not had a bowel movement in 4 days and is no longer passing gas. Doesn't nausea. Similar episode back in November. CT of the abdomen and pelvis shows stercoral colitis. Patient was given IV morphine and fluids. CBC shows a mild leukocytosis. BMP all LFTs and bilirubin was unremarkable. Lipase is slightly elevated. UA was negative. Patient was updated in regards to his findings. Discussed with general surgery. Discussed with internal medicine. Patient was admitted for a further workup. Medication Reconcilliation Current Medication List: was personally reviewed by me Blood Pressure Screening Patient's blood pressure: Elevated blood pressure Blood pressure disposition: Elevated BP felt to be situational Consults Time Called: 1621 Consulting Physician: Dr. Anderson Returned Call: [address] Anderson of general surgery. We discussed the patient's case and he recommended having the hospitalist evaluate for further management. Additional Consults: Time Called: 1629 Consulted Physician: Dr. Sanchez Returned Call: 1634 Additional Comments: I spoke with Dr. Sanchez. We discussed the patient's case. The patient will be evaluated by the [facility] for further management. Impression Primary Impression: stercoral colitis Scribe Attestation The scribe's documentation has been prepared under my direction and personally reviewed by me in its entirety. I confirm that the note above accurately reflects all work, treatment, procedures, and medical decision making performed by me. Departure Information Dispostion Being Evaluated By Hospitalist Referrals Paresh LINDSEY (PCP) Patient Instructions My [facility]
[2017-05-07] MEDS ORDERED: NITROGLYCERIN 0.4 MG SL PER TAB CHARGE SL PRN (18:00)
[2017-05-07] MEDS ORDERED: ALBUTEROL HFA 8 GM INHALER INH PRN (18:00)
[2017-05-07] MEDS ORDERED: MAGNESIUM HYDROXIDE SUSP 30 ML UDC PO PRN (18:00)
[2017-05-07] MEDS ORDERED: ONDANSETRON INJ 2 MG/ML 2 ML VIAL IV PRN (18:00)
[2017-05-07] MEDS ORDERED: POLYETHYLENE (MIRALAX) 17 GM PACK PO PRN (18:00)
[2017-05-07] MEDS ORDERED: ALUMINUM/MAGNESIUM/SIMETH (MAALOX MAX) 30 ML UDC PO PRN (18:00)
[2017-05-07] MEDS ORDERED: ALBUT/IPRATROP 3MG/0.5MG NEB 3 ML VIAL INH PRN (18:00)
[2017-05-07] MEDS ORDERED: ACETAMINOPHEN 325 MG TAB PO PRN (18:00)
--- NOTE | 2017-05-07 18:21 | History and Physical ---
History & Physical Date & Time of Service: May 07, 2017 at 18:00 Chief Complaint: Abd. Pain, Bloating, Decreased Bowel Sounds Primary Care Physician: Paresh LINDSEY History of Present Illness Source: patient This is a 67 y/o M with a history of constipation/ stercoral colitis, cad s/o stent, htn, bph, ipmn, who presents with abdominal pain, distension and constipation x 4 days. He reports that he has had a few of these instances since his 's. He had an admission earlier this year for the same. No surgical intervention was necessary. Currently he reports that his pain is about 8/10. He did take milk of magnesium the last few days along with docusate with no relief. He has had no BM's for 4 days. He reports some nausea, but no vomiting. He is also not passing any gas. Past Medical/Surgical History Medical Problems: (1) Coronary artery disease Status: Chronic (2) History of anxiety Status: Chronic (3) History of asthma Status: Chronic (4) History of BPH Status: Chronic (5) History of colon polyps Permanent Comment: family hx colon Ca + personal history colonic polyps Status: Chronic (6) History of COPD Status: Chronic (7) History of depression Status: Chronic (8) History of hepatitis C Status: Chronic (9) History of hypertension Status: Chronic (10) History of PTSD Status: Chronic (11) Tobacco use Status: Chronic Surgical Problems: (1) Status post arthroscopic knee surgery Status: Resolved (2) Status post hemorrhoidectomy Status: Resolved (3) Status post hernia repair Status: Resolved Family History Cancer Heart disease Hypertension Stroke Social History Smoking Status: Former Smoker Alcohol Use: occasionally Marital Status: single Housing status: other (prisoner) Occupational Status: other (incarcerated) Immunizations History of Influenza Vaccine: No History of Tetanus Vaccine?: UTD History of Pneumococcal: Unknown History of Hepatitis B Vaccine: Unknown Multi-Drug Resistant Organisms History of MDRO: No Allergies Coded Allergies: No Known Allergies (Unverified , 05/07/17) Home Medications Scheduled Amlodipine (Norvasc), 10 MG PO QAM Amoxicillin & Pot Clavulanate (Augmentin 875-125 mg), 1 TAB PO BID Aspirin (Aspir-Low), 81 MG PO QAM Calcium Polycarbophil (Fibercon), 625 MG PO QAM Carvedilol (Coreg), 50 MG PO BID Clonidine Hcl (Catapres), 0.4 MG PO BID Docusate Sodium (Docusate Sodium), 100 MG PO BID Doxepin (Sinequan), 25 MG PO QAM Doxepin Hcl (Doxepin), 75 MG PO QPM Doxepin Hcl (Doxepin), 100 MG PO QPM Fluticasone Prop/Salmeterol (Advair Diskus 500/50 60 Dose), 1 PUFF INH BID Nitroglycerin (Nitrostat), 0.4 MG SL PRN Polyethylene (Miralax), 17 GM PO DAILY Prednisone (Prednisone), 2 TAB PO DAILY Tamsulosin HCl (Tamsulosin HCl), 0.4 MG PO QPM Theophylline (Theophylline ER), 450 MG PO BID Umeclidinium [place] (Incruse Ellipta), 1 PUFF PO DAILY Scheduled PRN Albuterol Hfa (Ventolin Hfa), 2 PUFFS INH Q6H PRN for SOB/Wheezing Ipratropium-Albuterol (Duoneb), 1 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 Constitutional: + chills Respiratory: + wheezing, No cough, No sputum, No shortness of breath, No dyspnea on exertion, No dyspnea at rest Cardiovascular: No chest pain, No edema Abdomen: + pain, + nausea, + constipation Genitourinary - Male: No hematuria, No dysuria Physical Exam Vital Signs Date Time Temp Pulse Resp B/P (MAP) Pulse Ox O2 Delivery O2 Flow Rate FiO2 05/07/17 16:44 76 18 162/94 95 Room Air 05/07/17 14:35 36.3 87 20 141/84 96 Room Air General Appearance: + mild distress Head: normocephalic, atraumatic ENT: hearing grossly normal Neck: supple, thyroid normal Respiratory/Chest: no respiratory distress, no accessory muscle use, + rales, + wheezing Cardiovascular: regular rate, rhythm, no edema, no murmur Abdomen/GI: + tenderness, + abnormal bowel sounds (hypoactive), + distended, + pertinent finding (no guarding) Back: normal inspection, no CVA tenderness Extremities/Musculoskelatal: normal inspection, no calf tenderness, no pedal edema Neurologic/Psych: no motor/sensory deficits, alert, normal mood/affect Diagnostics Laboratory Results Results Past 24 Hours Test 05/07/17 15:10 05/07/17 15:21 05/07/17 15:45 Range/Units White Blood Count 12.90 4.8-10.8 K/uL Red Blood Count 5.16 4.7-6.1 M/uL Hemoglobin 16.0 14.0-18.0 g/dL Hematocrit 46.6 42-52 % Mean Corpuscular Volume 90.3 80-100 fL Mean Corpuscular Hemoglobin 31.0 25-34 pg Mean Corpuscular Hemoglobin Concent 34.3 32-36 g/dl Platelet Count 420 130-400 K/uL Mean Platelet Volume 8.5 7.4-10.4 fL Neutrophils (%) (Auto) 90.8 % Lymphocytes (%) (Auto) 6.7 % Monocytes (%) (Auto) 2.1 % Eosinophils (%) (Auto) 0.0 % Basophils (%) (Auto) 0.1 % Neutrophils # (Auto) 11.72 1.4-6.5 K/uL Lymphocytes # (Auto) 0.86 1.2-3.4 K/uL Monocytes # (Auto) 0.27 0.11-0.59 K/uL Eosinophils # (Auto) 0.00 0-0.5 K/uL Basophils # (Auto) 0.01 0-0.2 K/uL RDW Standard Deviation 44.6 36.4-46.3 fL RDW Coefficient of Variation 13.5 11.5-14.5 % Immature Granulocyte % (Auto) 0.3 % Immature Granulocyte # (Auto) 0.04 0.00-0.02 K/uL Sodium Level 136 136-145 mmol/L Potassium Level 4.4 3.5-5.1 mmol/L Chloride Level 102 98-107 mmol/L Carbon Dioxide Level 27 21-32 mmol/L Anion Gap 7.0 17.0 16-25 mmol/L Blood Urea Nitrogen 24 7-18 mg/dl Creatinine 1.41 0.60-1.40 mg/dl Est Creatinine Clear Calc Drug Dose 57.6 ml/min Estimated GFR () 60.2 Estimated GFR (Non- 51.9 BUN/Creatinine Ratio 17.2 10-20 Random Glucose 153 70-99 mg/dl Calcium Level 9.3 8.5-10.1 mg/dl Total Bilirubin 0.7 0.2-1 mg/dl Direct Bilirubin 0.2 0-0.2 mg/dl Aspartate Amino Transf (AST/SGOT) 22 15-37 U/L Alanine Aminotransferase (ALT/SGPT) 32 12-78 U/L Alkaline Phosphatase 76 45-117 U/L Total Protein 7.2 6.4-8.2 gm/dl Albumin 3.5 3.4-5.0 gm/dl Lipase 440 73-393 U/L Bedside Hemoglobin 15.3 14.0-18.0 g/dl Bedside Hematocrit 45 42-52 % Bedside Sodium 137 135-144 mEq/L Bedside Potassium 4.4 3.3-5.0 mEq/L Bedside Chloride 100 101-112 mEq/L Bedside Total CO2 26 24-31 mEq/l Bedside Blood Urea Nitrogen 25 7-18 mg/dl Bedside Creatinine 1.3 0.6-1.3 mg/dl Bedside Glucose (other) 155 70-99 mg/dl Bedside Ionized Calcium (Alize) 1.19 1.12-1.32 mmol/l Urine Color DK YELLOW Urine Appearance CLEAR CLEAR Urine pH 5.5 4.5-7.5 Urine Specific [place] 1.024 1.000-1.030 Urine Protein NEG NEG Urine Glucose (UA) NEG NEG Urine Ketones TRACE NEG Urine Occult Blood NEG NEG Urine Nitrite NEG NEG Urine Bilirubin NEG NEG Urine Urobilinogen NEG NEG Urine Leukocyte Esterase TRACE NEG Urine WBC (Auto) 0 0-5 /hpf Urine RBC (Auto) 0-4 0-4 /hpf Urine Hyaline Casts (Auto) 0 0-5 /lpf Urine Epithelial Cells (Auto) 0-5 0-5 /lpf Urine Bacteria (Auto) NEG NEG Urine Crystals CALCIUM OXALATE NONE PRSENT Impression Assessment and Plan This is a 67 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 Patient will be admitted for fecal disimpaction. He did have a colonoscopy earlier in the year that did not reveal causes of mechanical obstruction (masses/strictures etc). Stercoral colitis/fecal impaction as noted on CT, no transition point noted Enema x 1 Zosyn IV day 1 repeat KUB serial abdominal exams +/- KUB General Surgery was consulted in the ER and recommended eval by hospitalist. Will remain NPO ROSELYN IV Fluids, NSS Repeat BMP AM Severe baseline COPD Continue duonebs, advair, ellipta Continue Prednisone CAD s/p Stent, HTN Aspirin, Coreg, Norvasc, Clonidine BPH Tamsulosin IPMN- stable Was evaluated by GI outpatient after last admission. DVT Enoxaparin Code Full Resident Physician Supervision Note: I interviewed and examined the patient. Discussed with Dr. Tanner and agree with findings and plan as documented in the note. Any exceptions or clarifications are listed here: None Documented By: Richard Marx abdominal pain, bloating and constipation abdomen distended moderate diffuse tender no rigidity CT noted fecal impaction/stercoral colitis - as above VTE Prophylaxis VTE Risk Assessment Done? Y/N: Yes Risk Level: Moderate
[2017-05-07 18:42] VITALS: BP 177/75; PULSE 76; TEMP 37.1; O2SAT 92
[2017-05-07] MEDS ORDERED: TAP WATER ENEMA PR ONE (18:45)
[2017-05-07 18:49] VITALS: BP 177/75; PULSE 76; TEMP 37.1; Ht 185.4 cm; Wt 78.0 kg
[2017-05-07] MEDS ORDERED: PIPERACILL/TAZOBAC IV 3.375 GM in DEXTROSE 5% 100ML IV ONE (19:00)
[2017-05-07] MEDS ORDERED: PIPERACILL/TAZOBAC CONSULT ACTIVE PRN (19:15)
[2017-05-07 19:33] LABS: INR 1.1 (0.9-1.1); PROTHROMBIN TIME (PATIENT) 11.4 SECONDS (9.0-12.0)
[2017-05-07] MEDS: SODIUM CHLORIDE 0.9% 1000ML 1,000 ML IV SCH (19:45)
[2017-05-07] MEDS ORDERED: DOXEPIN HCL 75 MG CAP PO SCH (21:00)
[2017-05-07] MEDS ORDERED: DOXEPIN HCL 50 MG CAP PO SCH (21:00)
[2017-05-07] MEDS ORDERED: TAMSULOSIN HCL 0.4 MG CAP PO SCH (21:00)
[2017-05-07] MEDS ORDERED: ENOXAPARIN 40 MG/0.4 ML SYR SQ SCH (21:00)
[2017-05-07] MEDS ORDERED: NURSING VERBAL MED ORDER ONE (21:15)
[2017-05-07 21:30] VITALS: BP 129/79
[2017-05-07] MEDS ORDERED: KETOROLAC TROMETHAMINE 15 MG/ML VIAL IV. ONE (21:30)
[2017-05-07] MEDS: FLUTICASONE/SALMETEROL (ADVAIR) 500/50 INH 14 PUFF INH SCH (21:41)
[2017-05-07] MEDS: CARVEDILOL 25 MG TAB PO SCH (21:49)
[2017-05-07] MEDS: THEOPHYLLINE 300MG EXTENDED REL TAB PO SCH (21:50)
[2017-05-07] MEDS: CLONIDINE HCL 0.1 MG TAB PO SCH (21:51)
[2017-05-07 23:39] VITALS: BP 107/61; PULSE 71; TEMP 36.7; O2SAT 95
[2017-05-07] MEDS: PIPERACILL/TAZOBAC IV 3.375 GM in DEXTROSE 5% 100ML 100 ML IV SCH (23:58)
[2017-05-08] MEDS: SODIUM CHLORIDE 0.9% 1000ML 1,000 ML IV SCH ×2 (04:46→13:06)
[2017-05-08 07:13] LABS: BASO % 0.2 %; BASO ABS # 0.02 K/uL (0-0.2); COMPLETE YES; EOS % 0.1 %; HEMATOCRIT 39.5 % (42-52); IG% 0.3 %; LYMPH % 15.4 %; LYMPH ABS # 1.78 K/uL (1.2-3.4); MEAN CELL VOLUME 90.8 fL (80-100); MEAN CORPUSCULAR HEMOGLOBIN 30.6 pg (25-34); MEAN CORPUSCULAR HGB CONC 33.7 g/dl (32-36); MEAN PLATELET VOLUME 8.3 fL (7.4-10.4); MONO % 9.1 %; NEUT % 74.9 %; PLATELET COUNT 303 K/uL (130-400); RED BLOOD COUNT 4.35 M/uL (4.7-6.1); WHITE BLOOD COUNT 11.56 K/uL (4.8-10.8)
[2017-05-08 07:17] VITALS: BP 125/72; PULSE 65; TEMP 36.7; O2SAT 94
[2017-05-08 07:33] LABS: BUN/CREATININE RATIO 20.7 (10-20); CREATININE 1.22 mg/dl (0.60-1.40)
[2017-05-08] MEDS ORDERED: AMLODIPINE BESYLATE 5 MG TAB PO SCH (09:00)
[2017-05-08] MEDS ORDERED: ASPIRIN 81 MG ECTAB PO SCH (09:00)
[2017-05-08] MEDS ORDERED: DOXEPIN HCL 25 MG CAP PO SCH (09:00)
[2017-05-08] MEDS ORDERED: POLYETHYLENE (MIRALAX) 17 GM PACK PO SCH (09:00)
[2017-05-08] MEDS: PIPERACILL/TAZOBAC IV 3.375 GM in DEXTROSE 5% 100ML 100 ML IV SCH (09:06)
[2017-05-08] MEDS: FLUTICASONE/SALMETEROL (ADVAIR) 500/50 INH 14 PUFF INH SCH (09:07)
[2017-05-08] MEDS: CLONIDINE HCL 0.1 MG TAB PO SCH (09:07)
[2017-05-08] MEDS: THEOPHYLLINE 300MG EXTENDED REL TAB PO SCH (09:09)
[2017-05-08] MEDS: CARVEDILOL 25 MG TAB PO SCH (10:51)
--- NOTE | 2017-05-08 13:41 | Discharge Instructions ---
Discharge Instructions Date of Service May 08, 2017. Admission Reason for Admission: Stercoral Colitis Discharge Discharge Diagnosis / Problem: Fecal Impaction Discharge Goals Goal(s): Decrease discomfort, Improve function, Therapeutic intervention Activity Recommendations Activity Limitations: resume your previous activity Lifting Limitations: none Exercise/Sports Limitations: none May Resume Sexual Activity: when tolerated Shower/Bathe: no limitations . Instructions / Follow-Up Instructions / Follow-Up Dear Mr. Lawrence, You were admitted due to significant abdominal pain and distention. You were found to have significant fecal impaction on your CT scan. You were able to have 2 bowel movements since being in the hospital which greatly reduced your distention and abdominal pain. In an effort to prevent future recurrences of fecal impaction, we would like you to take miralax once daily and up to 4 times a day if you have not had a bowel movement on a given day. Your goal will be to have atleast one BM daily. Stop the miralax for a day or two if you have diarrhea. You may also continue docusate. You will also take an additional few days of Augmentin. Thank you for allowing us to be a part of your care. Current Hospital Diet Patient's current hospital diet: Regular Diet Discharge Diet Recommended Diet: Regular Diet Pending Studies Studies pending at discharge: no Medical Emergencies . Who to Call and When: Medical Emergencies: If at any time you feel your situation is an emergency, please call 911 immediately. . Non-Emergent Contact Non-Emergency issues call your: Primary Care Provider . . "Provider Documentation" section prepared by Iza Rebolledo. . VTE Core Measure Inpt VTE Proph given/why not?: Enoxaparin (Lovenox)SQ
[2017-05-08] MEDS ORDERED: AMOX875T PO (13:43)
[2017-05-08 14:17] VITALS: BP 125/72; PULSE 65; TEMP 36.7; O2SAT 94
[2017-05-08] MEDS ORDERED: MRLP17X PO (18:49)
--- NOTE | 2017-05-08 18:52 | Discharge Summary ---
Discharge Summary Date of Service May 08, 2017. Discharge Summary Admission Date: May 07, 2017 at 17:57 Discharge Date: May 08, 2017 Discharge Disposition: Home ([facility]) Principal Diagnosis: fecal impaction, improved Problems/Secondary Diagnoses: chronic constipation Immunizations: Have You Had Influenza Vaccine: No History of Tetanus Vaccine?: UTD History of Pneumococcal: Unknown History of Hepatitis B Vaccine: Unknown Procedures: [~ rep ct add3]] ABD/PELVIS IV CONTRAST ONLY CLINICAL HISTORY: 67 years-old Male presenting with abd pain ? sbo, bloating, decreased bowel sounds. TECHNIQUE: Multidetector CT of the abdomen and pelvis was performed after the administration of intravenous contrast. IV contrast: 95 mL of Optiray 320. A dose lowering technique was used consistent with the principles of ALARA (as low as reasonably achievable). COMPARISON: 12/11/2016. CT DOSE (mGy.cm): The estimated cumulative dose is 280.68 mGy.cm. 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 Lung bases: Emphysema. Bandlike opacities at the right lung base likely scarring. Solid 4 mm nodule at the right lower lobe (series 3 image 7). Multifocal subsegmental bronchial filling defects likely mucous plugging. Normal heart size. No pericardial or pleural effusion. Liver: Normal morphology. No liver lesion. Patent hepatic vasculature. Biliary: Mild diffuse intrahepatic biliary ductal dilatation similar to prior exam, which affects the right lobe to the greatest degree. No convincing evidence of extrahepatic biliary ductal dilatation. Normal gallbladder. Pancreas: Multifocal coarse parenchymal calcifications suggest a history of chronic pancreatitis. Mild pancreatic ductal dilatation unchanged from prior. Focal cystic lesion in the uncinate process/pancreatic head now measures 1.8 x 1.4 cm, previously 2.0 x 1.8 cm, essentially unchanged from prior. Spleen: Normal. Adrenal glands: Normal. Kidneys and ureters: Multiple hypodensities in the kidneys bilaterally likely simple cysts. No hydronephrosis. Renal vascular calcification noted. No nephrolithiasis. Ureters normal. Bladder: Normal. Pelvic organs: Prostate enlargement likely secondary to benign prostatic hyperplasia. Bowel: Marked distention of colon with gas and stool similar to prior exam. This primarily affects the cecum through the transverse colon. Wall thickening of the splenic flexure extends through the sigmoid colon. This is associated with mild pericolonic inflammatory change. This is fairly similar to the prior exam although this segment of colon is not as distended as on prior. Small bowel unremarkable. Peritoneal cavity: Small amount of free fluid in the pelvis. No free intraperitoneal gas. Lymph nodes: No enlarged lymph nodes in the abdomen or pelvis. Vasculature: Atherosclerosis of the normal caliber abdominal aorta. IVC patent. Abdominal wall: Fat-containing left inguinal hernia. Postsurgical changes of right inguinal hernia repair. Musculoskeletal: Degenerative changes of the spine. IMPRESSION: 1. Colonic wall thickening and mild pericolonic inflammatory changes extending from the splenic flexure through the sigmoid colon most consistent with stercoral colitis. Chronic marked distention of cecum through the transverse colon with gas and stool. 2. Emphysema. 3. Solid 4 mm pulmonary nodule in the right lower lobe. Follow-up per [place] Society 2017 recommendations. 4. 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 Persistent mild hepatic ductal dilatation. One-year follow-up MRI is recommended to ensure stability of this lesion. 5. Stable mild intrahepatic biliary ductal dilatation, which may be secondary to the presence of the pancreatic head lesion. 6. Small amount of pelvic ascites may be reactive to the patient's presumed stercoral colitis. Please refer to below summary of Fleischner Society 2017 recommendations for follow-up of incidental CT nodules (H Radha et al. Guidelines for management of incidental pulmonary nodules detected on CT images: From the Fleischner Society 2017. Radiology 2017; 284: 228-243.) SOLID NODULES Single nodule; size < 6 mm * Low risk patients: No routine follow-up * High risk patients: Optional CT at 12 months Single nodule; size 6-8 mm * Low risk patients: CT at 6-12 months, then consider CT at 18-24 months * High risk patients: CT at 6-12 months, then at 18-24 months Single nodule; size > 8 mm * Either low or high risk patients: Considered CT at 3 months, PET/CT, or tissue sampling Multiple nodules; size < 6 mm * Low risk patients: No routine follow up * High risk patients: Optional CT at 12 months Multiple nodules; size 6-8 mm * Low risk patients: CT at 3-6 months, then consider CT at 18-24 months * High risk patients: CT at 3-6 months, then at 18-24 months Multiple nodules; size > 8 mm * Low risk patients: CT at 3-6 months, then consider at 18-24 months * High risk patients: CT at 3-6 months, then at 18-24 months Note: These guidelines apply to incidental nodules. These guidelines do not apply to patients younger than 35 years, immunocompromised patients, or patients with cancer. * Low risk patients: Minimal or absent history of smoking and/or other known risk factors * High risk patients: History of smoking, exposure to other carcinogens, emphysema, fibrosis, upper lobe location, family history of lung cancer, etc. * If a nodule up to 8 mm is partly solid or is ground glass, further follow-up is required after 24 months to exclude possible slow growing adenocarcinoma. SUBSOLID NODULES Single ground-glass nodule * Nodule size < 6 mm: No routine follow-up * Nodule size > or = 6 mm: CT at 6-12 months to confirm persistence, then CT every 2 years until 5 years Single part-solid nodule * Nodule size < 6 mm: No routine follow-up * Nodules size > or = 6 mm: CT at 3-6 months to confirm persistence. If unchanged and solid component remains < 6 mm, annual CT should be performed for 5 years Multiple nodules * Nodule size < 6 mm: CT at 3-6 months. If stable, consider CT at 2 and 4 years. * Nodules size > or = 6 mm: CT at 3-6 months. Subsequent management based on the most suspicious nodule(s) Electronically signed by: Darius Cade M.D. 05/07/2017 4:14 PM Dictated Date/Time: 05/07/2017 4:03 PM Last Resulted CBC 05/08/17 06:53 Red Blood Count 4.35, Mean Corpuscular Volume 90.8, Mean Corpuscular Hemoglobin 30.6, Mean Corpuscular Hemoglobin Concent 33.7, Mean Platelet Volume 8.3, Neutrophils (%) (Auto) 74.9, Lymphocytes (%) (Auto) 15.4, Monocytes (%) (Auto) 9.1, Eosinophils (%) (Auto) 0.1, Basophils (%) (Auto) 0.2, Neutrophils # (Auto) 8.67, Lymphocytes # (Auto) 1.78, Monocytes # (Auto) 1.05, Eosinophils # (Auto) 0.01, Basophils # (Auto) 0.02 Last Resulted BMP 05/08/17 06:53 Medication Reconciliation New Medications: Polyethylene (Miralax) 17 Gm Pow 17 GM PO DAILY, #30 PKT Continued Medications: Albuterol Hfa (Ventolin Hfa) 200 Puffs/86471 Mcg Aers 2 PUFFS INH Q6H PRN for SOB/Wheezing, #1 INHALER Amlodipine (Norvasc) 10 Mg Tab 10 MG PO QAM, TAB Amoxicillin & Pot Clavulanate (Augmentin 875-125 mg) 1 Tab Tab 1 TAB PO BID for 6 Days, #12 TAB (This prescription has been renewed) Aspirin (Aspir-Low) 81 Mg Tab 81 MG PO QAM Calcium Polycarbophil (Fibercon) 625 Mg Tab 625 MG PO QAM, CPLT Carvedilol (Coreg) 25 Mg Tab 50 MG PO BID, TAB Clonidine Hcl (Catapres) 0.2 Mg Tab 0.4 MG PO BID, TAB Docusate Sodium (Docusate Sodium) 100 Mg Tab 100 MG PO BID Doxepin (Sinequan) 25 Mg Cap 25 MG PO QAM, CAP Doxepin Hcl (Doxepin) 75 Mg Cap 75 MG PO QPM, CAP TAKE WITH 100 MG TAB Doxepin Hcl (Doxepin) 100 Mg Cap 100 MG PO QPM, CAP TAKE WITH 75 MG TAB Fluticasone Prop/Salmeterol (Advair Diskus 500/50 60 Dose) 1 Ea Aerp 1 PUFF INH BID, INHALER Ipratropium-Albuterol (Duoneb) 3 Ml Nebu 1 TREATMENT INH QID PRN for RN, INHA Nitroglycerin (Nitrostat) 0.4 Mg Sub 0.4 MG SL PRN, BTL Prednisone (Prednisone) 20 Mg Tab 2 TAB PO DAILY, #5 TAB Tamsulosin HCl (Tamsulosin HCl) 0.4 Mg Cap 0.4 MG PO QPM Theophylline (Theophylline ER) 400 Mg Tabcr 450 MG PO BID Umeclidinium [place] (Incruse Ellipta) 62.5 Mcg/Inh Inh 1 PUFF PO DAILY Discharge Exam Physical Exam: General Appearance: no apparent distress Eyes: EOMI ENT: hearing grossly normal Neck: trachea midline Respiratory/Chest: no respiratory distress, no accessory muscle use Abdomen / GI: soft (far less distended no longer firm nontender) Hospital Course admitted with fecal impaction -initially on zosyn due to concern on wall compromise - no perforation, just for concern for bacterial translocation -had BM - did better, feeling better, examining better, safe/stable for return to [facility] -due to chronic constipation recommended 17g miralax daily SCHEDULED, hold only if loose stools, and goal of 1BM daily. if no BM, then can take up to an additional 2 doses of miralax per day to affect BM. if no BM despite 3 doses of miralax in a day - then should see medical team for evaluation stable for discharge Total Time Spent: Less than 30 minutes This includes examination of the patient, discharge planning, medication reconciliation, and communication with other providers. Discharge Instructions Please refer to the electronic Patient Visit Report (Discharge Instructions) for additional information.
== END 2017-05-08 14:59 | DRG 392 ==
LOC: C.EDB 14:34 → C.MSN 17:57 → ENRESERV 18:08
PROVIDERS: ADMIT Family Medicine; ATTEND Family Medicine
DX: K59.00 Constipation, unspecified (principal); N17.9 Acute kidney failure, unspecified; K52.89 Other specified noninfective gastroenteritis and colitis; I25.10 Atherosclerotic heart disease of native coronary artery without angina pectoris; I10 Essential (primary) hypertension; F32.9 Major depressive disorder, single episode, unspecified; J45.909 Unspecified asthma, uncomplicated; J44.9 Chronic obstructive pulmonary disease, unspecified; B18.2 Chronic viral hepatitis C; N40.1 Benign prostatic hyperplasia with lower urinary tract symptoms; Z79.82 Long term (current) use of aspirin; Z87.891 Personal history of nicotine dependence; Z80.9 Family history of malignant neoplasm, unspecified; Z82.49 Family history of ischemic heart disease and other diseases of the circulatory system

== ENCOUNTER 2019-07-03 16:59 | Observation (INO) ==
--- OUTSIDE RECORDS SUMMARY | 2019-07-03 17:02 | External Medical Summary | Continuity of Care Document ---
:1950 Author Name Juani Sandoval Address Unavailable Unavailable , Care Team Providers Name Role Phone Cable DO Unavailable [email or web address] [email or web address] PCP, UNKNOWN Unavailable Unavailable Assessments Assessed Problems:COPD (chronic obstructive pulmonary disease)Pulmonary emphysema Problems Former smoker (V15.82) (Z87.891) Lung nodule (793.11) (R91.1) COPD (chronic obstructive pulmonary disease) (496) (J44.9) Pulmonary emphysema (492.8) (J43.9) Allergies and Adverse Reactions Allergy history not documented Medications GaviLAX Oral Powder; MIX 1 CAPFUL (17GM) IN 8 OUNCES OF WATER, JUICE, OR TEA AND DRINK DAILY. Start: 21-Apr-2018 Refills: 0 238 GM Bottle Incruse Ellipta 62.5 MCG/INH Inhalation Aerosol Powder Breath Activated; USE 1 INHALATION ONCE DAILY. Start: 21-Apr-2018 Refills: 5 7 Inhaler Pack Milk of Magnesia 1200 MG/15ML Oral Suspension; USE DIRECT ED. Start: 21-Apr-2018 Refills: 0 355 ML Bottle Nitrostat 0.4 MG Sublingual Tablet Subli ngual; PLACE 1 TABLET UNDER THE TONGUE EVERY 5 MINUTES FOR UP TO 3 DOSES NEEDED FOR CHEST PAIN.CALL 911 IF PAIN PERSISTS. Start: 21-Apr-2018 Refills: 5 predniSONE 10 MG Oral Tablet; (2) daily Start: 21-Apr-2018 Refills: 0 Doxepin HCl - 25 MG Oral Capsule Refills: 0 Doxepin HCl - 75 MG Oral Capsule Refills: 0 amLODIPine Bes[place] 10 MG Oral Tablet Refills: 0 Carvedilol 25 MG Oral Tablet Refills: 0 cloNIDine HCl - 0.2 MG Oral Tablet Refills: 0 Colace CAPS Refills: 0 Fiber CAPS Refills: 0 Ipratropium-Albuterol 0.5-2.5 (3) MG/3ML Inhalation Solution Refills: 0 Tamsulosin HCl - 0.4 MG Oral Capsule Refills: 0 Theophylline ER 400 MG Oral Tablet Extended Release 24 Hour Refills: 0 Xopenex HFA 45 MCG/ACT Inhalation Aerosol Refills: 0 Advair Diskus 500-50 MCG/DOSE Inhalation Aerosol Powder [place] th Activated Refills: 0 Procedures Procedures not documented Immunizations Immunizations not documented Social History - Smoking Status Former smoker Interventions Discussion/SummaryI was able to review the patient chest x-ray from 01/20/[address] scan from 01/23/2018. These revealed emphysema with hyperinflation. There was flattening of the hemidiaphragms. Some scarring was noted greater on the right than the left.Clinically the patient is improved. It is still not known with certainty if the patient is taking the theophylline once per day or twice per day. Plan of Treatment Planned Observations Planned Goals not documented Results No Known Results Results not documented Encounters Appointment; Galen Romero DO 21-Apr-2018 13:00 Encounter Diagnosis: Problem not documented Appointment; Galen Romero DO 18-Jul-2018 9:30 Encounter Diagnosis: Problem not documented
[2019-07-03] MEDS ORDERED: SODIUM CHLORIDE 0.9% 1000ML 1,000 ML IV ONE (17:38)
[2019-07-03] MEDS ORDERED: HYDROmorphone INJ 1 MG/ML SYRINGE IV STA (17:38)
[2019-07-03] MEDS ORDERED: ONDANSETRON INJ 2 MG/ML 2 ML VIAL IV STA (17:38)
--- NOTE | 2019-07-03 17:47 | Emergency Department Note ---
History of Present Illness General Chief Complaint: Abdominal Pain Stated Complaint: AB PAIN Source: patient Mode of arrival: ambulatory Limitations: no limitations History of Present Illness Provider Complaint: abdominal pain Onset (ago): 3 day(s) Pain Consistency: constant Location: diffuse Radiation: none Migration to: no migration Severity: similar to previous episodes Maximum Pain Intensity: 10 Current Pain Intensity: 10 Quality: + cramping, + fullness and + sharp Relieved By: + nothing Exacerbated By: + eating and + movement Context: + history of similar episodes (History of ileus and bowel obstruction) Associated Symptoms: + nausea, + chills, + constipation (Last bowel movement 3 days ago) and + anorexia; no vomiting, no diarrhea, no fever, no dysuria, no hematochezia, no hematuria, no syncope, no chest pain and no weakness Treatments prior to arrival: none This 69-year-old male patient presents emergency department today via ambulance from [facility] with complaints of abdominal pain and distention. The patient states "it feels blocked". The patient states last bowel movement was 3 days ago, and was normal. He states since that time, the pain and distention have been progressively worsening. Patient reports terrible pain diffusely, but worse in the upper and right side of the abdomen. He does have a history of ileus and obstruction, most recently 1-1/2 years ago. The patient states he was admitted at that time for management. He denies any fever, chills, body aches, vomiting, diarrhea, recent illness, chest pain, or dyspnea. Patient was able to eat oatmeal and drink for breakfast at approximately 7 AM. Since then, he has been unable to tolerate any food or fluids. Home Medications Home Medications Medication Instructions Recorded Confirmed Type amlodipine 10 mg PO DAILY 07/03/19 07/03/19 History aspirin 81 mg PO DAILY 07/03/19 07/03/19 History atorvastatin 20 mg PO HS 07/03/19 07/03/19 History azithromycin 250 mg PO 3XWK 07/03/19 07/03/19 History calcium polycarbophil [Fiber 625 mg PO DAILY 07/03/19 07/03/19 History Laxative (ca polycarbo)] carvedilol 50 mg PO BID 07/03/19 07/03/19 History clonidine HCl 0.4 mg PO BID 07/03/19 07/03/19 History docusate sodium 100 mg PO BID 07/03/19 07/03/19 History doxepin 25 mg PO DAILY 07/03/19 07/03/19 History doxepin 200 mg PO HS 07/03/19 07/03/19 History fluticasone furoate-vilanterol 1 inh INHALATION DAILY 07/03/19 07/03/19 History [Breo Ellipta] guaifenesin [Mucosa] 400 mg PO QID 07/03/19 07/03/19 History ipratropium-albuterol 3 ml INHALATION QID PRN 07/03/19 07/03/19 History levalbuterol tartrate [Xopenex HFA] 2 inh INHALATION QID PRN 07/03/19 07/03/19 History magnesium hydroxide [Milk of 30 ml PO HS PRN 07/03/19 07/03/19 History Magnesia] nitroglycerin [Nitrostat] 0.4 mg SUBLINGUAL DIRECTED PRN 07/03/19 07/03/19 History polyethylene glycol 3350 17 g PO BID 07/03/19 07/03/19 History tamsulosin 0.8 mg PO HS 07/03/19 07/03/19 History theophylline 450 mg PO BID 07/03/19 07/03/19 History umeclidinium [Incruse Ellipta] 1 inh INHALATION DAILY 07/03/19 07/03/19 History Allergies Allergy/AdvReac Type Severity Reaction Status Date / Time No Known Allergies Allergy Verified 07/03/19 20:06 Past Med/Surg History Medical History Coronary artery disease (Chronic) History of anxiety (Chronic) History of asthma (Chronic) History of BPH (Chronic) History of COPD (Chronic) History of depression (Chronic) History of hepatitis C (Chronic) History of hypertension (Chronic) Pancreatic lesion (Acute) Surgical History Status post arthroscopic knee surgery (Resolved) Status post hemorrhoidectomy (Resolved) Status post hernia repair (Resolved) Social History Preferred Language: Telugu Feels Safe at Home: Yes Smoking Status: Former smoker Review of Systems A total of 10 systems reviewed and were otherwise negative Physical Exam Vital Signs: Vital Signs - 24 hr 07/03/19 17:00 07/03/19 17:06 07/03/19 17:21 Temperature 36.6 C Temperature Source Oral Pulse Rate 65 68 64 Pulse Rate from Sp O2 Sensor 68 65 Pulse Rhythm Regular Respiratory Rate 22 24 19 Respiratory Effort / Characteristics Non-Labored Respiratory Depth Normal Respiratory Patter n Regular Blood Pressure 164/82 H 164/82 H Blood Pressure Wilma n 109 102 Pulse Oximetry 98 96 96 Oxygen Delivery Me thod Room Air Sepsis Recent Feve r Within 48 Hours No Sepsis New/Unexpla ined Change in Men shantel Status No Sepsis Action Take n by Nursing No Action Required 07/03/19 17:30 07/03/19 18:00 07/03/19 19:05 Temperature Temperature Source Pulse Rate 67 74 Pulse Rate from Sp O2 Sensor 76 73 77 Pulse Rhythm Respiratory Rate 20 19 Respiratory Effort / Characteristics Respiratory Depth Respiratory Patter n Blood Pressure Blood Pressure Wilma n Pulse Oximetry 96 90 Oxygen Delivery Me thod Sepsis Recent Feve r Within 48 Hours Sepsis New/Unexpla ined Change in Men shantel Status Sepsis Action Take n by Nursing 07/03/19 20:26 07/03/19 20:30 07/03/19 21:00 Temperature Temperature Source Pulse Rate 87 82 84 Pulse Rate from Sp O2 Sensor 85 82 84 Pulse Rhythm Respiratory Rate 15 19 22 Respiratory Effort / Characteristics Respiratory Depth Respiratory Patter n Blood Pressure 160/80 H 158/79 H 167/92 H Blood Pressure Wilma n 120 119 120 Pulse Oximetry 94 96 91 Oxygen Delivery Me thod Room Air Sepsis Recent Feve r Within 48 Hours Sepsis New/Unexpla ined Change in Men shantel Status Sepsis Action Take n by Nursing Physical Exam: VITALS: Vitals are noted on the nurse's note and reviewed by myself. Vital signs stable. GENERAL: This is a 69-year-old black male, in obvious pain, nondiaphoretic, well-developed well-nourished. SKIN: The skin was without rashes, erythema, edema, or bruising. There is no tenting of the skin. Capillary refill less than 2 seconds. HEAD: Normocephalic atraumatic. EARS: External auditory canals clear, tympanic membranes pearly skelton without erythema or effusion bilaterally. EYES: Pupils equal round and reactive to light and accommodation. Conjunctivae without injection, sclerae without icterus. NOSE: Patent, turbinates without inflammation or discharge. No sinus tenderness. MOUTH: Mucous membranes moist. Tonsils are not enlarged. Pharynx without erythema or exudate. Uvula midline. Airway patent. Tongue does not deviate. NECK: Supple without nuchal rigidity. No lymphadenopathy. HEART: Regular rate and rhythm without murmurs gallops or rubs. LUNGS: Clear to auscultation bilaterally without wheezes, rales or rhonchi. No retractions or accessory muscle use. ABDOMEN: No audible bowel sounds x 4. Tympanic percussion. Abdomen was distended, firm, and diffusely tender. Diffuse guarding. MUSCULOSKELETAL: No muscle atrophy, erythema, or edema noted. Full range of motion without joint tenderness in all extremities. NEURO: Patient was alert and oriented to person place and time. No focal neurological deficits. Course Course The patient was seen and evaluated as above. IV access obtained, labs drawn. Patient medicated with IV fluids, Zofran, Dilaudid. Imaging performed and reviewed by myself and radiologist as above. Labs reviewed by myself. I discussed the findings with the patient at bedside. He was reassessed. Abdomen remains distended and firm, but pain and tenderness has significantly improved. NG tube placed. I did recommend admission. The patient was agreeable. I consulted with the [facility] hospitalist, Dr. Mark. He did agree to see and evaluate the patient. Please see hospitalist dictation regarding ongoing management and care of this patient. Administered Medications Ioversol (Optiray 320 100ml) 94 ml IV ONCE PRN PRN Reason: Interaction Checking Stop: 07/07/19 19:00 Last Admin: 07/03/19 19:02 Dose: 94 ml Documented by: [id number] Discontinued Medications Hydromorphone HCl (Dilaudid) 1 mg IV NOW STA Stop: 07/03/19 17:39 Last Admin: 07/03/19 18:29 Dose: 1 mg Documented by: [id number] Sodium Chloride (Nss 1000ml) 1,000 mls @ 999 mls/hr IV .Q1H1M ONE Stop: 07/03/19 18:38 Last Infusion: 07/03/19 19:57 Dose: 0 mls/hr Documented by: [id number] Admin: 07/03/19 18:31 Dose: 999 mls/hr Documented by: [id number] Ondansetron HCl (Zofran) 4 mg IV NOW STA Stop: 07/03/19 17:39 Last Admin: 07/03/19 18:28 Dose: 4 mg Documented by: [id number] Medical Decision Making Differential Diagnosis + peptic ulcer disease, + biliary pathology, + UTI, + obstruction, + mesenteric ischemia, + aortic pathology, + infections, + inflammatory bowel disease, + renal colic, + torsion (male), + epididymitis (male), + abdominal pain, + appendicitis, + calculus of kidney, + constipation, + diverticulitis, + e ndometriosis, + gastroenteritis, + pancreatitis and + small bowel obstruction Medical Records Attestation: I reviewed the patient's medical records. Home Medications Current Medication List: was personally reviewed by me Laboratory Data Attestation: I reviewed the patient's lab results. No significant leukocytosis, anemia, thrombocytopenia. Renal, hepatic function, and electrolytes without significant abnormality. Coags normal. Troponin negative. Lipase 88. Result diagrams: 07/03/19 18:28 07/03/19 18:28 Lab Results 07/03/19 07/03/19 07/03/19 Range/Units 18:28 18:28 18:28 WBC 10.90 H (4.8-10.8) K/uL RBC 4.38 L (4.7-6.1) M/uL Hgb 14.1 (14.0-18.0) g/dL Hct 39.8 L (42-52) % MCV 90.9 (80-100) fL MCH 32.2 (25-34) pg MCHC 35.4 (32-36) g/dL RDW Std Deviation 44.1 (36.4-46.3) fL RDW Coeff of Santa 13.5 (11.5-14.5) % Plt Count 217 (130-400) K/uL MPV 8.7 (7.4-10.4) fL Immature Gran % (Auto) 0.2 % Neut % (Auto) 82.4 % Lymph % (Auto) 10.9 % [place] % (Auto) 4.3 % Eos % (Auto) 2.1 % Baso % (Auto) 0.1 % Immature Gran # (Auto) 0.02 (0.00-0.02) K/uL Neut # (Auto) 8.98 H (1.4-6.5) K/uL Lymph # (Auto) 1.19 L (1.2-3.4) K/uL [place] # (Auto) 0.47 (0.11-0.59) K/uL Eos # (Auto) 0.23 (0-0.5) K/uL Baso # (Auto) 0.01 (0-0.2) K/uL PT 11.2 (9.0-12.0) Seconds INR 1.1 (0.9-1.1) APTT 27.9 (21.0-31.0) Seconds PTT Ratio 1.0 Sodium 140 (136-145) mmol/L Potassium 3.7 (3.5-5.1) mmol/L Chloride 110 H (98-107) mmol/L Carbon Dioxide 24 (21-32) mmol/L Anion Gap 6.0 (3-11) BUN 13 (7-18) mg/dl Creatinine 1.34 (0.6-1.4) mg/dl POC Creatinine (0.6-1.3) mg/dl Est Cr Clr Drug Dosing 60.5 ml/min Est GFR ( Amer) 63.1 Est GFR (Non-Af Amer) 54.4 BUN/Creatinine Ratio 10.1 (10-20) Glucose 121 H (70-99) mg/dl Calcium 8.9 (8.5-10.1) mg/dl Total Bilirubin 0.6 (0.2-1) mg/dl AST 52 H (15-37) U/L ALT 69 (12-78) U/L Alkaline Phosphatase 88 (45-117) U/L Troponin I < 0.015 (0-0.045) ng/ml Total Protein 7.8 (6.4-8.2) gm/dl Albumin 4.1 (3.4-5.0) gm/dl Globulin 3.7 (2.5-4.0) gm/dl Albumin/Globulin Ratio 1.1 (0.9-2) Lipase 88 (73-393) U/L 07/03/19 Range/Units 18:33 WBC (4.8-10.8) K/uL RBC (4.7-6.1) M/uL Hgb (14.0-18.0) g/dL Hct (42-52) % MCV (80-100) fL MCH (25-34) pg MCHC (32-36) g/dL RDW Std Deviation (36.4-46.3) fL RDW Coeff of Santa (11.5-14.5) % Plt Count (130-400) K/uL MPV (7.4-10.4) fL Immature Gran % (Auto) % Neut % (Auto) % Lymph % (Auto) % [place] % (Auto) % Eos % (Auto) % Baso % (Auto) % Immature Gran # (Auto) (0.00-0.02) K/uL Neut # (Auto) (1.4-6.5) K/uL Lymph # (Auto) (1.2-3.4) K/uL [place] # (Auto) (0.11-0.59) K/uL Eos # (Auto) (0-0.5) K/uL Baso # (Auto) (0-0.2) K/uL PT (9.0-12.0) Seconds INR (0.9-1.1) APTT (21.0-31.0) Seconds PTT Ratio Sodium (136-145) mmol/L Potassium (3.5-5.1) mmol/L Chloride (98-107) mmol/L Carbon Dioxide (21-32) mmol/L Anion Gap (3-11) BUN (7-18) mg/dl Creatinine (0.6-1.4) mg/dl POC Creatinine 1.3 (0.6-1.3) mg/dl Est Cr Clr Drug Dosing ml/min Est GFR ( Amer) Est GFR (Non-Af Amer) BUN/Creatinine Ratio (10-20) Glucose (70-99) mg/dl Calcium (8.5-10.1) mg/dl Total Bilirubin (0.2-1) mg/dl AST (15-37) U/L ALT (12-78) U/L Alkaline Phosphatase (45-117) U/L Troponin I (0-0.045) ng/ml Total Protein (6.4-8.2) gm/dl Albumin (3.4-5.0) gm/dl Globulin (2.5-4.0) gm/dl Albumin/Globulin Ratio (0.9-2) Lipase (73-393) U/L Imaging Data Radiologist's Impression: SINGLE VIEW CHEST CLINICAL HISTORY: Generalized abdominal pain. FINDINGS: An AP, portable, upright chest radiograph is compared to study dated 04/08/2017 and correlated with chest CT dated 01/23/2018. The examination is degraded by portable technique, apical positioning, and patient rotation. The heart is top normal for projection. Advanced emphysema and chronic interstitial thickening are similar to previous. Volume loss in the right lung and rightward shift of mediastinum suggests history of pulmonary resection. Scarring/atelectasis is seen at the lung bases. No airspace consolidation or large pleural effusion is identified. No pneumothorax is seen. The skeletal structures are osteopenic. The bony thorax is grossly intact. IMPRESSION: 1. There is no acute cardiopulmonary abnormality. 2. Advanced emphysematous change is again noted. 3. Volume loss in the right lung suggests previous surgical resection. Clinical correlation will be required. ACT 112: Negative or not required by law. Electronically signed by: Johann Peña M.D. 07/03/2019 6:20 PM A[address]OMEN AND PELVIS CT WITH IV CONTRAST CT DOSE: 328.35 mGy.cm HISTORY: Generalized abdominal pain/distension TECHNIQUE: Multiaxial CT images of the abdomen and pelvis were performed following the use of intravenous contrast. A dose lowering technique was utilized adhering to the principles of ALARA. COMPARISON STUDY: Abdomen and pelvis CT 05/07/2017 and 01/23/2018. FINDINGS: Emphysema and a few scattered linear densities within the lung bases suggestive of scarring. This remains unchanged. No pneumoperitoneum. No pneumatosis. No suspicious lytic or blastic osseous lesions. Small hiatus hernia. Mild periportal edema. No hepatic or splenic masses. Normal gallbladder. The main portal vein is patent. Multiple pancreatic calcifications consistent with chronic pancreatitis. No evidence for acute pancreatitis. The main pancreatic duct is mildly distended measuring up to 4.6 mm. This is similar to the prior study. Increase in size in the 2.0 x 1.8 cm cystic lesion at the pancreatic head. This previously measured 1.8 x 1.4 cm. The adrenal glands are unremarkable. Calcified plaque within the normal caliber abdominal aorta. The bladder is mildly distended but unremarkable. Prior right inguinal hernia repair. Small fat-containing left inguinal hernia. The prostate gland is mildly enlarged. No retroperitoneal lymphadenopathy. Multiple bilateral renal hypodense lesions. These favor cysts. No hydronephrosis. Trace fluid within the right lower quadrant. Large amount of stool throughout the majority of the colon. This is most pronounced within the cecum. The cecum is seen within the left side of the abdomen and is distended up to 12 cm. The majority of the colon is distended excluding the sigmoid colon which is normal in caliber. This has progressed compared to the prior study. Mild thickening within the descending colon has slightly improved. No evidence for a colonic volvulus. Normal appendix. IMPRESSION: 1. Slight improvement in the colonic wall thickening at the descending colon consistent with a stercoral colitis. 2. Progressive marked distention of the majority of the colon most pronounced within the cecum with a large amount of stool seen throughout the colon. No evidence for a volvulus. 3. Emphysema. 4. Increase in size in the 2.0 x 1.8 cm cystic lesion within the pancreatic head. Follow-up nonemergent GI consultation recommended given the increase in size and to exclude the possibility of a mucinous cystic neoplasm of the pancreas. 5. Trace pelvic ascites, unchanged. 6. Mild periportal edema. 7. Additional findings as described above. ACT 112: Negative or not required by law. Electronically signed by: Nahum Michael M.D. 07/03/2019 7:26 PM ECG Data Attestation: I personally reviewed and interpreted this ECG as follows: Indication: abdominal pain Rate (beats per minute): 68 Rhythm: normal sinus Findings: + T-wave inversion (Lateral); no ST depression, no acute ischemic change and no ectopy Comparison ECG Date: from (04/08/2017) Change: the following changes noted (No ST depression) Blood Pressure Blood Pressure Findings: Elevated blood pressure Blood Pressure Disposition: elevated BP felt to be situational MDM Narrative This 69-year-old male patient presents emergency department today for evaluation of abdominal distention, pain, and constipation for the past 3 days. Symptoms have been progressively worsening. He does have a history of ileus and bowel obstruction. The patient has been medically managed in the past. Work-up here in the ED does not show any significant leukocytosis. There is some moderate co nstipation and large amount of stool throughout the majority of the colon, most pronounced within the cecum which is distended. The majority of the colon is extremely distended. No evidence for colonic volvulus. An NG tube was placed to help decompress the abdomen. The patient will be admitted to the medicine service for ongoing management and care of his symptoms. Please see hospitalist dictation. The chart was completed utilizing [employer] Speech voice recognition software. Grammatical errors, random word insertions, pronoun errors, and incomplete sentences are an occasional consequence of this system due to software limitations, ambient noise, and hardware issues. Any formal questions or concerns about the content, text, or information contained within the body of this dictation should be directly addressed to the provider for clarification. Impression & Plan Fecal impaction of colon, Colitis, Pancreatic lesion, Abdominal pain Discharge Plan Visit Data Chief Complaint: Abdominal Pain Stated Complaint: AB PAIN ED Provider: Efrain Hines ED Midlevel Provider: Maria Del Carmen Weeks Discharge Problem: Fecal impaction of colon, Colitis, Pancreatic lesion, Abdominal pain Patient Disposition: Admitted As Inpatient Condition: Good Forms Stand Alone Forms: Call Back Authorization, [facility] Prescriptions Prescriptions: No Action carvedilol 25 mg Tablet 50 mg PO BID RF: 0 atorvastatin 20 mg Tablet 20 mg PO HS RF: 0 ipratropium-albuterol 0.5 mg-3 mg(2.5 mg base)/3 mL Solution For Nebulization 3 ml INHALATION QID PRN (Reason: Shortness Of Breath) RF: 0 azithromycin 250 mg Tablet 250 mg PO 3XWK RF: 0 doxepin 25 mg Capsule 25 mg PO DAILY RF: 0 aspirin 81 mg Tablet,Delayed Release (Dr/Ec) 81 mg PO DAILY RF: 0 clonidine HCl 0.2 mg Tablet 0.4 mg PO BID RF: 0 magnesium hydroxide [Milk of Magnesia] 400 mg/5 mL Suspension 30 ml PO HS PRN (Reason: Constipation) RF: 0 tamsulosin 0.4 mg Capsule 0.8 mg PO HS RF: 0 amlodipine 10 mg Tablet 10 mg PO DAILY RF: 0 doxepin 100 mg Capsule 200 mg PO HS RF: 0 theophylline 450 mg Tablet Extended Release 12 Hr 450 mg PO BID RF: 0 calcium polycarbophil [Fiber Laxative (ca polycarbo)] 625 mg Tablet 625 mg PO DAILY RF: 0 nitroglycerin [Nitrostat] 0.4 mg Tablet, Sublingual 0.4 mg sublingual DIRECTED PRN (Reason: Chest Pain) RF: 0 docusate sodium 100 mg Capsule 100 mg PO BID RF: 0 polyethylene glycol 3350 17 gram/dose Powder 17 g PO BID RF: 0 guaifenesin [Mucosa] 400 mg Tablet 400 mg PO QID RF: 0 levalbuterol tartrate [Xopenex HFA] 45 mcg/actuation Hfa Aerosol Inhaler 2 inh INHALATION QID PRN (Reason: Shortness Of Breath) RF: 0 Breo Ellipta 100-25 mcg/dose Blister With Device 1 inh INHALATION DAILY RF: 0 Incruse Ellipta 62.5 mcg/actuation Blister With Device 1 inh INHALATION DAILY RF: 0 Referrals Referrals: Paresh LINDSEY [Primary Care Provider] - Discharge Problem: Abdominal pain Qualifiers: Abdominal location: generalized Qualified Code(s): R10.84 - Generalized abdominal pain
[2019-07-03 18:41] LABS: Basophils # (auto) 0.01 K/uL (0-0.2); Basophils % (auto) 0.1 %; Eosinophils # (auto) 0.23 K/uL (0-0.5); Eosinophils % (auto) 2.1 %; Hematocrit (blood only) 39.8 % (42-52); Hemoglobin 14.1 g/dL (14.0-18.0); Immature Granulocytes # (auto) 0.02 K/uL (0.00-0.02); Immature Granulocytes % (auto) 0.2 %; Lymphocytes # (auto) 1.19 K/uL (1.2-3.4); Lymphocytes % (auto) 10.9 %; Mean Corpuscular Hemoglobin 32.2 pg (25-34); Mean Corpuscular Hgb Conc 35.4 g/dL (32-36); Mean Corpuscular Volume 90.9 fL (80-100); Mean Platelet Volume 8.7 fL (7.4-10.4); Monocytes # (auto) 0.47 K/uL (0.11-0.59); Monocytes % (auto) 4.3 %; Neutrophils # (auto) 8.98 K/uL (1.4-6.5); Neutrophils % (auto) 82.4 %; Platelet Count 217 K/uL (130-400); RDW Coefficient of Variation 13.5 % (11.5-14.5); RDW Standard Deviation 44.1 fL (36.4-46.3); Red Blood Count 4.38 M/uL (4.7-6.1)
--- NOTE | 2019-07-03 18:44 | XRay Report ---
SINGLE VIEW CHEST CLINICAL HISTORY: Generalized abdominal pain. FINDINGS: An AP, portable, upright chest radiograph is compared to study dated 04/08/2017 and correla amber with chest CT dated 01/23/2018. The examination is degraded by portable technique, apical position ing, and patient rotation. The heart is top normal for projection. Advanced emphysema and chronic int erstitial thickening are similar to previous. Volume loss in the right lung and rightward shift of me diastinum suggests history of pulmonary resection. Scarring/atelectasis is seen at the lung bases. No airspace consolidation or large pleural effusion is identified. No pneumothorax is seen. The skeleta l structures are osteopenic. The bony thorax is grossly intact. IMPRESSION: 1. There is no acute cardiopulmonary abnormality. 2. Advanced emphysematous change is again noted. 3. Volume loss in the right lung suggests previous surgical resection. Clinical correlation will be r equired. ACT 112: Negative or not required by law. Electronically signed by: Johann Peña M.D. 07/03/2019 6:20 PM
[2019-07-03 18:52] LABS: INR 1.1 (0.9-1.1); Partial Thromboplastin Time 27.9 Seconds (21.0-31.0); Prothrombin Time 11.2 Seconds (9.0-12.0)
[2019-07-03 18:57] LABS: Alanine Aminotransferase 69 U/L (12-78); Albumin Level 4.1 gm/dl (3.4-5.0); Aspartate Aminotransferase 52 U/L (15-37); BUN Creatinine Ratio 10.1 (10-20); Blood Urea Nitrogen 13 mg/dl (7-18); Calcium 8.9 mg/dl (8.5-10.1); Carbon Dioxide 24 mmol/L (21-32); Chloride 110 mmol/L (98-107); Creatinine Clr Calc Pharmacy 60.5 ml/min; Est GFR (African American) 63.1; Est GFR (Non-African American) 54.4; Glucose 121 mg/dl (70-99); Lipase 88 U/L (73-393); Potassium 3.7 mmol/L (3.5-5.1); Sodium 140 mmol/L (136-145)
[2019-07-03 19:00] LABS: Albumin Globulin Ratio 1.1 (0.9-2); Alkaline Phosphatase 88 U/L (45-117); Bilirubin,Total 0.6 mg/dl (0.2-1); Globulin 3.7 gm/dl (2.5-4.0); Total Protein 7.8 gm/dl (6.4-8.2); Troponin I < 0.015 ng/ml (0-0.045)
[2019-07-03] MEDS ORDERED: IOVERSOL 100ml IV PRN (19:01)
--- NOTE | 2019-07-03 19:27 | CT Scan Report ---
ABDOMEN AND PELVIS CT WITH IV CONTRAST CT DOSE: 328.35 mGy.cm HISTORY: Generalized abdominal pain/distension TECHNIQUE: Multiaxial CT images of the abdomen and pelvis were performed following the use of intrave nous contrast. A dose lowering technique was utilized adhering to the principles of ALARA. COMPARISON STUDY: Abdomen and pelvis CT 05/07/2017 and 01/23/2018. FINDINGS: Emphysema and a few scattered linear densities within the lung bases suggestive of scarring . This remains unchanged. No pneumoperitoneum. No pneumatosis. No suspicious lytic or blastic osseous lesions. Small hiatus hernia. Mild periportal edema. No hepatic or splenic masses. Normal gallbladde r. The main portal vein is patent. Multiple pancreatic calcifications consistent with chronic pancrea titis. No evidence for acute pancreatitis. The main pancreatic duct is mildly distended measuring up to 4.6 mm. This is similar to the prior study. Increase in size in the 2.0 x 1.8 cm cystic lesion at the pancreatic head. This previously measured 1.8 x 1.4 cm. The adrenal glands are unremarkable. Calc ified plaque within the normal caliber abdominal aorta. The bladder is mildly distended but unremarka ble. Prior right inguinal hernia repair. Small fat-containing left inguinal hernia. The prostate glan d is mildly enlarged. No retroperitoneal lymphadenopathy. Multiple bilateral renal hypodense lesions. These favor cysts. No hydronephrosis. Trace fluid within the right lower quadrant. Large amount of s tool throughout the majority of the colon. This is most pronounced within the cecum. The cecum is see n within the left side of the abdomen and is distended up to 12 cm. The majority of the colon is dist ended excluding the sigmoid colon which is normal in caliber. This has progressed compared to the rochelle or study. Mild thickening within the descending colon has slightly improved. No evidence for a coloni c volvulus. Normal appendix. IMPRESSION: 1. Slight improvement in the colonic wall thickening at the descending colon consistent with a sterco ral colitis. 2. Progressive marked distention of the majority of the colon most pronounced within the cecum with a large amount of stool seen throughout the colon. No evidence for a volvulus. 3. Emphysema. 4. Increase in size in the 2.0 x 1.8 cm cystic lesion within the pancreatic head. Follow-up nonemerge nt GI consultation recommended given the increase in size and to exclude the possibility of a mucinou s cystic neoplasm of the pancreas. 5. Trace pelvic ascites, unchanged. 6. Mild periportal edema. 7. Additional findings as described above. ACT 112: Negative or not required by law. Electronically signed by: Nahum Michael M.D. 07/03/2019 7:26 PM
--- NOTE | 2019-07-03 20:38 | History & Physical Report ---
Date of Service July 03, 2019 Assessment & Plan (1) Fecal impaction of colon: 69-year-old male with a past medical history of coronary artery disease status post PCI 9 years ago, COPD on 3 times weekly Zithromax, hypertension, history of hepatitis C, history of BPH, history of asthma, history of anxiety and depression, and history of ileus/obstruction/Stercoral Colitis most recent episode 1-1/2 years ago. #Stercoral Colitis Patient with a history of recurrent episodes of ileus/obstruction stercoral colitis, first episode occurred in his early 20s, he has had recurrent episodes since, most recently 1-1/2 years ago. These episodes appear to resolve with co nservative therapy, it is unclear the etiology of why these episodes keep recurring. Per the patient he states he has not been taking a stool softener as he was supposed to at the present. Instead he was trying fruits and vegetables and increasing his water intake. He reports his most recent bowel movement was approximately 3 days ago, this is surprising giving his CT scan findings. Regardless the patient is tolerating p.o. intake, produced flatulence while I was in the room, and is stable from all labs and vital sign standpoint. We will admit the patient observation, for monitoring and treatment of his Stercoral Colitis. -Admit to [facility] for observation -LR at 175 mls/hr -MiraLAX every 2 hours untillbm -dulcolax now and prn q6h until bm -Milk of molasses enema q6h or as tolerated until bm -Milk of magnesia q6h or as tolerated until bm -N.p.o. until the patient has a bowel movement -Acetaminophen 650 mg p.o. every 4 hours scheduled -Toradol as needed -Zofran for nausea -BMP/CBC in am #Chronic constipation Patient with a history of chronic constipation, this is likely the inciting event to his current presentation. Patient reports not taking his laxatives and stool softeners as prescribed in the days prior to presentation. He had attempted to manage his chronic constipation with fruits and vegetables and was unsuccessful. Continue constipation meds while hospitalized, consider changing MiraLAX to 4 times daily on discharge. -Milk of magnesia 30 mils p.o. at bedtime -MiraLAX 17 g p.o. twice daily and q2h until bm -Fiber 625 mg p.o. daily -Else as above #Pancreatic lesion Patient with a history of cystic pancreatic lesion first identified in [address] at some point prior to 2016, originally the lesion measured 2.0 x 1.8 cm, repeat imaging in April 2017 demonstrated it was 1.8 x 1.4 cm. Repeat imaging today redemonstrated the lesion demonstrated to be 2.0 x 1.8 cm. After thorough review of the records it appears as if a prior endoscopic ultrasound was performed with biopsy by Dr. Trinh. The biopsy was nondiagnostic says it only contained blood. It appears that the patient follows with in versus an outpatient, will consult [facility] gastroenterology as a courtesy. -Consult [facility] appreciate recommendations #History of COPD Not currently in exacerbation, continue home meds. -Azithromycin 250 mg p.o. 3 times per week -Breo 1 inhalation daily -DuoNebs 4 times daily as needed -Xopenex 2 puffs 4 times daily as needed -Ellipta 1 puff daily -Guaifenesin 400 mg p.o. 4 times daily -Theophylline 450 mg p.o. twice daily #Coronary artery disease Patient with a history of coronary artery disease status post UT 9 years ago with PCI, on statin, antihypertensive and beta-katty. Currently denying chest pain or chest pressure, EKG on admission within normal limits. Continue home medications -Atorvastatin 20 mg p.o. at bedtime -Baby aspirin daily -Carvedilol 50 mg p.o. twice daily -Holding PRN NTG #Hypertension Patient with a history of well-controlled hypertension. Continue home meds. -Amlodipine 10 mg p.o. daily -Carvedilol 50 mg p.o. twice daily -Clonidine 0.4 mg p.o. twice daily #BPH Patient with history of BPH currently well controlled, asymptomatic. -Tamsulosin 0.8 mg p.o. at bedtime #Anxiety Patient with a history of anxiety, currently treated with doxepin. -Doxepin 25 mg p.o. daily -Doxepin 200 mg p.o. at bedtime FENa: LR at 175 mils per hour, n.p.o. until bowel movement Code Status: Full code DVT PPX: SCDs PT/OT: Not indicated Dispo: Admit to [facility] for observation, discharge pending bowel movement Kevin Pereira MD PGY 2, FCM This chart was completed utilizing [employer] voice recognition software. Grammatical errors, random word insertions, pronoun errors, and in complete sentences are an occasional consequence of the system. Any questions or concerns about the content, text, or information contained within the body of this dictation should be addressed directly to the physician for clarification. (2) Colitis: (3) Pancreatic lesion: (4) Coronary artery disease: (5) History of COPD: (6) History of hypertension: (7) History of anxiety: (8) History of depression: (9) History of BPH: History of Present Illness Chief Complaint: Abdominal pain and distention Primary Care Provider: ROSALIA Yoder Patient is a 69-year-old male with a past medical history of coronary artery disease status post PCI 9 years ago, COPD on 3 times weekly Zithromax, hypertension, history of hepatitis C, history of BPH, history of asthma, history of anxiety and depression, and history of ileus/obstruction most recent episode 1-1/2 years ago. The patient presents for evaluation of abdominal pain and distention that started 3 days ago. The patient reports that he was in his usual state of health, until eating a breaded veal cutlet for dinner. He has not been able to stool since consuming this approximately 3 days. The shelter staff attempted to induce a bowel movement using laxatives and milk of magnesia without success. He describes his current symptoms as central abdominal tenderness and distention with associated pain that is currently 7 out of 10 but can flare up to 10 out of 10. Of note the patient was asking about pain medication during the interview stating that the medication he received when he was admitted is wearing off. The patient is able to eat and drink, and during my evaluation of the patient he had a prolonged bout of flatulence indicating his bowel function is intact. Upon presentation to the ER a CBC, CMP, coags, lipase were obtained and were all within normal limits with exception of glucose to 121, and slight elevation in AST to 52. An EKG was obtained that demonstrated normal sinus rhythm,Colonic wall thickening in the descending colon consistent with stercoral colitis. Distention of the majority of the colon most pronounced in the cecum with a large amount of stool seen throughout the colon, no evidence of volvulus, increase in the size of a cystic lesion previously identified at the pancreatic head, trace pelvic ascites, and mild periportal edema. Upon evaluation of the patient he is afebrile vital signs stable, an NG tube had been placed by the ED provider, this is since been discontinued. The patient was given 1 dose of Dilaudid by the ED provider. Given his pain, extensive stool burden, and the fact that he had been given a dose of narcotics, the hospitalist team was consulted for admission. Allergies Allergy/AdvReac Type Severity Reaction Status Date / Time No Known Allergies Allergy Verified 07/03/19 20:06 Home Medications Home Medications Medication Instructions Recorded Confirmed Type Breo Ellipta 1 inh INHALATION DAILY 07/03/19 07/03/19 History Incruse Ellipta 1 inh INHALATION DAILY 07/03/19 07/03/19 History amlodipine 10 mg PO DAILY 07/03/19 07/03/19 History aspirin 81 mg PO DAILY 07/03/19 07/03/19 History atorvastatin 20 mg PO HS 07/03/19 07/03/19 History azithromycin 250 mg PO 3XWK 07/03/19 07/03/19 History calcium polycarbophil [Fiber 625 mg PO DAILY 07/03/19 07/03/19 History Laxative (ca polycarbo)] carvedilol 50 mg PO BID 07/03/19 07/03/19 History clonidine HCl 0.4 mg PO BID 07/03/19 07/03/19 History docusate sodium 100 mg PO BID 07/03/19 07/03/19 History doxepin 25 mg PO DAILY 07/03/19 07/03/19 History doxepin 200 mg PO HS 07/03/19 07/03/19 History guaifenesin [Mucosa] 400 mg PO QID 07/03/19 07/03/19 History ipratropium-albuterol 3 ml INHALATION QID PRN 07/03/19 07/03/19 History levalbuterol tartrate [Xopenex HFA] 2 inh INHALATION QID PRN 07/03/19 07/03/19 History magnesium hydroxide [Milk of 30 ml PO HS PRN 07/03/19 07/03/19 History Magnesia] nitroglycerin [Nitrostat] 0.4 mg SUBLINGUAL DIRECTED PRN 07/03/19 07/03/19 History polyethylene glycol 3350 17 g PO BID 07/03/19 07/03/19 History tamsulosin 0.8 mg PO HS 07/03/19 07/03/19 History theophylline 450 mg PO BID 07/03/19 07/03/19 History bisacodyl 5 mg PO DAILY PRN #1 tab 07/04/19 Rx Past Med/Surg History Medical History Coronary artery disease (Chronic) History of anxiety (Chronic) History of asthma (Chronic) History of BPH (Chronic) History of COPD (Chronic) History of depression (Chronic) History of hepatitis C (Chronic) History of hypertension (Chronic) Pancreatic lesion (Acute) Surgical History Status post arthroscopic knee surgery (Resolved) Status post hemorrhoidectomy (Resolved) Status post hernia repair (Resolved) Social History Preferred Language: Finnish Communication Ability: Effective Assistant Professor Of English Required: No Beliefs That Will Affect Care: None Current Living Situation: Other Current Living Situation Comment: [facility] Other Information That Helps Us Care for You: No Feels Safe at Home: Yes Safety Concerns: Feels Safe At This Time Smoking Status: Former smoker Hx Alcohol Use: No Hx Substance Use: No Review of Systems Review of Systems: All systems reviewed & are unremarkable except as noted in HPI & below Physical Exam Physical Exam: General: Middle-aged gentleman lying in bed no acute distress HEENT: Normocephalic atraumatic Neck: Trachea midline, negative JVD, normal to visual inspection Cardiac: Regular rate and rhythm, I did not appreciate any significant murmurs rubs or gallops, normal S1, normal S2, negative pedal edema, negative calf tenderness Respiratory: Clear to auscultation bilaterally without significant, wheezes, rales, rhonchi. Symmetrical chest expansion bilaterally no increased work of breathing GI: Bowel sounds present, distended, tender to palpation throughout all, quadrants, no rebound, no guarding MSK: Moves all extremities Neuro: Alert and oriented x4 Psych: Calm and cooperative, asking for pain medication Results & Data Vital Signs (Past 12 Hours) Vital Signs Temp Pulse Resp BP Pulse Ox 07/03/19 18:00 74 19 96 07/03/19 17:30 67 20 07/03/19 17:21 64 19 96 07/03/19 17:06 68 24 164/82 H 96 07/03/19 17:00 36.6 C 65 22 164/82 H 98 Laboratory Results 07/03/19 07/03/19 07/03/19 Range/Units 18:33 18:28 18:28 WBC (4.8-10.8) K/uL RBC (4.7-6.1) M/uL Hgb (14.0-18.0) g/dL Hct (42-52) % MCV (80-100) fL MCH (25-34) pg MCHC (32-36) g/dL RDW Std Deviation (36.4-46.3) fL RDW Coeff of [place] (11.5-14.5) % Plt Count (130-400) K/uL MPV (7.4-10.4) fL Immature Gran % (Auto) % Neut % (Auto) % Lymph % (Auto) % [place] % (Auto) % Eos % (Auto) % Baso % (Auto) % Immature Gran # (Auto) (0.00-0.02) K/uL Neut # (Auto) (1.4-6.5) K/uL Lymph # (Auto) (1.2-3.4) K/uL [place] # (Auto) (0.11-0.59) K/uL Eos # (Auto) (0-0.5) K/uL Baso # (Auto) (0-0.2) K/uL PT 11.2 (9.0-12.0) Seconds INR 1.1 (0.9-1.1) APTT 27.9 (21.0-31.0) Seconds PTT Ratio 1.0 Sodium 140 (136-145) mmol/L Potassium 3.7 (3.5-5.1) mmol/L Chloride 110 H (98-107) mmol/L Carbon Dioxide 24 (21-32) mmol/L Anion Gap 6.0 (3-11) BUN 13 (7-18) mg/dl Creatinine 1.34 (0.6-1.4) mg/dl POC Creatinine 1.3 (0.6-1.3) mg/dl Est Cr Clr Drug Dosing 60.5 ml/min Est GFR ( Amer) 63.1 Est GFR (Non-Af Amer) 54.4 BUN/Creatinine Ratio 10.1 (10-20) Glucose 121 H (70-99) mg/dl Calcium 8.9 (8.5-10.1) mg/dl Total Bilirubin 0.6 (0.2-1) mg/dl AST 52 H (15-37) U/L ALT 69 (12-78) U/L Alkaline Phosphatase 88 (45-117) U/L Troponin I < 0.015 (0-0.045) ng/ml Total Protein 7.8 (6.4-8.2) gm/dl Albumin 4.1 (3.4-5.0) gm/dl Globulin 3.7 (2.5-4.0) gm/dl Albumin/Globulin Ratio 1.1 (0.9-2) Lipase 88 (73-393) U/L 07/03/19 Range/Units 18:28 WBC 10.90 H (4.8-10.8) K/uL RBC 4.38 L (4.7-6.1) M/uL Hgb 14.1 (14.0-18.0) g/dL Hct 39.8 L (42-52) % MCV 90.9 (80-100) fL MCH 32.2 (25-34) pg MCHC 35.4 (32-36) g/dL RDW Std Deviation 44.1 (36.4-46.3) fL RDW Coeff of [place] 13.5 (11.5-14.5) % Plt Count 217 (130-400) K/uL MPV 8.7 (7.4-10.4) fL Immature Gran % (Auto) 0.2 % Neut % (Auto) 82.4 % Lymph % (Auto) 10.9 % [place] % (Auto) 4.3 % Eos % (Auto) 2.1 % Baso % (Auto) 0.1 % Immature Gran # (Auto) 0.02 (0.00-0.02) K/uL Neut # (Auto) 8.98 H (1.4-6.5) K/uL Lymph # (Auto) 1.19 L (1.2-3.4) K/uL [place] # (Auto) 0.47 (0.11-0.59) K/uL Eos # (Auto) 0.23 (0-0.5) K/uL Baso # (Auto) 0.01 (0-0.2) K/uL PT (9.0-12.0) Seconds INR (0.9-1.1) APTT (21.0-31.0) Seconds PTT Ratio Sodium (136-145) mmol/L Potassium (3.5-5.1) mmol/L Chloride (98-107) mmol/L Carbon Dioxide (21-32) mmol/L Anion Gap (3-11) BUN (7-18) mg/dl Creatinine (0.6-1.4) mg/dl POC Creatinine (0.6-1.3) mg/dl Est Cr Clr Drug Dosing ml/min Est GFR ( Amer) Est GFR (Non-Af Amer) BUN/Creatinine Ratio (10-20) Glucose (70-99) mg/dl Calcium (8.5-10.1) mg/dl Total Bilirubin (0.2-1) mg/dl AST (15-37) U/L ALT (12-78) U/L Alkaline Phosphatase (45-117) U/L Troponin I (0-0.045) ng/ml Total Protein (6.4-8.2) gm/dl Albumin (3.4-5.0) gm/dl Globulin (2.5-4.0) gm/dl Albumin/Globulin Ratio (0.9-2) Lipase (73-393) U/L Medications Administered Current Inpatient Medications Ioversol (Optiray 320 100ml) 94 ml IV ONCE PRN PRN Reason: Interaction Checking Stop: 07/07/19 19:00 Last Admin: 07/03/19 19:02 Dose: 94 ml Documented by: Code Status & VTE Plan Code Status Full Code VTE Prophylaxis Plan VTE Prophylaxis will be ordered: Yes Supervising Physician Co-Signing Physician Notes Attending addendum: I have physically seen this patient, have supervised the medical residents activities, and agree with the H&P unless as otherwise noted. Assessment and Plan: Stercoral colitis/chronic constipation/history recurrent ileus, obstruction, stercoral colitis- Observation to medical surgical floor NPO except medications LR at 175 mils per hour Bowel regimen: MiraLAX, Dulcolax, milk of molasses enema, milk of magnesia as noted. Zofran 4 mg IV every 6 hours as needed. Toradol 15 mg IV every 6 hours as needed. Acetaminophen 6 mg p.o. every 4 hours as needed. Cystic pancreatic lesion- Being followed closely by GI in the outpatient setting CAD/hypertension- Continue usual medications with hold parameters: Amlodipine, carvedilol and clonidine. Remainder of orders and notations as noted. Resident Activity Tracking Resident Involvement: Resident Care Provided Care Provided: Adult [facility] Medicine
[2019-07-03] MEDS ORDERED: ONDANSETRON INJ 2 MG/ML 2 ML VIAL IV PRN (22:39)
[2019-07-03] MEDS ORDERED: DOXEPIN HCL 50 MG CAPSULE PO SCH (22:39)
[2019-07-03] MEDS ORDERED: KETOROLAC TROMETHAMINE 15 MG/ML VIAL IV PRN (22:39)
[2019-07-03] MEDS ORDERED: bisacodyL 10 MG SUPP PR STA (22:39)
[2019-07-03] MEDS ORDERED: ALBUT/IPRATROP 3MG/0.5MG NEB 3 ML VIAL INH PRN (22:39)
[2019-07-03] MEDS ORDERED: LEVALBUTEROL TARTRATE 15 GM HFA.AER.AD INH PRN (22:39)
[2019-07-03] MEDS ORDERED: PNEUMOCOCCAL POLYSACCHARIDES 25 MCG/0.5 ML VIAL/SYR IM ONE (22:54)
[2019-07-03] MEDS ORDERED: PNEUMOCOCCAL ADMINISTRATION CHARGE ONE (22:54)
[2019-07-03] MEDS ORDERED: bisacodyL 5 MG TABEC PO ONE (23:00)
[2019-07-04] MEDS: LACTATED RINGER'S 1,000 ML IV SCH ×3 (00:04→10:30)
[2019-07-04] MEDS: carvediloL 25 MG TAB PO SCH ×2 (00:04→08:39)
[2019-07-04] MEDS: MAGNESIUM HYDROXIDE SUSP 30 ML UDC PO SCH ×3 (00:05→10:56)
[2019-07-04] MEDS: POLYETHYLENE (MIRALAX) 17 GM PACK PO SCH ×8 (00:07→13:09)
[2019-07-04] MEDS: ACETAMINOPHEN 325 MG TAB PO SCH ×4 (00:09→13:54)
[2019-07-04] MEDS: THEOPHYLLINE 400 MG EXTENDED REL TAB PO SCH ×2 (00:44→10:13)
[2019-07-04 01:32] LABS: Appearance Urine Clear (Clear); Bilirubin Urine Negative (Negative); Blood Urine Negative (Negative); Color Urine Yellow; Glucose Urine UA Negative (Negative); Ketones Urine 1+ (Negative); Leukocyte Esterase Urine Negative (Negative); Nitrite Urine Negative (Negative); Protein Urine Negative (Negative); Specific Gravity Urine 1.035 (1.000-1.030); Urobilinogen Urine Negative (Negative); pH Urine 5.5 (4.5-7.5)
[2019-07-04] MEDS: bisacodyL 5 MG TABEC PO SCH ×2 (05:31→13:09)
[2019-07-04] MEDS ORDERED: Nursing to Pharmacy Communication ONE (05:32)
[2019-07-04 08:22] LABS: Basophils # (auto) 0.02 K/uL (0-0.2); Basophils % (auto) 0.2 %; Eosinophils # (auto) 0.08 K/uL (0-0.5); Eosinophils % (auto) 0.9 %; Hematocrit (blood only) 38.3 % (42-52); Hemoglobin 13.5 g/dL (14.0-18.0); Immature Granulocytes # (auto) 0.01 K/uL (0.00-0.02); Immature Granulocytes % (auto) 0.1 %; Lymphocytes % (auto) 24.9 %; Mean Corpuscular Hgb Conc 35.2 g/dL (32-36); Mean Corpuscular Volume 90.8 fL (80-100); Mean Platelet Volume 8.6 fL (7.4-10.4); Monocytes # (auto) 0.73 K/uL (0.11-0.59); Monocytes % (auto) 7.9 %; Neutrophils # (auto) 6.08 K/uL (1.4-6.5); Platelet Count 208 K/uL (130-400); RDW Coefficient of Variation 13.5 % (11.5-14.5); RDW Standard Deviation 44.8 fL (36.4-46.3); Red Blood Count 4.22 M/uL (4.7-6.1); White Blood Count 9.22 K/uL (4.8-10.8)
[2019-07-04] MEDS: guaiFENesin 200 MG TAB PO SCH ×2 (08:41→13:54)
[2019-07-04 08:57] LABS: BUN Creatinine Ratio 11.1 (10-20); Calcium 9.1 mg/dl (8.5-10.1); Creatinine Clr Calc Pharmacy 70.9 ml/min; Est GFR (African American) 76.7; Est GFR (Non-African American) 66.2; Potassium 3.9 mmol/L (3.5-5.1)
[2019-07-04] MEDS ORDERED: FLUTICASONE/VILANTEROL 100/25MCG 14 PUFFS/INHALER INH SCH (09:00)
[2019-07-04] MEDS ORDERED: ASPIRIN 81 MG ECTAB PO SCH (09:00)
[2019-07-04] MEDS ORDERED: UMECLIDINIUM BROMIDE 62.5MCG/BLISTER 7 PUFFS/INHALER INH SCH (09:00)
[2019-07-04] MEDS ORDERED: DOXEPIN HCL 25 MG CAPSULE PO SCH (09:00)
[2019-07-04] MEDS ORDERED: AMLODIPINE BESYLATE 5 MG TAB PO SCH (09:00)
[2019-07-04] MEDS ORDERED: DOCUSATE SODIUM 100 MG CAP PO SCH (09:00)
[2019-07-04] MEDS ORDERED: CALCIUM POLYCARBOPHIL 625MG TAB PO SCH (09:00)
[2019-07-04] MEDS ORDERED: cloNIDine HCL 0.1 MG TAB PO SCH (09:00)
--- NOTE | 2019-07-04 15:53 | Discharge Summary ---
Date of Service July 04, 2019 Admission HPI Per Admitting Provider Patient is a 69-year-old male with a past medical history of coronary artery disease status post PCI 9 years ago, COPD on 3 times weekly Zithromax, hypertension, history of hepatitis C, history of BPH, history of asthma, history of anxiety and depression, and history of ileus/obstruction most recent episode 1-1/2 years ago. The patient presents for evaluation of abdominal pain and distention that started 3 days ago. The patient reports that he was in his usual state of health, until eating a breaded veal cutlet for dinner. He has not been able to stool since consuming this approximately 3 days. The [facility] staff attempted to induce a bowel movement using laxatives and milk of magnesia without success. He describes his current symptoms as central abdominal tenderness and distention with associated pain that is currently 7 out of 10 but can flare up to 10 out of 10. Of note the patient was asking about pain medication during the interview stating that the medication he received when he was admitted is wearing off. The patient is able to eat and drink, and during my evaluation of the patient he had a prolonged bout of flatulence indicating his bowel function is intact. Upon presentation to the ER a CBC, CMP, coags, lipase were obtained and were all within normal limits with exception of glucose to 121, and slight elevation in AST to 52. An EKG was obtained that demonstrated normal sinus rhythm,Colonic wall thickening in the descending colon consistent with stercoral colitis. Distention of the majority of the colon most pronounced in the cecum with a large amount of stool seen throughout the colon, no evidence of volvulus, increase in the size of a cystic lesion previously identified at the pancreatic head, trace pelvic ascites, and mild periportal edema. Upon evaluation of the patient he is afebrile vital signs stable, an NG tube had been placed by the ED provider, this is since been discontinued. The patient was given 1 dose of Dilaudid by the ED provider. Given his pain, extensive stool burden, and the fact that he had been given a dose of narcotics, the hospitalist team was consulted for admission. Admission Exam Per Admitting Provider General: Middle-aged gentleman lying in bed no acute distress HEENT: Normocephalic atraumatic Neck: Trachea midline, negative JVD, normal to visual inspection Cardiac: Regular rate and rhythm, I did not appreciate any significant murmurs rubs or gallops, normal S1, normal S2, negative pedal edema, negative calf tenderness Respiratory: Clear to auscultation bilaterally without significant, wheezes, rales, rhonchi. Symmetrical chest expansion bilaterally no increased work of breathing GI: Bowel sounds present, distended, tender to palpation throughout all, quadrants, no rebound, no guarding MSK: Moves all extremities Neuro: Alert and oriented x4 Psych: Calm and cooperative, asking for pain medication Principal Diagnosis Constipation Discharge Exam General: Resting comfortably HEENT: NC/AT; PERRLA with EOMI; [place] conjunctiva, MMM. No erythema of posterior pharynx Neck: Supple and nontender Cardiac: RRR Lungs: CTA bilaterally Abdomen: Bowel normoactive X 4; Nontender to palpation Extremities: Warm. No edema present Neuro: No focal weakness Skin: No rash Discharge Data Allergies Allergy/AdvReac Type Severity Reaction Status Date / Time No Known Allergies Allergy Verified 07/03/19 20:06 Consultations 07/03/19 19:47 ED Decision to Admit Stat 07/03/19 22:39 Consult Gastroenterology Routine Ordered Studies 07/03/19 17:38 CT abd pelvis IV con only Stat CXR Hospital Course (1) Fecal impaction of colon: CT showed stercoral colitis. LR at 175 cc/hr. Received Miralax q2hr, Dulcolax q6hr, MOM q6hr -- had 2 large BMs this morning along with resolution of abd pain. Tolerated regular diet prior to discharge. Recommend continuing Miralax BID along with Colace 100 mg BID following discharge to [facility]. (2) Colitis: As noted above. (3) Pancreatic lesion: Initially identified in 2013. Repeat imaging in Apr 2017 showed similar mass. S/p EUS with biopsy with Dr. Trinh, showed blood. Imaging during this admission showed progression of mass, was 2.0 x 1.8 cm. Recommend outpatient follow up with GI for further evaluation. (4) History of COPD: Continued Azithromycin 250 mg 3x/week, Breo-Ellipta, Duonebs QID, Xopenex prn, Mucinex and Theophylline. No acute exacerbation noted. (5) Coronary artery disease: S/p SC 9 years ago with stents. Continued statin, coreg and ASA. (6) History of hypertension: Continued amlodipine, coreg and clonidine. (7) History of BPH: Continued flomax. (8) History of anxiety: Continued doxepin as prescribed. Discharged back to [facility] on 07/04/19. Total Time Total Time Spent Total Time Spent (In Minutes): >30 minutes Total Time Includes: Examination of the Patient, Discharge Planning, Medication Reconciliation, Communication With Other Providers and Other Discharge Plan Discharge Items [facility]position[facility] Reason For Visit: STERCORAL COLITIS Discharge Diagnosis: Stercoral Colitis, Constipation Condition on Discharge: Good Goals: You have been hospitalized for an acute medical problem. During your stay at [facility], we have made an effort to correct the problem that brought you to the hospital while keeping you as comfortable as possible. Medications were used to bring your condition under control and your discharge instructions will include directions for any medications you should take after leaving the hospital. Please make sure you see your Primary Care Provider as part of your follow up plan. Activity: As commented below Exercise/Sports: Gradually increase as tolerated Non-emergency contact: Primary Care Provider Call non-emergency contact if: you have any medication questions and your symptoms worsen Follow-up/Referrals: Paresh LINDSEY [Primary Care Provider] - Diet: Regular Addtl Attending Provider Instructions: 1. Constipation * Please take Miralax twice daily scheduled & Colace 100 mg twice daily following discharge to prevent further episodes of constipation. * Increase Miralax dose or consider addition of Dulcolax 5 mg daily if no improvement with scheduled Miralax & Colace. Pending Studies at Discharge: No Stand-Alone Forms: Call Back Authorization, [facility] Skilled Items Patient informed of condition?: Yes DNR: No Discharge Level of Care: Other Communicable Disease: No Discharge Prognosis: Improving Lines: None Urinary Catheter: No Medications and DC Order Prescriptions: New bisacodyl 5 mg Tablet,Delayed Release (Dr/Ec) 5 mg PO DAILY PRN (Reason: constipation) Qty: 1 RF: 0 Continued carvedilol 25 mg Tablet 50 mg PO BID RF: 0 atorvastatin 20 mg Tablet 20 mg PO HS RF: 0 ipratropium-albuterol 0.5 mg-3 mg(2.5 mg base)/3 mL Solution For Nebulization 3 ml INHALATION QID PRN (Reason: Shortness Of Breath) RF: 0 azithromycin 250 mg Tablet 250 mg PO 3XWK RF: 0 doxepin 25 mg Capsule 25 mg PO DAILY RF: 0 aspirin 81 mg Tablet,Delayed Release (Dr/Ec) 81 mg PO DAILY RF: 0 clonidine HCl 0.2 mg Tablet 0.4 mg PO BID RF: 0 magnesium hydroxide [Milk of Magnesia] 400 mg/5 mL Suspension 30 ml PO HS PRN (Reason: Constipation) RF: 0 tamsulosin 0.4 mg Capsule 0.8 mg PO HS RF: 0 amlodipine 10 mg Tablet 10 mg PO DAILY RF: 0 doxepin 100 mg Capsule 200 mg PO HS RF: 0 theophylline 450 mg Tablet Extended Release 12 Hr 450 mg PO BID RF: 0 calcium polycarbophil [Fiber Laxative (ca polycarbo)] 625 mg Tablet 625 mg PO DAILY RF: 0 nitroglycerin [Nitrostat] 0.4 mg Tablet, Sublingual 0.4 mg sublingual DIRECTED PRN (Reason: Chest Pain) RF: 0 docusate sodium 100 mg Capsule 100 mg PO BID RF: 0 polyethylene glycol 3350 17 gram/dose Powder 17 g PO BID RF: 0 guaifenesin [Mucosa] 400 mg Tablet 400 mg PO QID RF: 0 levalbuterol tartrate [Xopenex HFA] 45 mcg/actuation Hfa Aerosol Inhaler 2 inh INHALATION QID PRN (Reason: Shortness Of Breath) RF: 0 Breo Ellipta 100-25 mcg/dose Blister With Device 1 inh INHALATION DAILY RF: 0 Incruse Ellipta 62.5 mcg/actuation Blister With Device 1 inh INHALATION DAILY RF: 0 Admission Data Admit Date/Time: 07/03/19 21:42 Attending Provider: Eugenio Musa Admit Provider: Kevin Pereira I. [facility] Other Providers: Elyssa Musa ; Rochelle Dodge ; Ivania Garcia ; Clin Shelby mendiola ; Vish Chowdhury ; Karey Izquierdo ; Alan Grider ; Maria Isabel Nelson ; Wiley Holly ; Abhi Brown ; Saba Scott ; Deyanira Celestin ; Janis Coley ; Flor Medrano ; Toby Neumann ; Rishi Mark Other Interventions: Discharge Summary Assessment (RN) Last Done: 07/04/19 11:52 DC Date/Time DO NOT enter until pt leaves facility: 07/04/19 14:51 Supervising Physician Co-Signing Physician Notes Attending note: patient seen and examined with Suzy Anh PA-C. I agree with her discharge summary. I personally reviewed the labs and imaging findings. Patient feeling much better after having two large BM last night eating well, tolerating a diet he is ordered Miralax at [facility] but he may have been refusing stressed to him the importance of keeping bowels regular - Constipation, stercoral colitis resolved, two large BM after admission no pain, eating well, feels ready for d/c will continue stool softener, recommend Miralax daily to keep bowels regular encourage fluids, fiber, activity Coding Level of Care Code D/C Day Management >30 mins Diagnoses Fecal impaction of colon K56.41 Colitis K52.9 Pancreatic lesion K86.9 History of COPD Z87.09 Coronary artery disease I25.10 History of hypertension Z86.79 History of BPH Z87.438 History of anxiety Z86.59
--- NOTE | 2019-07-04 20:08 | Electrocardiogram Report ---
Test Reason : Blood Pressure : / mmHG Vent. Rate : 068 BPM Atrial Rate : 068 BPM P-R Int : 134 ms QRS Dur : 098 ms QT Int : 376 ms P-R-T Axes : 074 059 079 degrees QTc Int : 399 ms Normal sinus rhythm Nonspecific T wave abnormality Abnormal ECG When compared with ECG of 08-APR-2017 08:32, ST no longer depressed in Inferior leads Confirmed by Ant Shin ([id number]) on 07/04/2019 8:07:50 PM Referred By: [facility] Confirmed By:Ulises Shin
[2019-07-04] MEDS ORDERED: TAMSULOSIN HCL 0.4 MG CAP PO SCH (21:00)
[2019-07-04] MEDS ORDERED: ATORVASTATIN 20 MG TAB PO SCH (21:00)
--- NOTE | 2019-07-04 21:27 | Consultation Report ---
DATE OF CONSULTATION: 07/04/2019 GASTROENTEROLOGY CONSULT HISTORY OF PRESENT ILLNESS: I was asked by Dr. Pereira to consult on this gentleman for obstipation. The patient has been followed in the past by Dr. Trinh when he was with the [facility]. He presented last night with fecal impaction, but has received MiraLax and milk of magnesia and has had excellent results with bowel movements. He has no abdominal pain and he is reporting that he is going to be discharged back to the facility today. My only recommendation is to continue on daily MiraLax with p.r.n. milk of magnesia to help with his bowel movements. This should continue at the institution he returns to. He can follow up with Dr. Trinh as an outpatient. His abdomen is benign.
--- NOTE | 2019-07-05 04:04 | Billing Data ---
Date of Service July 05, 2019 Coding Level of Care Code 29119 OBS Care - Level 3
[2019-07-06] MEDS ORDERED: AZITHROMYCIN 250 MG TAB PO SCH (09:00)
== END 2019-07-04 14:51 ==
LOC: ED 16:59 → 2W 16:59 → SUATTDRO 21:42 → 2W 22:30